=== PATIENT | male | born 1945 | race Caucasian/White ===

== ENCOUNTER 2019-05-13 11:00 | Outpatient (RCR) | payer MEDICARE, SELFPAY ==
--- NOTE | 2019-04-12 12:44 | LSVTBIG ---
PHYSICAL THERAPY EVALUATION AND LSVT RECOMMENDATION Thank you for referring this patient to [facility]. I recommend All Bernabe participate in skilled PT with LSVT BIG program to promote optimal function. Please review, sign, date and return this plan of care NICHO. I agree with and certify that the following plan of care is medically necessary. Referring Physician Date Therapy Discipline Physical Therapy Evaluation Self Report Self Report Pain Level 0 Parkinson's Related History Parkinson's Related History Diagnosis/Stage Date Of Initial 15 years ago Diagnosis What Were Your Initial Symptoms Of tremor Parkinson's Disease? Do You Have A Tremor? Yes Describe Tremors right hand only Medication For Parkinson's Disease carbadopa-levadopa In What Ways Are Your Medications For reduce tremor, increases Parkinson's Helpful? overall mobility; takes Prapexole for tremor Does Your Parkinson Medication Affect stuttering steps, decreased Your Movement? Please Describe voice, decreased amplitude Do You Experience Dyskinesias? yes Have You Had Orthopedic Surgery? Please no orthopedic surgeries, but Describe left knee has history of injury and is painful Social History Social History Stair Rails Yes,Bilateral What House Hold Chores Do You loading and unloading dishes; Participate In? takes trash bags out to trash cans takes laundry in and out; patient has been hospitalized twice (impacted bowels, dehydration) since last bout of physical therapy LSVT program that was just under a year ago. All is now using a wheelchair more often and has decreased ability to use rollator. he is also using walking sticks (learned from [employer] class after hospitalization). Motor Symptoms Motor Symptoms What Do You Do When You Want To Move The take a deep breath and try Best You Possibly Can? again straighten back up Has Parkinson's Disease Caused You To Be Yes Less Active? How Has Parkinson's Disease Caused You is now using a wheelchair to To Be Less Active? enter/exit restaurants, when several months ago he was using rollator Have You Noticed If Your Movement Is Yes Slower Than It Used To Be? Query Text:i.e. Walking,Getting Dressed Have You Noticed Changes In Your Posture Yes ?
--- NOTE | 2019-04-15 11:14 | LSVTBIG ---
OCCUPATIONAL THERAPY INITIAL LSVT EVALUATION Thank you for referring this patient to [facility]. This patient will benefit from skilled therapy services for LSVT BIG program. Plan to have the patient attend OT 2x/week and PT 2x/week for 4 sessions/week for 4 weeks. Please review, sign, date and return this plan of care NICHO. I agree with and certify that the following plan of care is medically necessary. Referring Physician Date Attending Provider: Alex Carroll MD *LSVT BIG Evaluation Start: 04/12/19 10:41 Freq: Status: Active Protocol: Document 04/15/19 10:07 ALEXANDRA (Rec: 04/15/19 10:39 ALEXANDRA [email or web address]) Therapy Discipline Therapy Discipline Therapy Discipline Occupational Therapy Therapy Assessment Status Assessment Status Assessment Status Evaluation Pain Assessment Timing of Pain Assessment Timing of Pain Assessment Assessment Self Report Self Report Pain Level 0 Pain Score Pain Score 0: Self Report Parkinson's Related History Parkinson's Related History Diagnosis/Stage Date Of Initial 15 years ago Diagnosis What Were Your Initial Symptoms Of tremor Parkinson's Disease? Do You Have A Tremor? Yes Describe Tremors right hand only Medication For Parkinson's Disease carbadopa-levadopa In What Ways Are Your Medications For reduce tremor, increases Parkinson's Helpful? overall mobility; takes Prapexole for tremor Does Your Parkinson Medication Affect stuttering steps, decreased Your Movement? Please Describe voice, decreased amplitude Do You Experience On/Off Symptoms? worst in the morning, best Please Describe after his second dose of medication Do You Experience Dyskinesias? yes Have You Had Orthopedic Surgery? Please no orthopedic surgeries, but Describe left knee has history of injury and is painful Social History Social History Stair Rails Yes,Bilateral What House Hold Chores Do You loading and unloading dishes; Participate In? takes trash bags out to trash cans takes laundry in and out; it's been about a month since he's been able to take the trash cans to the street; he depends on the walker so much that he cannot carry items and walk at the same time, which limits his ability to carry his clothes into the bathroom to take a shower, carrying drinks and snaks from one room to
--- NOTE | 2019-05-03 11:05 | PCOTNOTE ---
Patient called and cancelled tx today. No reason given.
--- NOTE | 2019-05-11 11:10 | PCPTNOTE ---
Patient called & cancelled scheduled appointment this date due to being ill.
--- NOTE | 2019-05-13 11:51 | LSVTBIG ---
OCCUPATIONAL THERAPY DISCHARGE REPORT 05/13/2019 Thank you for referring this patient to [facility][Note 3]. All has completed 4 weeks of LSVT BIG program and will be discharged from skilled OT at this time. Please review, sign, date and return this D/C Report NICHO. I agree with and certify that the following plan of care is medically necessary. Referring Physician Date Admitting Provider: Attending Provider: Alex Carroll MD Referring Provider: *LSVT BIG Re-Evaluation Therapy Discipline Therapy Discipline Occupational Therapy Therapy Assessment Status Assessment Status Re-evaluation Evaluation Information Problem Diagnosis Parkinson's Disease Additional Evaluation Detail All is a 74 year-old, left handed male who has been participating in outpatient occupational and physical therapy for treatment of his neurological movement disorder , PD, utilizing LSVT BIG treatment program. All and his has been very compliant and cooperative throughout the program. He has been completing a series of repetitive exercises and functional tasks targeting gross flexibility, challenging his balance, facilitating big movements, and big posture. These exercises are aimed at increased amplitude of movement while addressing the sensorimotor mismatch of PD with the end goal of retraining All's perception of normal movement. Subjective Information All and his report that Query Text:As Reported By Patient/ he has improved functionally Family with getting around the kitchen, walking through doors , walking distances, LB dressing tasks. She states that his episodes of freezing are about the same and are especially worse when going through doorways. Pain Assessment Timing of Pain Assessment Timing of Pain Assessment Re-assessment Self Report Self Report Pain Level 0 Pain Score Pain Score 0: Self Report ADL Assessment ADL Assessment Timed Mobility Related Task Simulated task - unloading
--- NOTE | 2019-05-17 11:45 | PCPTNOTE ---
PHYSICAL THERAPY PLAN OF CARE UPDATE AND PROGRESS REPORT Thank you for referring this patient to [facility]. I recommend All Bernabe continue to participate in physical therapy 2/week for 4 weeks in order to re-emphasize gait pattern, balance, and strength. While he demonstrates progress toward more normal levels of function,he and his hope to see what more function can be gained. Please review, sign, date and return this plan of care NICHO. I agree with and certify that the following plan of care is medically necessary. Referring Physician Date Therapy Discipline Physical Therapy Re-assessment Parkinson's Related History Diagnosis/Stage Date Of Initial 15 years ago Diagnosis What Were Your Initial Symptoms Of tremor Parkinson's Disease? Do You Have A Tremor? Yes Describe Tremors right hand only Medication For Parkinson's Disease carbadopa-levadopa In What Ways Are Your Medications For reduce tremor, increases Parkinson's Helpful? overall mobility; takes Prapexole for tremor Does Your Parkinson Medication Affect stuttering steps, decreased Your Movement? Please Describe voice, decreased amplitude Do You Experience Dyskinesias? yes Have You Had Orthopedic Surgery? Please no orthopedic surgeries, but Describe left knee has history of injury and is painful Social History Stair Rails Yes,Bilateral What House Hold Chores Do You loading and unloading dishes; Participate In? takes trash bags out to trash cans takes laundry in and out; patient has been hospitalized twice (impacted bowels, dehydration) since last bout of physical therapy LSVT program that was just under a year ago. All is now using a wheelchair more often and has decreased ability to use rollator. he is also using walking sticks (learned from [employer] class after hospitalization). Motor Symptoms No new falls; uses Walking sticks in order to walk from car and house; has had a couple of episodes of increased dementia related deficit Balance Assessment Teixeira Balance Assessment: 49/56 improved from 42/56 Time Up Go (TUG) Timed Up and Go Test 21seconds improved from 41seconds Assistive Devices Walker, Rollator Comments significant freezing noted with turning 5 Time Sit to Stand Time in Seconds 10.28seconds improved from 13.43seconds Gait Assessment Gait Pattern Assessment Gait Pattern Shuffled Gait Other
--- NOTE | 2019-05-18 12:58 | PCPTNOTE ---
Patient called & cancelled scheduled appointments until 06/07/2019 due to COVID-19 concerns. They will call paper machine backtender to the date of 06/07/2019 to determine if that appointment will be kept. Care plan will be left open until 06/07/2019 unless otherwise stated.
--- NOTE | 2019-05-26 13:51 | PCPTNOTE ---
Patient called & cancelled scheduled appointment this date due to Covid 19
--- NOTE | 2019-05-26 14:12 | PCPTNOTE ---
Patient has cancelled all appointments until 06/07/2019 due to COVID-[address]/precautions. Will hold his charge for up to 30days beyond this date due to possible further precautions.
--- NOTE | 2019-06-14 13:28 | PCPTNOTE ---
Attending Provider: Alex Carroll MD Patient:All Bernabe Date of :1945 All had originally cancelled and delayed appointments due to COVID-19 precautions but he has now cancelled his appointments indefinitely. We will be happy to work with him in the future, but at this time his chart will be discharged. The goals have been partially met. [facility]. Please review, sign, date and return this discharge summary NICHO. I have been updated about the patient's current status and I agree with discharge from the above service at this time. Referring Physician Date
== END 2019-06-15 08:33 | disposition home or self-care (01) ==
LOC: ANHOT 11:00
PROVIDERS: PCP Family Medicine Adolescent Medicine; Visit Provider Psychiatry & Neurology Neurology
DX: G20 Parkinson's disease (principal)
CPT/HCPCS: 97110; 97162; 97530; 97535

== ENCOUNTER 2019-12-24 06:57 | Outpatient (NON) | payer MEDICARE, SELFPAY ==
[2019-12-24 17:45] LABS: SARS-CoV-2 RNA PCR Negative
== END 2019-12-24 06:58 ==
LOC: ANHCOVIDDT 06:57
PROVIDERS: PCP Family Medicine Adolescent Medicine; Visit Provider Family Medicine Adolescent Medicine
DX: Z20.828 Contact with and (suspected) exposure to other viral communicable diseases (principal); R50.9 Fever, unspecified
CPT/HCPCS: 87635; C9803; U0003

== ENCOUNTER 2020-05-03 19:55 | Inpatient (IN) | payer MEDICARE, SELFPAY ==
--- NOTE | ~2020-05-03 | XR_ITS ---
EXAMINATION: XR abdomen NG/feed tube insert DATE: 05/04/2020 02:25 INDICATION: Nasogastric tube placement. TECHNIQUE: An upright view of the abdomen was obtained. COMPARISON: CT abdomen and pelvis 05/04/2020 FINDINGS: The lower abdomen is excluded. There is dilated small bowel in the midabdomen. The colon is normal in caliber. The nasogastric tube tip is in the stomach. There are changes of vertebroplasty i n lumbar spine. IMPRESSION: 1. Nasogastric tube tip in the stomach. 2. Small bowel obstruction. Reviewed, dictated and finalized at location A. RVISOR SLATE SPLITTING
--- NOTE | ~2020-05-03 | XR_ITS ---
EXAMINATION: XR abdomen/kub 1V EXAM DATE: 05/06/2020 05:36 INDICATION: Small bowel obstruction. Mesenteric masses. TECHNIQUE: Frontal projection(s) of the abdomen for interpretation. Comparison is made to prior exami nation from 05/04/2020. FINDINGS: There are multiple loops of severely distended small bowel, more loops identified on this e xam, although there could just be more gas present making them visible. Feeding tube is no longer eugenia ntified. There are chronic lumbar compression fractures with methylmethacrylate injections at L1 and L2. Lung bases are unremarkable. IMPRESSION: 1. Severely distended small bowel consistent with obstruction. 2. Feeding tube not identified. Reviewed, dictated and finalized at location A. IC HEALTH DIETITIAN
--- NOTE | ~2020-05-03 | XR_ITS ---
EXAMINATION: XR abdomen obstructive series DATE: 05/04/2020 17:19 INDICATION: Possible small bowel obstruction TECHNIQUE: Upright and supine views of the abdomen were obtained. COMPARISON: 0226 hours FINDINGS: The nasogastric tube is in the stomach. Dilated loops of small bowel persist in the midabdo men. No free intraperitoneal gas is identified. Vertebroplasty changes are noted in the lumbar spine. There are minimal airspace opacities of the lung bases, likely atelectasis and pneumonia. IMPRESSION: 1. Small bowel obstruction. 2. Nasogastric tube in the stomach. Reviewed, dictated and finalized at location A. RITY SYSTEMS ENGINEER
--- NOTE | ~2020-05-03 | XR_ITS ---
EXAMINATION: XR chest 1V portable DATE: 05/04/2020 05:56 INDICATION: Multifocal pneumonia. TECHNIQUE: A single frontal view of the chest was obtained. COMPARISON: Chest single view 05/24/2018, CT abdomen and pelvis 05/04/2020 FINDINGS: There are airspace opacities in the lower lung zones. No pleural effusion or pneumothorax. The heart size is normal. The nasogastric tube tip is in the stomach. IMPRESSION: 1. Airspace opacities in the lower lung zones, likely a combination of atelectasis and pneumonia. Reviewed, dictated and finalized at location A. STANT PROFESSOR OF ART IMPRESSION: 1. Airspace opacities in the lower lung zones, likely a combination of atelecta sis and pneumonia.
--- NOTE | ~2020-05-03 | CT_ITS ---
EXAMINATION: CT abdomen pelvis w con DATE: 05/04/2020 00:36 INDICATION: Epigastric abdominal pain. TECHNIQUE: Computed tomography (CT) of the abdomen and pelvis was performed with 100 mL Omnipaque 350 intravenous contrast. Automated exposure control and iterative reconstruction technique were employe d. The dose-length product was 698.38 mGy-cm. COMPARISON: CT abdomen and pelvis 01/21/2019, 08/05/2013 FINDINGS: The visualized portions of the lung bases demonstrates groundglass opacities in the lower l obes, right middle lobe, and lingula. There is crazy paving in right middle lobe. There are airspace opacities with volume loss in the lower lobes. There are tree-in-bud opacities in the lingula. No ple ural effusion. There is left atrial enlargement of the heart. No pericardial effusion. There are rosa nary artery calcifications. There are cysts in the liver measuring up to 2.2 cm. There are gallstones in the gallbladder, which is normal in size. The spleen, pancreas, and adrenal glands are normal. Th ere are simple cysts and hemorrhagic cysts in the kidneys measuring up to 9.4 cm on the left. There i s a 3.0 cm mass in right kidney measuring soft tissue attenuation. There are 3 stones in left kidney measuring up to 7 mm. The appendix is normal. There are multiple dilated loops of small bowel with tr ansition point in right abdomen. The dilatation of these bowel loops is worse than on the prior exam, but both exams demonstrate areas of bowel wall thickening. There is a lipoma in the ascending colon. There are mesenteric masses measuring up to 3.5 x 1.9 cm, increased from 3.0 x 1.9 cm on 01/21/19. T he largest such mass is partially calcified. The second largest mass measures 2.3 x 1.9 cm, increased from 2.1 x 1.4 cm. There is a left inguinal hernia containing fat. There is no free intraperitoneal fluid. There are benign bone islands in the pelvis. There is surgical clips from pelvic lymph node di ssection. There are multiple chronic vertebral body fractures. There are changes of vertebroplasty in L1 and L2. There is a benign bone island in T11 vertebral body. There are multiple hemangiomas in th e spine. IMPRESSION: 1. 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 2. Small bowel obstruction with transition point in right abdomen, likely chronic or recurrent. 3. Diffuse disease in the inferior lungs, most likely pneumonia (especially atypical pneumonia such a s COVID-19 pneumonia). 4. 3.0 cm right kidney mass, which may be a hemorrhagic cyst or less likely a solid neoplasm. Abdomen CT without and with contrast is recommended. Reviewed, dictated and finalized at location A. TABLE TESTER IMPRESSION: 1. 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 2. Small bowel obstruction with transition point in right abdomen, likely chron ic or recurrent. 3. Diffuse disease in the inferior lungs, most likely pneumonia (especially aty pical pneumonia such as COVID-19 pneumonia). 4. 3.0 cm right kidney mass, which may be a hemorrhagic cyst or less likely a s olid neoplasm. Abdomen CT without and with contrast is recommended.
--- NOTE | 2020-05-03 20:00 | ECG_ITS ---
Measurements Intervals Loyal Rate: 85 P: 10 MN: 137 QRS: -60 QRSD: 144 T: 14 QT: 388 QTc: 464 Interpretive Statements SINUS RHYTHM RIGHT BUNDLE BRANCH BLOCK LEFT ANTERIOR FASCICULAR BLOCK BASELINE ARTIFACT- I, III, AVR, AVL, AVF, V2-V3 ABNORMAL ECG Electronically Signed On 05-04-2020 7:11:21 DIRECTOR OF PERIOPERATIVE SERVICES by Nelson Carranza D.O.
[2020-05-03 20:13] VITALS: BP 154/84; PULSE 91; RESP 16; TEMP 36.8; O2SAT 95
[2020-05-03 21:24] LABS: Basophils Percent Auto 0.3 % (0.2-1.2); Eosinophils Absolute Auto 0.1 K/mm3 (0-0.3); Eosinophils Percent Auto 0.9 % (0-4.4); Hematocrit 39.4 % (42.0-52.0); Hemoglobin 13.3 g/dL (14.0-18.0); Immature Granulocyte Absolute 0.02 K/mm3 (0.00-0.031); Immature Granulocyte Percent A 0.3 % (0-0.5); Lymphocytes Absolute Auto 1.38 K/mm3 (0.9-3.2); Lymphocytes Percent Auto 18.5 % (18.3-44.2); Mean Corpuscular HGB Conc 33.8 g/dl (32-36); Mean Corpuscular Hemoglobin 32.1 pg (26-34); Mean Corpuscular Volume 95.2 fl (80-100); Mean Platelet Volume 9.6 fl (7.4-10.4); Monocytes Absolute Auto 0.8 K/mm3 (0.1-0.6); Neutrophils Absolute Auto 5.1 K/mm3 (1.3-6.7); Platelet Count Result 272 k/mm3 (150-375); Red Blood Count 4.14 M/mm3 (4.6-6.20); Red Cell Distribution Width 12.5 % (11.5-14.5); White Blood Count 7.5 K/mm3 (4.5-10.0)
[2020-05-03 21:38] LABS: Albumin Level 3.9 g/dL (3.5-5.1); Alkaline Phosphatase 109 U/L (38-126); Anion Gap 3 mmol/L (8-16); Aspartate Amino Transferase 25 U/L (17-59); Bilirubin,Total 0.7 mg/dL (0.2-1.3); Blood Urea Nitrogen 21 mg/dL (9-20); Calcium 8.8 mg/dL (8.4-10.2); Carbon Dioxide 30 mmol/L (22-30); Chloride 103 mmol/L (98-107); Estimated CRCL calculation 68 ml/min; Estimated Glomerular Filt Rate > 60; Glucose 115 mg/dL (75-110); Lipase 55 U/L (23-300); Potassium 3.7 mmol/L (3.4-5.0); Sodium 136 mmol/L (137-145)
[2020-05-03 21:44] LABS: Alanine Aminotransferase 5 U/L (4-50)
[2020-05-03 22:19] LABS: Add Urine Microscopic? YES; Appearance Urine Clear (Clear); Bilirubin Urine Negative (Negative); Blood Urine Negative (Negative); Color Urine Yellow (Yellow); Glucose Urine UA Negative (Negative); Ketones Urine Trace mg/dL (Negative); Leukocyte Esterase Ur Negative LEU/UL (Negative); Mucus Urine Heavy /lpf; Nitrate Urine Negative (Negative); Protein Urine 1+ mg/dL (Negative); WBC Urine 0-3 /hpf
[2020-05-03 22:21] LABS: Specific Grav Ur 1.031 (1.001-1.035)
[2020-05-03 23:34] VITALS: BP 149/94; PULSE 82; RESP 16; TEMP 36.6; O2SAT 94
--- NOTE | 2020-05-03 23:39 | ED.ABDPAIN ---
HPI - Abdominal Pain General Chief Complaint: Abdominal Pain Stated Complaint: chest pain Time Seen by Provider: 05/03/20 23:38 Source: patient Mode of arrival: ambulatory Limitations: no limitations History of Present Illness HPI narrative: Patient is a 75-year-old male complaining of abdominal pain, diffuse, 6 out of 10, dull, nonradiating, started today. Patient also complaining of constipation but states he's had liquid stools . states that they have tried multiple laxatives and enemas, usually they do not work, the only thing that works is when they admitted him a year ago and they did a procedure which doctor described to them as water hose shoved up his rectal area. Patient denies any chest pain, shortness of breath, nausea, vomiting, fever, chills or urinary symptoms. Patient states that he has a history of GERD. Related Data Home Medications Medication Instructions Recorded Confirmed aspirin [Ernesto Aspirin] 325 mg PO DAILY 01/21/19 01/21/19 atorvastatin [Lipitor] 40 mg DAILY 01/21/19 01/21/19 carbidopa-levodopa [Sinemet] 3.5 tablet PO QID 01/21/19 01/22/19 escitalopram oxalate [Lexapro] 10 mg PO DAILY 01/21/19 01/21/19 multivit with min-folic acid 200 mcg PO DAILY 01/21/19 01/21/19 omeprazole 20 mg PO DAILY 01/21/19 01/21/19 pramipexole [Mirapex] 0.5 mg PO QID 01/21/19 01/21/19 trazodone 50 mg PO HS 01/21/19 01/21/19 Allergies Allergy/AdvReac Type Severity Reaction Status Date / Time No Known Allergies Allergy Verified 05/03/20 23:37 Review of Systems Review of Systems: All systems reviewed & are unremarkable except as noted in HPI and below Constitutional: Constitutional: Denies body ache(s), Denies chills, Denies excessive sweating, Denies fatigue, Denies fever(s), Denies headache(s), Denies lethargy, Denies malaise, Denies weakness and Denies weight loss Eyes: Eyes: Denies blurry vision, Denies change in vision and Denies loss of vision ENT: Denies dizziness, Denies ear discharge, Denies headache(s), Denies lip swelling, Denies epistaxis, Denies nasal congestion, Denies neck pain, Denies throat swelling and Denies tongue swelling Cardiovascular: Cardiovascular: Denies chest pain, Denies chest pain at rest, Denies chest pain with activity, Denies diaphoresis, Denies rapid heart rate, Denies edema, Denies irregular heart rhythm, Denies lightheadedness, Denies palpitations, Denies dyspnea and Denies dyspnea on exertion Respiratory: Respiratory: Denies chest congestion, Denies cough, Denies hemoptysis, Denies dyspnea and Denies dyspnea on exertion Gastrointestinal: Gastrointestinal: Denies melena, Denies hematochezia, Denies diarrhea, Denies nausea, Denies vomiting and Denies hematemesis Musculoskeletal: Musculoskeletal: Denies abnormal gait, Denies deformity, Denies joint swelling, Denies limited range of motion, Denies neck pain and Denies numbness Neurologic: Denies Abnormal speech present, Denies abnormal gait, Denies confusion, Denies dizziness, Denies headache(s), Denies focal weakness, Denies loss of vision, Denies numbness, Denies Other visual disturbances, Denies Sensory deficit (Neuro) and Denies weakness Psychiatric: Psychiatric: Denies confusion, Denies depression, Denies auditory hallucinations, Denies homicidal ideation and Denies suicidal ideation Endocrine: Endocrine: Denies cold intolerance, Denies excessive sweating, Denies fatigue, Denies heat intolerance and Denies palpitations Hematologic/Lymphatic: Hematologic/Lymphatic: Denies easy bleeding and Denies easy bruising Allergic/Immunologic: Allergic/Immunologic: Denies lip swelling, Denies throat swelling and Denies tongue swelling [facility] Past Medical History Medical History (Updated 05/04/20 @ 01:45 by Ronny Lozoya MD) Back pain CVA (cerebral vascular accident) With residual rt sided deficits. Diplopia GERD (gastroesophageal reflux disease) History of esophageal dilatation History of esophageal stricture HLD (hyperlipidemia) K
[2020-05-04] VITALS (9 sets, daily range): BP systolic 130–159; BP diastolic 77–99; PULSE 70–86; RESP 16–20; TEMP 36.6–37.4; O2SAT 92–100; BMI 25.4; BMI 26.1
[2020-05-04] MEDS: SODIUM CHLORIDE 0.9% IV 1,000 ML 999 ML IV CONT (00:51)
[2020-05-04] MEDS: PANTOPRAZOLE SODIUM IV 40 MG VIAL IV PUSH (00:51)
[2020-05-04] MEDS: HYDROmorphone HCL INJ (*CRX) 1 MG/ML SYR 0.5 MG IV PUSH (02:03)
[2020-05-04] MEDS: ONDANSETRON INJ 4 MG/2 ML VIAL IV PUSH (02:03)
[2020-05-04 03:21] LABS: Lactic Acid Reflex 0.7 mmol/L (0.7-2.1)
--- NOTE | 2020-05-04 03:28 | PC.NURSE ---
This patient, All Bernabe, was received from [ED ] on 05/04/20 at 0315. Patient/family oriented to unit policies and routines
--- NOTE | 2020-05-04 04:12 | PM.IMHP ---
H&P: HPI History of Present Illness Date/Time: 05/04/20 04:12 Chief Complaint: abdominal pain and constipation+ Narrative: This is a pleasant 75 year old male with known history of previous CVA, Parkinson's disease, and previous prostate cancer who presented to the hospital with a complaint of constipation for the past 4 days. Today he started to have diffuse abdominal pain with associated abdominal distention. He reports that he had a similar episode about 2 years ago when he required a procedure to 'clean him out'. He has apparently tried laxatives and enemas without success. He denies any recent fevers, chills, cough, chest pain, shortness of breath, nausea, vomiting, diarrhea, or rectal bleeding. He was evaluated in the ER and found to have a high grade small bowel obstruction. NG tube was inserted and the General surgery was consulted by ER provider. We have been asked to admit the patient to the hospital and general surgery will evaluate him in the morning. NO other complaints. Review of Systems Review of Systems: All systems reviewed & are unremarkable except as noted in HPI and below PMFSH Past Medical History Medical History Back pain CVA (cerebral vascular accident) With residual rt sided deficits. Diplopia GERD (gastroesophageal reflux disease) History of esophageal dilatation History of esophageal stricture HLD (hyperlipidemia) Kidney stone Osteoporosis Parkinsons disease Pelvis fracture Prostate cancer Ptosis, left eyelid Skin cancer Surgical History Surgical History H/O prostatectomy History of tonsillectomy Family History Family History Sibling Breast cancer Social History Social History Smoking status: Never smoker Second hand tobacco smoke exposure: Yes Alcohol intake: never Substance use: never Substance use type: does not use Gender identity (if verbalized by the patient): Male Spiritual care concerns: No Agree to blood products: Yes Meds Home Medications and Allergies Home Medications Medication Instructions Recorded Confirmed Type aspirin [Ernesto Aspirin] 325 mg PO DAILY 01/21/19 05/04/20 History atorvastatin [Lipitor] 40 mg DAILY 01/21/19 05/04/20 History carbidopa-levodopa [Sinemet] 3.5 tablet PO QID 01/21/19 05/04/20 History escitalopram oxalate [Lexapro] 10 mg PO DAILY 01/21/19 05/04/20 History multivit with min-folic acid 200 mcg PO DAILY 01/21/19 05/04/20 History omeprazole 20 mg PO DAILY 01/21/19 05/04/20 History pramipexole [Mirapex] 0.5 mg PO QID 01/21/19 05/04/20 History trazodone 50 mg PO HS 01/21/19 05/04/20 History mineral oil 15 ml PO DIRECTED #1000 ml 01/25/19 05/04/20 Rx polyethylene glycol 3350 [Miralax] 17 g PO QAM PRN 30 Days each 01/25/19 05/04/20 Rx psyllium husk (with sugar) 3.4 g PO DIRECTED 30 Days each 01/25/19 05/04/20 Rx [Metamucil (with sugar)] Allergies Allergy/AdvReac Type Severity Reaction Status Date / Time No Known Allergies Allergy Verified 05/03/20 23:37 Vital Signs Vital Signs - 24 hr 05/03/20 20:13 05/03/20 23:34 05/04/20 02:01 Temperature 36.8 C 36.6 C Pulse Rate 91 82 83 Respiratory Rate 16 16 16 Blood Pressure 154/84 H 149/94 H 135/85 Pulse Oximetry 95 94 94 05/04/20 02:50 05/04/20 03:15 Temperature 36.6 C 36.8 C Pulse Rate 86 77 Respiratory Rate 16 20 Blood Pressure 132/87 132/85 Pulse Oximetry 100 93 Exam Const: General: cooperative, alert, awake and ill appearing Nutritional Appearance: well nourished Orientation/consciousness: patient oriented x3 HENMT: Head: normal to inspection General nose exam: Normal external nose present Face and sinus: normal facial exam Mouth: Yes Normal oral and palatal mucosa present and Yes oropharynx normal Eyes: Pupils: Equal, r
[2020-05-04 06:52] LABS: Basophils Percent Auto 0.2 % (0.2-1.2); Eosinophils Absolute Auto 0.1 K/mm3 (0-0.3); Eosinophils Percent Auto 1.1 % (0-4.4); Hematocrit 34.4 % (42.0-52.0); Hemoglobin 11.4 g/dL (14.0-18.0); Immature Granulocyte Absolute 0.01 K/mm3 (0.00-0.031); Immature Granulocyte Percent A 0.2 % (0-0.5); Lymphocytes Absolute Auto 1.43 K/mm3 (0.9-3.2); Mean Corpuscular HGB Conc 33.1 g/dl (32-36); Mean Corpuscular Hemoglobin 32.1 pg (26-34); Mean Corpuscular Volume 96.9 fl (80-100); Mean Platelet Volume 9.9 fl (7.4-10.4); Monocytes Absolute Auto 0.7 K/mm3 (0.1-0.6); Monocytes Percent Auto 12.5 % (2.6-8.5); Neutrophils Absolute Auto 3.1 K/mm3 (1.3-6.7); Platelet Count Result 227 k/mm3 (150-375); Red Blood Count 3.55 M/mm3 (4.6-6.20); Red Cell Distribution Width 12.8 % (11.5-14.5); White Blood Count 5.3 K/mm3 (4.5-10.0)
[2020-05-04 07:53] LABS: Anion Gap 5 mmol/L (8-16); Blood Urea Nitrogen 20 mg/dL (9-20); Carbon Dioxide 26 mmol/L (22-30); Chloride 106 mmol/L (98-107); Estimated CRCL calculation 86 ml/min; Estimated Glomerular Filt Rate > 60; Glucose 101 mg/dL (75-110); Sodium 137 mmol/L (137-145)
[2020-05-04] MEDS: LACTATED RINGERS 1,000 ML 100 ML IV CONT (08:55)
--- NOTE | 2020-05-04 12:03 | PM.CNGS ---
Assessment and Plan Assessment and plan (1) Bowel obstruction: Onset Date: ~05/03/20 Qualifiers: Intestinal obstruction extent: unspecified extent Intestinal obstruction type: unspecified Qualified Code(s): K56.609 - Unspecified intestinal obstruction, unspecified as to partial versus complete obstruction Code(s): K56.609 - Unspecified intestinal obstruction, unspecified as to partial versus complete obstruction Status: Acute Assessment and Plan: Patient has signs of a small-bowel obstruction on CT scan. He has previously had an open prostatectomy so is at risk for adhesions. Parent had 1 episode of similar symptoms which was more secondary to constipation related to poor peristalsis of the bowel related to his Parkinson's about 2 years ago. Will try conservative management first with NG decompression IV fluids and watchful waiting. Repeat labs and plain abd. x-ray in AM. (2) Abnormal CT of the abdomen: Onset Date: ~05/03/20 Code(s): R93.5 - Abnormal findings on diagnostic imaging of other abdominal regions, including retroperitoneum Status: Acute Assessment and Plan: See report from early this morning. (3) Constipation, acute: Onset Date: Unknown Code(s): K59.00 - Constipation, unspecified Status: Acute Assessment and Plan: Will initially try some suppositories or enemas and see how the patient comes a long period in NG is not draining a lot right now. (4) Parkinsons disease: Onset Date: Unknown Code(s): G20 - Parkinson's disease Status: Chronic Assessment and Plan: As per medicine service. Once he has his NG is out will try to resume his Parkinson's medications. (5) Chronic anemia: Code(s): D64.9 - Anemia, unspecified Status: Chronic History of Present Illness Consult details Consult date: 05/04/20 Reason for consult: abdominal pain Requesting physician: Yvon Randle MD Narrative: This is a pleasant 75 year old male with known history of previous CVA, Parkinson's disease, and previous prostate cancer who presented to the [facility] department with a complaint of constipation for the past 4 days. He states started to have diffuse abdominal pain with associated abdominal distention 2 -3 days ago. He reports that he had a similar episode about 2 years ago when he required a procedure to 'clean him out'. He has apparently tried laxatives and enemas without success. He denies any recent fevers, chills, cough, chest pain, shortness of breath, nausea, vomiting, diarrhea, or rectal bleeding. He was evaluated in the ER and found to have a high grade small bowel obstruction. NG tube was inserted and the General surgery was consulted by ER provider. We have been asked to admit the patient to the hospital and general surgery will evaluate him in the morning. NO other complaints. Patient and his Who talked to on the phone as that he just received his COVID shot (immunization) approximately 5-6 days ago at [facility] in [place]. Otherwise she states that they have been core and teen as best possible away from others. Patient confirms the above history. She states that the laxatives and enemas did work the last time he was in and he apparently had some procedure which washed out the colon or small bowel. She thinks that the will be on the record from when he was in 2 years ago. Review of Systems Constitutional: Constitutional: Reports as per HPI and Denies headache(s) Eyes: Eyes: Denies loss of vision and Denies eye pain Comments: Left eyelid droop, long-standing ENT: Reports Normal hearing present, Denies change in voice, Denies dizziness and Denies headache(s) Cardiovascular: Cardiovascular: Denies chest pain and Denies dyspnea Respiratory: Respiratory: Denies chest congestion, Denies cough, Denies dyspnea and Denies wheezing Gastrointestinal: Gastroint
[2020-05-04] MEDS: MAGNESIUM HYDROXIDE SUSP 30 ML UDC FEED TUBE (13:12)
[2020-05-04] MEDS: BISACODYL 10 MG SUPPOSITORY RECTAL (13:12)
--- NOTE | 2020-05-04 14:52 | PM.IMPN ---
Progress Note: A&P Assessment and Plan (1) Bowel obstruction: Onset Date: ~05/03/20 Qualifiers: Intestinal obstruction extent: unspecified extent Intestinal obstruction type: unspecified Qualified Code(s): K56.609 - Unspecified intestinal obstruction, unspecified as to partial versus complete obstruction Code(s): K56.609 - Unspecified intestinal obstruction, unspecified as to partial versus complete obstruction Status: Acute Assessment and Plan: NPO IV fluids I/O's NG in Appreciate surgery note (2) GERD (gastroesophageal reflux disease): Qualifiers: Esophagitis presence: esophagitis presence not specified Qualified Code(s): K21.9 - Gastro-esophageal reflux disease without esophagitis Code(s): K21.9 - Gastro-esophageal reflux disease without esophagitis Status: Chronic Assessment and Plan: PPI (3) Parkinsons disease: Onset Date: Unknown Code(s): G20 - Parkinson's disease Status: Chronic Assessment and Plan: NPO Holding meds (4) Chronic anemia: Code(s): D64.9 - Anemia, unspecified Status: Chronic Assessment and Plan: Continue to monitor (5) CVA (cerebral vascular accident): Code(s): I63.9 - Cerebral infarction, unspecified Status: Acute Assessment and Plan: Unchanged Continue to monitor Subjective Date/time seen: 05/04/20 14:52 States that he is ok Review of Systems Review of Systems: Narrative: constipation, abdominal pain and distention. Constitutional: Comments: no fevers, no rigors, no chills. Cardiovascular: Comments: no chest pain, no pnd Respiratory: Comments: no cough, no sputum production. Gastrointestinal: Comments: abdominal distention and pain, constipation. Musculoskeletal: Comments: no joint pain Integumentary/Breasts: Comments: no rashes Neurologic: Comments: no sensory motor deficit Exam Narrative: Exam Narrative: Lying in bed Const: General: comfortable, no acute distress, alert, awake and Physically active Nutritional Appearance: average body habitus Orientation/consciousness: patient oriented x3 HENMT: Head: normal to inspection and normocephalic Ears: hearing grossly normal bilaterally Face and sinus: normal facial exam Eyes: General: dysmorphic (L topsis) EOM: EOMs intact bilaterally Neck: Neck: no lymphadenopathy and no JVD Resp: Effort & Inspection: normal respiratory effort and able to speak in complete sentences Auscultation: clear to auscultation bilaterally Cardio: Jugular venous distension: no JVD Rate: regular rate Rhythm: regular rhythm GI: Inspection: distended GI Palp: Yes Soft to palpation and Yes No hepatosplenomegaly present Percussion: Yes tympanic to percussion Skin: Rashes: no rashes Neuro: General: patient oriented x3 and CN's II-XI intact bilaterally Cranial nerves: Yes CN's II-XII intact bilaterally and Yes Equal, round and reactive pupils present Cognition (Neuro): normal cognition Speech: normal speech Motor exam (neuro): 5/5 motor strength present throughout Extrem: General: no pedal edema Objective Data Vital Signs Vital Signs: Vital Signs - 24 hr 05/03/20 20:13 05/03/20 23:34 05/04/20 02:01 Temperature 98.3 F 97.9 F Pulse Rate 91 82 83 Respiratory Rate 16 16 16 Blood Pressure 154/84 H 149/94 H 135/85 Pulse Oximetry 95 94 94 05/04/20 02:50 05/04/20 03:15 05/04/20 06:00 Temperature 97.8 F 98.2 F 98.3 F Pulse Rate 86 77 78 Respiratory Rate 16 20 20 Blood Pressure 132/87 132/85 130/82 Pulse Oximetry 100 93 94 05/04/20 08:00 05/04/20 11:51 05/04/20 12:00 Temperature 97.8 F 98.2 F Pulse Rate 74 74 70 Respiratory Rate 16 16 Blood Pressure 137/85 143/87 H Pulse Oximetry 93 93 93 Intake/Output Intake/Output: Intake & Output 05/01/20 05/02/20 05/03/20 05/04/20 23:59 23:59 23:59 23:59 Intake Total 1500 Output Total 400 Balance 1100 Meds/Results Med
[2020-05-04] MEDS: DEXTROSE 5%/LACTATED RINGERS 1,000 ML 100 ML IV CONT (15:33)
[2020-05-04 23:26] LABS: SARS-CoV-2 RNA PCR Negative
[2020-05-05] VITALS: BP 136/85; PULSE 70; RESP 20; TEMP 36.8; O2SAT 91
[2020-05-05 06:00] VITALS: BP 138/87; PULSE 69; RESP 20; TEMP 36.4; O2SAT 93
[2020-05-05 06:21] LABS: Basophils Percent Auto 0.3 % (0.2-1.2); Eosinophils Absolute Auto 0.1 K/mm3 (0-0.3); Eosinophils Percent Auto 1.7 % (0-4.4); Hematocrit 34.5 % (42.0-52.0); Hemoglobin 11.6 g/dL (14.0-18.0); Immature Granulocyte Absolute 0.01 K/mm3 (0.00-0.031); Immature Granulocyte Percent A 0.2 % (0-0.5); Lymphocytes Absolute Auto 1.29 K/mm3 (0.9-3.2); Lymphocytes Percent Auto 20.3 % (18.3-44.2); Mean Corpuscular HGB Conc 33.6 g/dl (32-36); Mean Corpuscular Hemoglobin 32.3 pg (26-34); Mean Corpuscular Volume 96.1 fl (80-100); Monocytes Absolute Auto 0.7 K/mm3 (0.1-0.6); Monocytes Percent Auto 10.7 % (2.6-8.5); Neutrophils Absolute Auto 4.3 K/mm3 (1.3-6.7); Neutrophils Percent Auto 66.8 % (45.5-73.1); Platelet Count Result 238 k/mm3 (150-375); Red Blood Count 3.59 M/mm3 (4.6-6.20); Red Cell Distribution Width 12.4 % (11.5-14.5); White Blood Count 6.4 K/mm3 (4.5-10.0)
[2020-05-05 06:40] LABS: Anion Gap 2 mmol/L (8-16); Blood Urea Nitrogen 16 mg/dL (9-20); Calcium 8.1 mg/dL (8.4-10.2); Carbon Dioxide 28 mmol/L (22-30); Chloride 105 mmol/L (98-107); Estimated CRCL calculation 76 ml/min; Estimated Glomerular Filt Rate > 60; Glucose 98 mg/dL (75-110); Lipase 38 U/L (23-300); Magnesium 1.9 mg/dL (1.6-2.3); Potassium 3.6 mmol/L (3.4-5.0); Sodium 135 mmol/L (137-145)
[2020-05-05] MEDS: DEXTROSE 5%/LACTATED RINGERS 1,000 ML 100 ML IV CONT ×2 (07:51→18:25)
[2020-05-05] MEDS: PANTOPRAZOLE SODIUM IV 40 MG VIAL IV PUSH (07:53)
--- NOTE | 2020-05-05 08:47 | WPDCDIQUERY2 ---
CDI Query Clarification Request - r/o multifocal pneumonia documented in H&P -3/4 CXR airspace opacities in the lower lung zones, likely a combination of atelectasis and pneumonia. - 3/[address]- diffuse disease in the inferior lungs, most likely pneumonia (especially atypical pneumonia such as COVID 19 pneumonia) -Pt is on Ceftriaxone and Azithromycin Please clarify if pneumonia has been ruled in or ruled out. <Lidia Calero RN - Last Filed: 05/05/20 08:58> Clarified Diagnosis (1) Pneumonia: Code(s): J18.9 - Pneumonia, unspecified organism <Lidia Calero RN - Last Filed: 05/05/20 08:58> Status: Acute <Lidia Calero RN - Last Filed: 05/05/20 08:58> Assessment and Plan: Currently on Rocephin and Zithromax Await cx Continue to monitor <Reece Watkins MD - Last Filed: 05/05/20 17:36>
[2020-05-05] MEDS: BISACODYL 10 MG SUPPOSITORY RECTAL (11:56)
[2020-05-05 14:00] VITALS: BP 154/86; PULSE 69; RESP 18; TEMP 36.4; O2SAT 96
--- NOTE | 2020-05-05 17:37 | PM.IMPN ---
Progress Note: A&P Assessment and Plan (1) Pneumonia: Code(s): J18.9 - Pneumonia, unspecified organism Status: Acute Assessment and Plan: Continue Rocephin and Zithromax. Appears to have improved (2) CVA (cerebral vascular accident): Code(s): I63.9 - Cerebral infarction, unspecified Status: Acute Assessment and Plan: Stable Supportive care (3) Bowel obstruction: Onset Date: ~05/03/20 Qualifiers: Intestinal obstruction extent: unspecified extent Intestinal obstruction type: unspecified Qualified Code(s): K56.609 - Unspecified intestinal obstruction, unspecified as to partial versus complete obstruction Code(s): K56.609 - Unspecified intestinal obstruction, unspecified as to partial versus complete obstruction Status: Acute Assessment and Plan: Improved Will repeat KUB in am Ice chips (4) GERD (gastroesophageal reflux disease): Qualifiers: Esophagitis presence: esophagitis presence not specified Qualified Code(s): K21.9 - Gastro-esophageal reflux disease without esophagitis Code(s): K21.9 - Gastro-esophageal reflux disease without esophagitis Status: Chronic Assessment and Plan: On PPI (5) Parkinsons disease: Onset Date: Unknown Code(s): G20 - Parkinson's disease Status: Chronic Assessment and Plan: Stable Continue to monitor Will resume home meds once able to tolerate po Subjective Date/time seen: 05/05/20 17:37 Patient states tht he is feeling much better today. Review of Systems Review of Systems: Narrative: No new issues. Exam Narrative: Exam Narrative: Lying in bed. Const: General: comfortable, no acute distress, alert, awake and Physically active Nutritional Appearance: well nourished Orientation/consciousness: patient oriented x3 HENMT: Head: normocephalic Ears: hearing grossly normal bilaterally General nose exam: Normal external nose present Eyes: EOM: EOM abnormal (L eye ptosis) Neck: Neck: no lymphadenopathy, supple and no JVD Resp: Effort & Inspection: able to speak in complete sentences Auscultation: clear to auscultation bilaterally Cardio: Jugular venous distension: no JVD Rate: regular rate Rhythm: regular rhythm GI: GI Palp: Yes Soft to palpation and Yes No hepatosplenomegaly present Skin: Rashes: no rashes Neuro: General: patient oriented x3 and CN's II-XI intact bilaterally Cranial nerves: Yes CN's II-XII intact bilaterally and Yes Equal, round and reactive pupils present Cognition (Neuro): normal cognition Speech: normal speech Motor exam (neuro): 5/5 motor strength present throughout Extrem: General: no pedal edema Objective Data Vital Signs Vital Signs: Vital Signs - 24 hr 05/04/20 20:00 05/05/20 00:00 05/05/20 06:00 Temperature 99.3 F 98.3 F 97.5 F L Pulse Rate 80 70 69 Respiratory Rate 20 20 20 Blood Pressure 159/99 H 136/85 138/87 Pulse Oximetry 92 91 93 05/05/20 14:00 Temperature 97.6 F Pulse Rate 69 Respiratory Rate 18 Blood Pressure 154/86 H Pulse Oximetry 96 Intake/Output Intake/Output: Intake & Output 05/02/20 05/03/20 05/04/20 05/05/20 23:59 23:59 23:59 23:59 Intake Total 1888 1590 Output Total 700 500 Balance 1188 1090 Meds/Results Medications: Active Medications Generic Name Dose Route Start Last Admin Trade Name Freq PRN Reason Stop Dose Admin Benzocaine 1 lozenge 05/04/20 12:20 Benzocaine/Menthol (*Bkc) 18 Ea Lozenge PO PRN PRN Sore Throat Bisacodyl 10 mg 05/05/20 08:48 05/05/20 11:56 Bisacodyl 10 Mg Suppository RECTAL 10 mg QAM PRN Administration Constipation Hydromorphone HCl 0.5 mg 05/04/20 01:53 Hydromorphone Hcl Inj (*Crx) 1 Mg/Ml Syr IV PUSH Q4H PRN Pain Rated 7-10 Ceftriaxone Sodium 2 gm in 100 mls @ 200 mls/hr 05/04/20 09:00 05/05/20 17:18 Rocephin 2 Gm/D5w 100 Ml IVPB Infused Q24H [facility] Infusion Azithromyc
--- NOTE | 2020-05-05 18:03 | PM.PNGS ---
Progress Note: A&P Assessment and Plan (1) Bowel obstruction: Onset Date: ~05/03/20 Qualifiers: Intestinal obstruction extent: unspecified extent Intestinal obstruction type: unspecified Qualified Code(s): K56.609 - Unspecified intestinal obstruction, unspecified as to partial versus complete obstruction Code(s): K56.609 - Unspecified intestinal obstruction, unspecified as to partial versus complete obstruction Status: Resolved Assessment and Plan: Patient had signs of a small-bowel obstruction on CT scan. He has previously had an open prostatectomy so is at risk for adhesions. Parent had 1 episode of similar symptoms which was more secondary to constipation related to poor peristalsis of the bowel related to his Parkinson's about 2 years ago. Have tried conservative management first with NG decompression IV fluids and watchful waiting. Repeat labs and plain abd. x-ray in AM ----- These seemed to of worked since the patient has had 3 bowel movements I removed his NG tube today will start him on clear liquids. (2) Abnormal CT of the abdomen: Onset Date: ~05/03/20 Code(s): R93.5 - Abnormal findings on diagnostic imaging of other abdominal regions, including retroperitoneum Status: Acute Assessment and Plan: See report from morning Of 2020. (3) Constipation, acute: Onset Date: Unknown Code(s): K59.00 - Constipation, unspecified Status: Acute Assessment and Plan: this has improved and the patient is advancing his diet at this time. Because it appears this was the main reason for the patient's problem will plan to sign off his case at this time. He needs continued treatment for his pneumonia and is not a good candidate for any surgery during this admission. I have given him my card and we will ask him to return to the office to consider possible laparoscopic cholecystectomy at the same time consider possible maneuver movable of 1 of the mesenteric masses to see if we can get a diagnosis for the problem. He has Parkinson's and his neurologist recent region retired. Therefore he will be going to his PCP Dr. Micheal Ortiz 1st regarding his Parkinson's care and they will try to get into him prior to seeing me in the office to talk about antonellar. y (4) Parkinsons disease: Onset Date: Unknown Code(s): G20 - Parkinson's disease Status: Chronic Assessment and Plan: As per medicine service. Once he has his NG is out will try to resume his Parkinson's medications. Patient he has quick follow-up with his PCP to see if he will care for his Parkinson's or if and neurology consultation as an outpatient is appropriate. (5) Chronic anemia: Code(s): D64.9 - Anemia, unspecified Status: Chronic Assessment and Plan: Further workup as per primary care service. (6) Cholelithiasis: Code(s): K80.20 - Calculus of gallbladder without cholecystitis without obstruction Status: Acute Assessment and Plan: Would recommend recovery from pneumonia then consider laparoscopic cholecystectomy with intraoperative cholangiogram possible open cholecystectomy and at the same time search for the mesenteric masses and perhaps excise 1 for pathologic evaluation. (7) Renal mass, right: Code(s): N28.89 - Other specified disorders of kidney and ureter Status: Acute Assessment and Plan: Needs further workup as an outpatient at Dr. Ortiz's discretion. Radiologist recommends CT scan with and without contrast to evaluate this. Subjective Subjective Date/Time Seen: 05/05/20 08:03 Patient laying in bed when I entered the room today. Denies abdominal pain. Denies nausea. States he is hungry. Nurse reports he had 3 bowel movements overnight. No other specific complaints. No abdominal pain when I am not pushing on his abdomen. Review of Systems Constitutio
[2020-05-05] MEDS: traZODone HCL 50 MG TABLET PO (21:46)
[2020-05-05 22:00] VITALS: BP 151/84; PULSE 65; RESP 18; TEMP 36.7; O2SAT 95
[2020-05-06] MEDS: DEXTROSE 5%/LACTATED RINGERS 1,000 ML 100 ML IV CONT (04:44)
[2020-05-06 06:00] VITALS: BP 146/77; PULSE 65; RESP 18; TEMP 36.4; O2SAT 96
[2020-05-06] MEDS: PANTOPRAZOLE SODIUM IV 40 MG VIAL IV PUSH (08:28)
[2020-05-06 11:06] VITALS: O2SAT 94
--- NOTE | 2020-05-06 12:07 | PM.DS ---
DS: Admitting Diagnosis Admitting Diagnosis Admitting Diagnosis: (1) Bowel obstruction: (2) Constipation, acute: (3) Abnormal CT of the abdomen: (4) Chronic anemia: (5) GERD (gastroesophageal reflux disease): (6) HLD (hyperlipidemia): (7) Parkinsons disease: DS: Discharge Diagnosis Discharge Diagnosis (1) Parkinsons disease: Onset Date: Unknown Code(s): G20 - Parkinson's disease Status: Chronic Assessment and Plan: continue carbidopa levodopa (2) Constipation, acute: Onset Date: Unknown Code(s): K59.00 - Constipation, unspecified Status: Acute Assessment and Plan: resolved (3) Abnormal CT of the abdomen: Onset Date: ~05/03/20 Code(s): R93.5 - Abnormal findings on diagnostic imaging of other abdominal regions, including retroperitoneum Status: Acute Assessment and Plan: significant for a small-bowel obstruction (4) CVA (cerebral vascular accident): Code(s): I63.9 - Cerebral infarction, unspecified Status: Acute Assessment and Plan: chronic (5) Pneumonia: Code(s): J18.9 - Pneumonia, unspecified organism Status: Acute Assessment and Plan: patient treated with ceftriaxone and Zithromax (6) Calcified mesenteric mass: Code(s): K66.8 - Other specified disorders of peritoneum Status: Acute Assessment and Plan: follow-up in outpatient setting (7) GERD (gastroesophageal reflux disease): Qualifiers: Esophagitis presence: esophagitis presence not specified Qualified Code(s): K21.9 - Gastro-esophageal reflux disease without esophagitis Code(s): K21.9 - Gastro-esophageal reflux disease without esophagitis Status: Chronic Assessment and Plan: PPI as needed (8) Osteoporosis: Code(s): M81.0 - Age-related osteoporosis without current pathological fracture Status: Acute Assessment and Plan: consider biphosphonate DS: Summary Hospital Course Reason for hospitalization: SBO Hospital Course: this is a 75-year-old male with past medical history significant for Parkinson's disease recurrent small-bowel obstruction intra-abdominal mass patient was admitted through emergency room after he was unable to pass is to a CT of abdomen or pelvis was significant for high degree a small-bowel obstruction patient was placed in general medical floor NPO NG tube in hook tender to low intermittent suction a surgical consult was placed patient was able to be treated medically he overcame the obstruction on with supportive care IV fluids he was started on a clear liquid which was advanced as needed and he tolerated it well he was discharged home consult: Surgery procedures: No procedures Time Spent with Patient Time attestation: Total time spent providing and/or coordinating discharge services: Exam Const: General: comfortable, no acute distress, well developed, alert and awake Nutritional Appearance: average body habitus Orientation/consciousness: patient oriented x3 HENMT: Head: normal to inspection, normocephalic and atraumatic Ears: hearing grossly normal bilaterally Face and sinus: normal facial exam Eyes: General: appearance normal, both eyes and all related structures Pupils: Equal, round and reactive pupils present EOM: EOMs intact bilaterally Neck: Neck: full ROM, no lymphadenopathy and no JVD Thyroid: thyroid normal Lymphatic: no lymphadenopathy noted Resp: Effort & Inspection: normal respiratory effort and able to speak in complete sentences Auscultation: clear to auscultation bilaterally Cardio: Jugular venous distension: no JVD Rate: regular rate Rhythm: regular rhythm Heart sounds: S1 normal heart sound present and S2 normal heart sound present GI: GI Palp: Yes Soft to palpation and Yes No hepatosplenomegaly present : General: Yes deferred Skin: Rashes: no rashes Wo
== END 2020-05-06 13:13 | disposition home or self-care (01) | DRG 388 ==
LOC: ANHED 05-04 01:51 → ANH3MEDSUR 05-06 12:07
PROVIDERS: Emergency Medicine; Surgery; Admitting Provider Family Medicine; Emergency Provider Emergency Medicine; PCP Family Medicine Adolescent Medicine; Visit Provider Internal Medicine
DX: K56.609 Unspecified intestinal obstruction, unspecified as to partial versus complete obstruction (principal); J18.9 Pneumonia, unspecified organism; K59.00 Constipation, unspecified; G20 Parkinson's disease; Z20.822 Contact with and (suspected) exposure to COVID-19; K66.8 Other specified disorders of peritoneum; D64.9 Anemia, unspecified; K80.20 Calculus of gallbladder without cholecystitis without obstruction; N28.89 Other specified disorders of kidney and ureter; E78.5 Hyperlipidemia, unspecified; K21.9 Gastro-esophageal reflux disease without esophagitis; M81.0 Age-related osteoporosis without current pathological fracture; Z85.46 Personal history of malignant neoplasm of prostate; Z85.828 Personal history of other malignant neoplasm of skin; Z86.73 Personal history of transient ischemic attack (TIA), and cerebral infarction without residual deficits
CPT/HCPCS: 36415; 71045; 74018; 74019; 74177; 80048; 80053; 81001; 83605; 83690; 83735; 85025; 93005; 96361; 96374; 99285; A9270; C9113; C9803; J0456; J0696; J1170; J2405; J7030; J7120; J7121; Q9967; U0003; U0005

== ENCOUNTER 2020-10-31 11:00 | Outpatient (RCR) | payer MEDICARE, SELFPAY ==
--- NOTE | 2020-09-26 15:16 | LSVTBIG ---
PHYSICAL THERAPY EVALUATION FOR LSVT BIG PROGRAM Thank you for referring All Bernabe to [facility].? The patient is scheduled to be seen for therapy? 2x/week for 4 weeks. Please review, sign, date and return this plan of care NICHO. I agree with and certify that the following plan of care is medically necessary. Referring Physician Date Admitting Provider: Attending Provider: Wanda Martin, SEPARATOR TENDER Therapy Discipline Physical Therapy Evaluation Outpatient Past Medical History Neurological History Hx Cerebrovascular Accident (CVA) Yes Hx Parkinson's Disease Yes Cardiovascular History Hx Hypercholesterolemia Yes Respiratory History Hx Respiratory Disorders No Significant History Gastrointestinal History Hx Gastrointestinal Disorders No Significant History Genitourinary History Hx Kidney Stones Yes Musculoskeletal History Hx Musculoskeletal Disorders No Significant History Hematological History Hx Hematological Disorders No Significant History Endocrine History Hx Endocrine Disorders No Significant History HEENT History Hx Other HEENT Disorders Yes: Left eye droop Integumentary History Hx Skin Disorders No Significant History Reproductive History Hx Reproductive Disorders No Significant History Psychosocial History Hx Psychiatric Disorders No Significant History Pain History Has Past Pain Affected Your Daily Life Yes Anesthesia History Hx Other Anesthesia Reactions Yes: potential problem d/t parkinson's disease Other History Hx Cancer Yes: Prostate Evaluation Information Problem Diagnosis parkinson's disease Subjective Information States that over the last year Query Text:As Reported By Patient/ (COVID) he has experienced a Family decline in function and mobility. They have been trying to do what they can including cleaning out a garage and painting outside steps. However, he can no longer use a walker. He is freezing when trying to walk very short distances in the home and he dives to reach down for chairs instead of walking up to the chair. He is also experiencing decreased strength in LE and UE. We discussed is he has any dementia symptoms with his parkinson's. reports that he has some forgetfulness and we identified some
--- NOTE | 2020-09-26 16:47 | LSVTLOUD ---
SPEECH THERAPY INITIAL EVALUATION: Thank you for referring All Bernabe to [facility].? The patient is scheduled to be seen for therapy?4x/week for 4 weeks. Please review, sign, date and return this plan of care NICHO. I agree with and certify that the following plan of care is medically necessary. 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 Musculoskeletal History Hx Fractures Yes: 2 fractures in lower back long time ago from falls Hematological History Hx Hematological Disorders No Significant History Endocrine History Hx Endocrine Disorders No Significant History HEENT History Hx Other HEENT Disorders Yes: Left eye droop Reproductive History Hx Reproductive Disorders No Significant History Psychosocial History Hx Depression Yes: on meds Pain History Has Past Pain Affected Your Daily Life Yes Anesthesia History Hx Other Anesthesia Reactions Yes: potential problem d/t Parkinson's disease Other History Hx Cancer Yes: Prostate Evaluation Information Problem Diagnosis Parkinson disease Additional Evaluation Detail Talking has gone way down ; he even has started gesturing instead of talking . Pt's spouse reports being at home during COVID caused a lot of regression. Prior Level of Function Home Setting Home Type House Living Situation With Spouse Support Available Local Family Support Cargiver Responsibilities Comment Pt's spouse reports she doing a lot for him. Prior Swallow Level Prior Intake Method Oral Prior Diet Regular (Level 7 Diet) Prior Liquid Consistency Thin (Level 0 Diet) Prior Cognition/Communication Prior Communication Level Mild Impairment,Communication Prior Cognitive Function Memory Impaired Prior Ability to Handle Finances Assistance, Family LSVT LOUD Evaluation Medical Information Diagnosis/Stage Parkinson's Disease - per
--- NOTE | 2020-10-02 11:38 | LSVTBIG ---
OCCUPATIONAL THERAPY INITIAL EVALUATION REPORT 10/02/2020 Thank you for referring [facility] to [facility].? The patient is scheduled to be seen for therapy? 2x/week for 4 weeks (due to scheduling, LSVT to begin week of 10/16). Please review, sign, date and return this plan of care NICHO. I agree with and certify that the following plan of care is medically necessary. Referring Physician Date Referring Provider: Wanda Martin, UM NURSE *LSVT BIG Evaluation Start: 09/26/20 09:54 Freq: Status: Active Protocol: Document 10/02/20 10:35 ALEXANDRA (Rec: 10/02/20 11:38 ALEXANDRA [email or web address]) Therapy Discipline Therapy Discipline Therapy Discipline Occupational Therapy Therapy Assessment Status Assessment Status Assessment Status Evaluation Outpatient Past Medical History Past Medical History Source of Past Medical History Recalled from Previous Visit, Confirmed with Patient/Family Neurological History Hx Cerebrovascular Accident (CVA) Yes Hx Parkinson's Disease Yes Cardiovascular History Hx Hypercholesterolemia Yes Respiratory History Hx Respiratory Disorders No Significant History Gastrointestinal History Hx Gastrointestinal Disorders No Significant History Genitourinary History Hx Kidney Stones Yes Musculoskeletal History Hx Musculoskeletal Disorders No Significant History Hematological History Hx Hematological Disorders No Significant History Endocrine History Hx Endocrine Disorders No Significant History HEENT History Hx Other HEENT Disorders Yes: Left eye droop Integumentary History Hx Skin Disorders No Significant History Reproductive History Hx Reproductive Disorders No Significant History Psychosocial History Hx Psychiatric Disorders No Significant History Pain History Has Past Pain Affected Your Daily Life Yes Anesthesia History Hx Other Anesthesia Reactions Yes: potential problem d/t parkinson's disease Other History Hx Cancer Yes: Prostate Evaluation Information Problem Diagnosis Parkinson's Disease Subjective Information States that over the last year Query Text:As Reported By Patient/ (COVID) he has experienced a Family decline in function, mobility, and general activity levels. They have been trying to do what they can including cleaning out a garage and painting outside steps. However, he can no longer use a walker - is using a motorized scooter in the home. He is freezing when trying to
--- NOTE | 2020-10-23 10:26 | PCPTNOTE ---
Patient called & cancelled scheduled appointment this date due to not feeling well.
--- NOTE | 2020-11-01 10:04 | PCPTNOTE ---
Patient's called & cancelled scheduled appointment this date due to taking to the ED.
--- NOTE | 2020-11-07 07:30 | PCOTNOTE ---
Patient's called and cancelled remaining appointments due to All being admitted to the hospital.
--- NOTE | 2020-11-07 07:36 | PCPTNOTE ---
Patient called & cancelled scheduled appointments this week due to hospitalization.
--- NOTE | 2020-11-22 14:51 | PCSTNOTE ---
Speech Therapy Discharge: Attending Provider: Wanad Martin, MEDICAL ASSISTANT Patient:All Bernabe Date of :1945 All was seen for 10 [facility] treatment sessions before becoming ill with a bowel obstruction. Upon speaking to/following up with patient's spouse, it was learned he is requiring surgery for which he has not yet been scheduled. She conveyed All wishes to return for the [facility] and [facility] programs again after his surgery and medical issues have resolved. At this time, he will be discharged. The goals have been partially met. Thank you for referring this patient to [facility]. Please review, sign, date and return this discharge summary NICHO. I have been updated about the patient's current status and I agree with discharge from the above service at this time. Referring Physician Date
--- NOTE | 2020-11-23 14:00 | PCOTNOTE ---
OCCUPATIONAL THERAPY DISCHARGE NOTIFICATION 11/23/20 Patient:All Bernabe Date of :1945 All was seen for 7 [facility] OT treatment sessions before becoming ill with a bowel obstruction. Upon speaking to/following up with patient's spouse, it was learned he is requiring surgery for which he has not yet been scheduled. She conveyed All wishes to return for the [facility] and [facility] programs again after his surgery and medical issues have resolved. At this time, he will be discharged. The goals have been partially met. Thank you for referring this patient to [facility]. Please review, sign, date and return this discharge summary NICHO. I have been updated about the patient's current status and I agree with discharge from the above service at this time. Referring Physician Date Referring Provider: Wanda Martin, INSTRUMENT CALIBRATOR
--- NOTE | 2020-11-23 14:12 | PCPTNOTE ---
PHYSICAL THERAPY DISCHARGE NOTIFICATION 11/23/20 Patient:All Bernabe Date of :1945 All was seen for 7 [facility] PT treatment sessions before becoming ill with a bowel obstruction. Upon speaking to/following up with patient's spouse, it was learned he is requiring surgery for which he has not yet been scheduled. She conveyed All wishes to return for the [facility] and [facility] programs again after his surgery and medical issues have resolved. At this time, he will be discharged. The goals have been partially met. Thank you for referring this patient to [facility]. Please review, sign, date and return this discharge summary NICHO. I have been updated about the patient's current status and I agree with discharge from the above service at this time. Referring Physician Date Referring Provider: Wanda Martin, ASSOCIATE PROFESSOR OF MEDICINE
== END 2020-11-23 15:07 | disposition home or self-care (01) ==
LOC: ANHST 11:00
PROVIDERS: PCP Family Medicine Adolescent Medicine; Visit Provider Nurse Practitioner Gerontology
DX: G20 Parkinson's disease (principal); R47.89 Other speech disturbances
CPT/HCPCS: 92507; 92524; 97110; 97163; 97167

== ENCOUNTER 2020-11-05 11:51 | Inpatient (IN) | payer MEDICARE, SELFPAY ==
--- NOTE | ~2020-11-05 | XR_ITS ---
EXAMINATION: XR abdomen obstructive series DATE: 11/07/2020 08:34 INDICATION: Small bowel obstruction. TECHNIQUE: Upright and supine views of the abdomen were obtained. COMPARISON: CT abdomen and pelvis 11/05/2020 FINDINGS: There are multiple dilated loops of small bowel. The colon is decompressed. The nasogastric tube tip is in the stomach. No free intraperitoneal gas. There are changes of vertebroplasty at 2 le vels. There are surgical clips in the pelvis. IMPRESSION: 1. Persistently dilated small bowel, consistent with small bowel obstruction. Reviewed, dictated and finalized at location A.
--- NOTE | ~2020-11-05 | XR_ITS ---
EXAMINATION: XR abdomen obstructive series DATE: 11/05/2020 12:56 INDICATION: Bloating and generalized abdominal pain TECHNIQUE: Frontal supine and upright views of the abdomen were obtained. COMPARISON: None. FINDINGS: There are couple dilated loops of likely obstructed small bowel in the mid abdomen which measure up t o 8.5 cm in maximal diameter although this is likely exaggerated by parallax. Moderate amount of stoo l is seen throughout the nondilated colon. No pneumatosis or free intraperitoneal gas. Bibasilar opac ities which could represent atelectasis, mild pulmonary edema or pneumonia. Postoperative changes in the pelvis. Chronic L1 and L2 burst fractures with change of prior vertebroplasty. IMPRESSION: 1. Small bowel obstruction. 2. Bibasilar opacities which could represent atelectasis, mild pulmonary edema or pneumonia. Reviewed, dictated and finalized at location A.
--- NOTE | ~2020-11-05 | CT_ITS ---
EXAMINATION: CT abdomen pelvis w con DATE: 11/05/2020 13:40 INDICATION: Abdominal distention TECHNIQUE: Computed tomography (CT) of the abdomen and pelvis was performed with 100 mL Omnipaque-350 intravenous contrast. Automated exposure control and iterative reconstruction technique were employe d. The dose-length product was 515.60 mGy-cm. COMPARISON: 05/04/2020 and MRI dated 01/22/2019 FINDINGS: Patchy groundglass opacities in the visualized portions of the bilateral lower lobes, the lingula and most prominently in the right middle lobe which has progressed in the right lower lobe since the jacey or study. Heart size is normal. Atherosclerotic coronary artery calcific location. No pericardial or pleural effusion. There multiple low-attenuation hepatic lesions, the majority including the largest measuring up to 1.9 cm with fluid attenuation and smooth margins consistent with hepatic cysts. There is an additional less well-defined approximately 1 cm lesion at the dome of the liver with periphera l small enhancing component more likely to represent a hemangioma is also supported by imaging findin gs on prior MRI. Gallbladder, spleen, pancreas and bilateral adrenal glands are normal. No significan t interval change in multiple bilateral renal cysts the largest exophytic cyst at the lower pole of t he left kidney with single thin internal septation measuring 9.8 cm. A few of the cysts are hyperdens e but without contrast enhancement on the prior MRI consistent with complex proteinaceous/hemorrhagic cyst. Multiple dilated loops of small bowel measuring up to 7 cm with abrupt transition point at at the par aspinal right mid abdomen at identical point as on the prior study consistent with recurrent obstruct ion. There is prominent enhancement of the bowel wall which appears mildly thickened at the site of t he transition point which could represent the same process as a slowly growing cluster of nodules at the root of mesentery, the largest a 3.3 x 1.8 cm mixed solid, cystic and calcified mass suspicious f or carcinoid. The more distal small bowel is decompressed to the ileocecal valve. No interval change in a 7 x 3 x 3.2 cm lipoma in the ascending colon. There are some residual oral contrast material in the mid to distal colon. Partially decompressed bladder is unremarkable. No free intraperitoneal gas or fluid. Surgical clips in the pelvis consistent with prior pelvic lymph node dissections. Several c hronic compression and burst fractures in the lumbar and lower thoracic spine, most severe with adkins e of prior vertebroplasty at L1 and L2. 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 Benign bone islands at T11 and at the left ischial tuberosity. IMPRESSION: 1. Recurrent small bowel obstruction with transition point in the right abdomen wall thickening and i ncreased enhancement raising concern for carcinoid tumor. 2. Minimal change in a previous noted slowly growing cluster of masses with calcific lesion at the ce ntral mesentery suspicious for carcinoid tumor with differential including sclerosing mesenteritis, s equela of old granulomatous disease or treated metastatic disease in the appropriate clinical setting . 3. Some interval progression in extensive chronic ground grass predominant lung disease in the bilate ral lower lobes suspicious for chronic interstitial lung disease in either nonspecific interstitial p neumonia (NSIP) or desquamative interstitial pneumonia (DIP) pattern. Differential would include COVI D pneumonia however lung disease appears to have been present. This significantly less degree on stud y dated 01/21/2019 Reviewed, dictated and finalized at location A. IMPRESSION: 1. Recurrent small bowel obstruction with transition point in the right abdomen wall thickening and increased
--- NOTE | ~2020-11-05 | XR_ITS ---
EXAMINATION: XR abdomen NG/feed tube insert DATE: 11/05/2020 15:28 INDICATION: Nasogastric tube placement. TECHNIQUE: An upright view of the abdomen was obtained. COMPARISON: CT abdomen and pelvis 11/05/2020 FINDINGS: The lower abdomen and right side of the abdomen are excluded. There are multiple dilated lo ops of small bowel. The colon is normal in caliber. The nasogastric tube tip is in the stomach. There are changes of vertebroplasty in L1 and L2. The lung volumes are small. There are chronic airspace o pacities in the mid and lower lung zones with a lower lung predominance. IMPRESSION: 1. Nasogastric tube tip in the stomach. 2. Small bowel obstruction. 3. Chronic interstitial lung disease. Reviewed, dictated and finalized at location A.
--- NOTE | ~2020-11-05 | XR_ITS ---
EXAMINATION: XR sm bowel follow through DATE: 11/07/2020 12:16 INDICATION: Small bowel obstruction. TECHNIQUE: Oral contrast was administered, and a time course of radiographs of the abdomen was obtain ed. Fluoroscopy of the small bowel was not performed. Fluoroscopy exposure time was 0 minutes. The to lilia number of images was 9. COMPARISON: CT abdomen and pelvis 11/05/2020, 05/04/2020, 01/21/2019 FINDINGS: The nasogastric tube tip is in the stomach. The jejunum and proximal ileum are normal in caliber. The re are multiple markedly dilated loops of ileum. Transit time from the stomach to proximal colon was approximately 2 hours. There are surgical clips in the pelvis. There are changes of vertebroplasty at 2 levels. IMPRESSION: 1. Chronically dilated loops of ileum, consistent with partial small bowel obstruction versus adynami c ileus. Reviewed, dictated and finalized at location A. IMPRESSION: 1. Chronically dilated loops of ileum, consistent with partial small bowel obst ruction versus adynamic ileus.
[2020-11-05 11:52] VITALS: BP 120/80; PULSE 90; RESP 18; TEMP 36.8; O2SAT 98
--- NOTE | 2020-11-05 12:21 | PC.NURSE ---
URINAL GIVEN TO PT. PT STATES UNABLE TO GO AT THIS TIME. WILL CONTINUE TO MONITOR
[2020-11-05 12:23] LABS: Basophils Percent Auto 0.2 % (0.2-1.2); Eosinophils Absolute Auto 0.1 K/mm3 (0-0.3); Eosinophils Percent Auto 1.7 % (0-4.4); Hematocrit 37.9 % (42.0-52.0); Hemoglobin 12.6 g/dL (14.0-18.0); Immature Granulocyte Absolute 0.04 K/mm3 (0.00-0.031); Immature Granulocyte Percent A 0.5 % (0-0.5); Lymphocytes Absolute Auto 1.88 K/mm3 (0.9-3.2); Lymphocytes Percent Auto 23.3 % (18.3-44.2); Mean Corpuscular HGB Conc 33.2 g/dl (32-36); Mean Corpuscular Hemoglobin 32.3 pg (26-34); Mean Corpuscular Volume 97.2 fl (80-100); Mean Platelet Volume 9.5 fl (7.4-10.4); Monocytes Absolute Auto 0.7 K/mm3 (0.1-0.6); Neutrophils Absolute Auto 5.3 K/mm3 (1.3-6.7); Neutrophils Percent Auto 65.3 % (45.5-73.1); Platelet Count Result 262 k/mm3 (150-375); Red Cell Distribution Width 13.2 % (11.5-14.5); White Blood Count 8.1 K/mm3 (4.5-10.0)
--- NOTE | 2020-11-05 12:32 | ED.GENADULT ---
HPI - General Adult General Chief complaint: Abdominal Pain Stated complaint: blocked bowels Time Seen by Provider: 11/05/20 12:12 Source: family, RN notes reviewed and old records reviewed Mode of arrival: wheelchair Limitations: dementia History of Present Illness HPI narrative: This is 75 year old male with history of Parkinson's, recurrent bowel obstructions, constipation who presents with his concerned about a bowel obstruction. She states her has tumor on his mesentery and he frequently gets blocked bowel after eating certain foods. He was discharged from [facility] [place] 2 days ago after a hospitalization for a bowel obstruction. She reports patient had NGT placed for a few days and he was able to have bowel movement. She states during that hospitalization he was evaluated by a surgeon and he was told that patient stool had some stool blocking but he was discharged. She thinks patient has another obstruction because patient has not had a bowel movement in 2 days. Patient has been passing flatus. She has given patient magnesium citrate x 2 and mineral oil without a bowel movement. She reports she also did not feel any stool in his rectum. Patient denies abdominal pain, nausea or vomiting. She reports patient is slightly bloated. Related Data Home Medications Medication Instructions Recorded Confirmed carbidopa-levodopa [Sinemet] 3 tablet PO QID@,,,01/21/19 11/05/20 pramipexole [Mirapex] 0.5 mg PO QID@07,,,01/21/19 11/05/20 aspirin 81 mg PO DAILY 10/05/20 11/05/20 escitalopram oxalate [Lexapro] 20 mg PO DAILY 10/05/20 11/05/20 magnesium hydroxide [Milk of 60 ml PO DAILY 10/05/20 11/05/20 Magnesia] mineral oil 60 ml PO DAILY 10/05/20 11/05/20 pantoprazole 40 mg PO HS PRN 10/05/20 11/05/20 trazodone 50 mg PO HS 10/05/20 11/05/20 Allergies Allergy/AdvReac Type Severity Reaction Status Date / Time No Known Allergies Allergy Verified 05/03/20 23:37 Review of Systems Review of Systems: All systems reviewed & are unremarkable except as noted in HPI and below PMFSH Past Medical History Medical History (Updated 11/06/20 @ 00:23 by Leeanna Nicole MD) Abnormal CT of the abdomen (~05/03/20) 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 Cerebrovascular accident Mild right-sided deficits, mainly in the leg. Chronic interstitial lung disease Noted on imaging though patient is asymptomatic he reports multiple occupational exposures. 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 Esophageal stricture Status post dilatation. Gastroesophageal reflux disease Hyperlipidemia Hypertension Kidney stone Osteoporosis Parkinsons disease Parkinsons disease Pelvis fracture Prostate cancer Status post open prostatectomy. Skin cancer Surgical History Surgical History (Updated 11/05/20 @ 21:56 by Tierra Beard PA-C) History of eye surgery History of prostatectomy History of tonsillectomy Family History Family History Sibling Breast cancer Mother Heart disease Social History Social History (Updated 11/05/20 @ 21:57 by Tierra Beard PA-C) Social History: Surrogate decision maker: Marni Bernabe, . Code status: Full code. Smoking status: Never smoker Alcohol intake: never Substance use: never Additional living arrangements comments: The patient lives with his in [place]. Additional occupation/education comments: Retired. Exam Const: General: alert Orientation/consciousness: patient oriented x3 Eyes: EOM: EOMs intact bilaterally Resp: Effort & Inspection: normal respiratory effort and no retractions Auscultation: clear to auscultation bilaterally Cardio: Rate: regul
[2020-11-05 12:33] LABS: Alanine Aminotransferase 9 U/L (4-50); Alkaline Phosphatase 112 U/L (38-126); Anion Gap 6 mmol/L (8-16); Aspartate Amino Transferase 57 U/L (17-59); Bilirubin,Total 0.6 mg/dL (0.2-1.3); Blood Urea Nitrogen 16 mg/dL (9-20); Calcium 9.2 mg/dL (8.4-10.2); Carbon Dioxide 31 mmol/L (22-30); Chloride 102 mmol/L (98-107); Estimated CRCL calculation 68 ml/min; Estimated Glomerular Filt Rate > 60; Glucose 108 mg/dL (65-110); Lipase 96 U/L (23-300); Potassium 3.3 mmol/L (3.4-5.0); Sodium 139 mmol/L (137-145)
[2020-11-05 15:09] LABS: EDCOVIDSCREEN Negative (Negative)
[2020-11-05 15:20] LABS: Add Urine Microscopic? YES; Appearance Urine Cloudy (Clear); Bacteria Urine Trace /hpf; Bilirubin Urine Negative (Negative); Blood Urine 1+ (Negative); Color Urine Yellow (Yellow); Glucose Urine UA Negative (Negative); Ketones Urine Trace mg/dL (Negative); Leukocyte Esterase Ur Negative LEU/UL (Negative); Mucus Urine Heavy /lpf; Nitrate Urine Negative (Negative); Protein Urine 2+ mg/dL (Negative); RBC Urine 21-50 /hpf (0-2); Specific Grav Ur 1.042 (1.001-1.035); Squamous Epithelial Cell Urine Rare /hpf (Few); Urobilinogen Urine Negative mg/dL (<2.0); WBC Urine 0-3 /hpf
[2020-11-05 15:35] VITALS: BP 132/94; PULSE 76; RESP 20; O2SAT 98
[2020-11-05 16:27] VITALS: BP 129/85; PULSE 79; RESP 20; O2SAT 96
--- NOTE | 2020-11-05 17:00 | PM.IMHP ---
H&P: HPI History of Present Illness Date/Time: 11/05/20 17:00 Chief Complaint: Suspected bowel obstruction. Narrative: This is a pleasant 75-year-old male with history of stroke, Parkinson's, prostate cancer, small-bowel obstructions, and mesenteric mass noted on imaging as far back as 2013 who presented to the emergency department earlier today via private vehicle from home with concerns for possible bowel obstruction. The patient is able to provide a fair history however his speech is slow and soft and at times difficult to understand and as such some of the following is obtained through discussions with his as well. The patient has had multiple bowel obstructions over the years which have resolved with conservative treatment, the most recent being just several days ago for which she was hospitalized at [facility]. On day of discharge 2 days ago he had several loose stools however he has not had any bowel movement since that time despite taking laxatives and mineral oil. decided to bring him in for evaluation as this typically happens when he ?has blocked bowels.? He typically eats a mechanical soft diet at home and according to the he has not had issues with obstructions when eating soft foods however he had a [employer] hamburger recently and she thinks that is what may have set this off. The patient himself has no specific complaints and denies overt abdominal pain, distension, nausea, and vomiting. With regards to the mesenteric mass, imaging is concerning for carcinoid tumor. Over the years they have been evaluated by several surgeons and specialists who felt that he would be at too high of a risk for surgery. Review of Systems Review of Systems: Twelve systems were reviewed with pertinent positives and negatives as per HPI. No fever, chills, or sweats. No sinus congestion, rhinorrhea, otalgia, or odynophagia. He denies cough and shortness of breath. Imaging over the years has shown findings consistent with possible chronic interstitial lung disease though he has never had that evaluated he has no symptoms of such. He does endorse environmental exposure through previous jobs, however. No chest pain or pleuritic pain. Except as documented, all other systems were reviewed and are negative. [facility] Past Medical History Medical History (Updated 11/05/20 @ 22:05 by Tierra Beard PA-C) Abnormal CT of the abdomen (~05/03/20) 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 Cerebrovascular accident Mild right-sided deficits, mainly in the leg. Chronic interstitial lung disease Noted on imaging though patient is asymptomatic he reports multiple occupational exposures. 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 Esophageal stricture Status post dilatation. Gastroesophageal reflux disease Hyperlipidemia Hypertension Kidney stone Osteoporosis Parkinsons disease Parkinsons disease Pelvis fracture Prostate cancer Status post open prostatectomy. Skin cancer Surgical History Surgical History (Updated 11/05/20 @ 21:56 by Tierra Beard PA-C) History of eye surgery History of prostatectomy History of tonsillectomy Family History Family History Sibling Breast cancer Mother Heart disease Social History Social History (Updated 11/05/20 @ 21:57 by Tierra Beard PA-C) Social History: Surrogate decision maker: Marni Bernabe, . Code status: Full code. Smoking status: Never smoker Alcohol intake: never Substance use: never Additional living arrangements comments: The patient lives with his in [place]. Additional occupation/education comments: Retired. Meds Home Medications and Allergies Home Medications M
[2020-11-05 17:30] VITALS: BP 129/85; PULSE 78; RESP 20; O2SAT 99
[2020-11-05 17:59] VITALS: BP 127/85; PULSE 80; RESP 18; TEMP 37.1; O2SAT 96
[2020-11-05] MEDS: SODIUM CHLORIDE 0.9% IV 1,000 ML 125 ML IV CONT (17:59)
[2020-11-05 18:14] VITALS: BMI 24.0
[2020-11-05] MEDS: CARBIDOPA/LEVODOPA 25/100 MG TABLET 3 TABLET PO (21:59)
[2020-11-05 22:00] VITALS: BP 153/91; PULSE 68; RESP 18; TEMP 37; O2SAT 97
[2020-11-05] MEDS: PRAMIPEXOLE 0.5 MG TABLET PO (22:00)
[2020-11-06] MEDS: SODIUM CHLORIDE 0.9% IV 1,000 ML 125 ML IV CONT (04:39)
[2020-11-06 06:00] VITALS: BP 152/95; PULSE 61; RESP 18; TEMP 37.1; O2SAT 96
[2020-11-06] MEDS: PRAMIPEXOLE 0.5 MG TABLET PO ×4 (06:05→19:01)
[2020-11-06] MEDS: CARBIDOPA/LEVODOPA 25/100 MG TABLET 3 TABLET PO ×4 (06:05→19:01)
[2020-11-06 06:09] LABS: Basophils Percent Auto 0.4 % (0.2-1.2); Eosinophils Absolute Auto 0.2 K/mm3 (0-0.3); Eosinophils Percent Auto 2.7 % (0-4.4); Hematocrit 37.1 % (42.0-52.0); Immature Granulocyte Absolute 0.01 K/mm3 (0.00-0.031); Immature Granulocyte Percent A 0.2 % (0-0.5); Lymphocytes Absolute Auto 1.63 K/mm3 (0.9-3.2); Lymphocytes Percent Auto 29.3 % (18.3-44.2); Mean Corpuscular HGB Conc 32.3 g/dl (32-36); Mean Corpuscular Hemoglobin 31.8 pg (26-34); Mean Corpuscular Volume 98.4 fl (80-100); Mean Platelet Volume 9.7 fl (7.4-10.4); Monocytes Absolute Auto 0.5 K/mm3 (0.1-0.6); Monocytes Percent Auto 8.6 % (2.6-8.5); Neutrophils Absolute Auto 3.3 K/mm3 (1.3-6.7); Neutrophils Percent Auto 58.8 % (45.5-73.1); Platelet Count Result 251 k/mm3 (150-375); Red Blood Count 3.77 M/mm3 (4.6-6.20); Red Cell Distribution Width 13.1 % (11.5-14.5); White Blood Count 5.6 K/mm3 (4.5-10.0)
[2020-11-06 06:50] LABS: Alanine Aminotransferase 8 U/L (4-50); Albumin Level 3.3 g/dL (3.5-5.1); Alkaline Phosphatase 98 U/L (38-126); Anion Gap 4 mmol/L (8-16); Aspartate Amino Transferase 42 U/L (17-59); Bilirubin,Total 0.7 mg/dL (0.2-1.3); Blood Urea Nitrogen 13 mg/dL (9-20); Calcium 8.5 mg/dL (8.4-10.2); Carbon Dioxide 27 mmol/L (22-30); Chloride 107 mmol/L (98-107); Estimated CRCL calculation 76 ml/min; Estimated Glomerular Filt Rate > 60; Glucose 81 mg/dL (65-110); Magnesium 2.1 mg/dL (1.6-2.3); Potassium 3.6 mmol/L (3.4-5.0); Sodium 138 mmol/L (137-145)
--- NOTE | 2020-11-06 09:11 | PM.IMPN ---
Progress Note: A&P Assessment and Plan (1) Small bowel obstruction: Code(s): K56.609 - Unspecified intestinal obstruction, unspecified as to partial versus complete obstruction Status: Acute Assessment and Plan: Unfortunately this has been an ongoing issue with the patient and he was just hospitalized at another facility 2 days prior to presentation for same. Continue with NG decompression. NPO diet. Appreciate general surgery consultation. Continue with IV fluids while NPO; decrease rate to 75 ml/hr and monitor volume status closely. Analgesics and antiemetics available as needed. (2) Parkinsons disease: Code(s): G20 - Parkinson's disease Status: Chronic Assessment and Plan: The patient's was concerned about the patient receiving his carbidopa levodopa. given the fact that he is passing flatus, will continue with his Parkinson's medications and clamp NG tube for 30 minutes at time of administration. When he is tolerating orals, a swallow study would be prudent to rule out silent aspiration given lung findings on CT scan. (3) Chronic anemia: Code(s): D64.9 - Anemia, unspecified Status: Chronic Assessment and Plan: Hemoglobin and hematocrit are stable on review of previous labs. (4) Hypokalemia: Code(s): E87.6 - Hypokalemia Status: Acute Assessment and Plan: Potassium 3.3 at presentation and has improved to 3.6 today with supplementation. Continue to monitor BMP. (5) Abnormal CT of the abdomen: Onset Date: ~05/03/20 Code(s): R93.5 - Abnormal findings on diagnostic imaging of other abdominal regions, including retroperitoneum Status: Acute Assessment and Plan: Minimal change in a slowly growing cluster of masses with calcific lesion at the central mesentery suspicious for carcinoid. As per HPI, the patient and his have met with several specialists and at this time they feel open biopsy is too risky and are comfortable with watchful waiting. (6) Chronic interstitial lung disease: Code(s): J84.9 - Interstitial pulmonary disease, unspecified Status: Acute Assessment and Plan: Findings on imaging suggest chronic interstitial lung disease and patient reported significant work and environmental exposures. He has no symptoms of cough or shortness of breath but may benefit from outpatient pulmonary referral. As above a swallow study would be appropriate when he is able to eat. Subjective Date/time seen: 11/06/20 09:11 Interval history: Date of service: 11/06/2020 All Bernabe is a 75-year-old male with history of Parkinson's disease, prostate cancer, hyperlipidemia, CVA, chronic interstitial lung disease, hypertension is seen in follow-up for recurrent SBO. He is feeling better today. He endorses abdominal soreness which he rates as 2/10. He feels his abdomen is softer today and denies distension. no abdominal cramping. He is passing flatus. He has not had a bowel movement. He is feeling hungry. He denies nausea or vomiting. No fevers or chills. Denies dysphagia. He denies shortness breath, cough, chest pain, or palpitations. No dizziness or lightheadedness. Has not been up bed yet today. 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 denies eye pain. No visual changes from left eye. At the patient's request, I have called his , Marni, to provide updates and answer questions. Review of Systems Review of Systems: All systems reviewed & are unremarkable except as noted in HPI and below Exam Narrative: Mr. Bernabe is a thin, well-appearing 75-year-old male who is lying supine in bed. He appears comfortable and is in NARD. Neuro: awake, alert and oriented x4, speech clear, no focal neuro deficits noted HEENMT: normocephalic, atraumatic. Right eye shut. He is able to open eye with his hands and has right eye exotropia, sclerae anicteric. Mo
--- NOTE | 2020-11-06 12:18 | PM.CNGS ---
Assessment and Plan Assessment and plan (1) Small bowel obstruction: Code(s): K56.609 - Unspecified intestinal obstruction, unspecified as to partial versus complete obstruction Status: Acute Assessment and Plan: I have reviewed the CT and discussed the findings with the patient. He continues to have recurrent small-bowel obstructions likely related to the same process. Unsure if this is adhesions, sclerosing mesenteritis, or possible carcinoid. Will try to get records from [facility] to see what was just done this past week. He may ultimately require surgical exploration within the next couple days, but will continue NG decompression at this time and monitor with serial abdominal exams. (2) Abnormal CT of the abdomen: Onset Date: ~05/03/20 Code(s): R93.5 - Abnormal findings on diagnostic imaging of other abdominal regions, including retroperitoneum Status: Acute (3) Parkinsons disease: Code(s): G20 - Parkinson's disease Status: Acute History of Present Illness Consult details Consult date: 11/06/20 Reason for consult: other (Small bowel obstruction) Requesting physician: Leeanna Nicole MD Narrative: This is a 75-year-old man who presented to the emergency department yesterday with abdominal pain and nausea. He was just hospitalized at [facility] and released on Friday. These records are not available for review at this time. He states that he was found to have a small-bowel obstruction and was treated there. He was improving and moving his bowels and was discharged Friday. His last bowel movement was Friday. He is still passing some flatus, but was feeling more distended and nauseated. He states that he ate a hamburger prior to all the symptoms happening, and he felt that this was dry and may have contributed to the obstruction. He last had of small-bowel obstruction about 1 year ago and was treated here at this hospital. He did not require surgery and the obstruction resolved with time. Does have a history of open prostatectomy. He denies any signs recurrence since the surgery. Review of Systems Review of Systems: All systems reviewed & are unremarkable except as noted in HPI and below Eyes: Eyes: Denies change in vision ENT: Denies hearing loss, Denies neck pain and Denies sore throat Cardiovascular: Cardiovascular: Denies chest pain and Denies dyspnea Respiratory: Respiratory: Denies cough, Denies dyspnea and Denies wheezing Gastrointestinal: Gastrointestinal: Reports as per HPI Genitourinary: Genitourinary: Denies hematuria and Denies dysuria Musculoskeletal: Musculoskeletal: Denies arthralgias, Denies joint swelling and Denies neck pain Allergic/Immunologic: Allergic/Immunologic: Denies wheezing [facility] Past Medical History Medical History Abnormal CT of the abdomen (~05/03/20) 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 Cerebrovascular accident Mild right-sided deficits, mainly in the leg. Chronic interstitial lung disease Noted on imaging though patient is asymptomatic he reports multiple occupational exposures. 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 Esophageal stricture Status post dilatation. Gastroesophageal reflux disease Hyperlipidemia Hypertension Kidney stone Osteoporosis Parkinsons disease Parkinsons disease Pelvis fracture Prostate cancer Status post open prostatectomy. Skin cancer Surgical History Surgical History History of eye surgery History of prostatectomy History of tonsillectomy Family History Family History Sibling Breast cancer Sancho
[2020-11-06] MEDS: SODIUM CHLORIDE 0.9% IV 1,000 ML 75 ML IV CONT (12:34)
[2020-11-06 14:00] VITALS: BP 134/90; PULSE 70; RESP 18; TEMP 36.6; O2SAT 94
[2020-11-06 17:46] VITALS: O2SAT 95
[2020-11-06 20:36] VITALS: BP 156/93; PULSE 72; RESP 17; TEMP 36.6; O2SAT 96
[2020-11-07] MEDS: SODIUM CHLORIDE 0.9% IV 1,000 ML 75 ML IV CONT ×2 (02:27→18:54)
[2020-11-07 03:57] VITALS: BP 167/92; PULSE 64; RESP 16; TEMP 36.4; O2SAT 95
[2020-11-07] MEDS: hydrALAZINE HCL 20 MG/ML VIAL 10 MG IV PUSH (05:03)
[2020-11-07 05:19] LABS: Hematocrit 36.6 % (42.0-52.0); Hemoglobin 12.1 g/dL (14.0-18.0)
[2020-11-07 06:15] VITALS: BP 150/86
[2020-11-07] MEDS: PRAMIPEXOLE 0.5 MG TABLET PO ×4 (06:43→18:54)
[2020-11-07] MEDS: CARBIDOPA/LEVODOPA 25/100 MG TABLET 3 TABLET PO ×4 (06:43→18:54)
[2020-11-07 07:06] LABS: Anion Gap 10 mmol/L (8-16); Blood Urea Nitrogen 14 mg/dL (9-20); Calcium 8.7 mg/dL (8.4-10.2); Carbon Dioxide 21 mmol/L (22-30); Chloride 104 mmol/L (98-107); Estimated CRCL calculation 76 ml/min; Estimated Glomerular Filt Rate > 60; Glucose 67 mg/dL (65-110); Potassium 3.7 mmol/L (3.4-5.0); Sodium 135 mmol/L (137-145)
--- NOTE | 2020-11-07 09:17 | PM.PNGS ---
Progress Note: A&P Assessment and Plan (1) Small bowel obstruction: Code(s): K56.609 - Unspecified intestinal obstruction, unspecified as to partial versus complete obstruction Status: Acute Assessment and Plan: Feeling better today but Xray still shows obstruction. Discussed options with patient and . would like to avoid surgery if possible, but also doesn't want him to keep having these same problems. Will get SBFT today. If obstruction is persisting, will likely need to proceed with exploratory laparotomy, possible bowel resection. (2) Abnormal CT of the abdomen: Onset Date: ~05/03/20 Code(s): R93.5 - Abnormal findings on diagnostic imaging of other abdominal regions, including retroperitoneum Status: Acute (3) Parkinsons disease: Code(s): G20 - Parkinson's disease Status: Acute Subjective Subjective Date/Time Seen: 11/07/20 09:17 Interval history: Patient feeling better and bowels moving. Exam GI: Inspection: non-distended GI Palp: Yes Soft to palpation, No Tenderness to palpation present (GI) and No Guarding due to palpation present (GI) Objective Data Vital Signs Vital Signs: Vital Signs - 24 hr 11/06/20 14:00 11/06/20 17:46 11/06/20 20:36 Temperature 36.6 C 36.6 C Pulse Rate 70 72 Respiratory Rate 18 17 Blood Pressure 134/90 156/93 H Pulse Oximetry 94 95 96 11/07/20 03:57 11/07/20 06:15 Temperature 36.4 C Pulse Rate 64 Respiratory Rate 16 Blood Pressure 167/92 H 150/86 H Pulse Oximetry 95 Intake/Output Intake/Output: Intake & Output 11/04/20 11/05/20 11/06/20 11/07/20 23:59 23:59 23:59 23:59 Intake Total 2260 1050 Output Total 2400 700 Balance -140 350 Meds/Results Medications: Active Medications Generic Name Dose Route Start Last Admin Trade Name Freq PRN Reason Stop Dose Admin Carbidopa/Levodopa 3 tablet 11/05/20 21:55 11/07/20 06:43 Carbidopa/Levodopa 25/100 Mg Tablet PO 3 tablet 0700,1100,1500,1900 ANIBAL Administration Sodium Chloride 1,000 mls @ 75 mls/hr 11/05/20 15:30 11/07/20 02:27 Normal Saline Iv IV CONT 75 mls/hr .[id number] ANIBAL Administration Ondansetron HCl 4 mg 11/05/20 15:29 Ondansetron Inj 4 Mg/2 Ml Vial IV PUSH Q4H PRN Nausea Pramipexole Dihydrochloride 0.5 mg 11/05/20 21:45 11/07/20 06:43 Pramipexole 0.5 Mg Tablet PO 0.5 mg 0700,1100,1500,1900 ANIBAL Administration Radiology Results: ITS Impressions Abdomen/Pelvis CT 11/05/20 13:49 IMPRESSION: 1. Recurrent small bowel obstruction with transition point in the right abdomen wall thickening and increased enhancement raising concern for carcinoid tumor. 2. Minimal change in a previous noted slowly growing cluster of masses with calcific lesion at the central mesentery suspicious for carcinoid tumor with differential including sclerosing mesenteritis, sequela of old granulomatous disease or treated metastatic disease in the appropriate clinical setting. 3. Some interval progression in extensive chronic ground grass predominant lung disease in the bilateral lower lobes suspicious for chronic interstitial lung disease in either nonspecific interstitial pneumonia (NSIP) or desquamative interstitial pneumonia (DIP) pattern. Differential would include COVID pneumonia however lung disease appears to have been present. This significantly less degree on study dated 01/21/2019 Abdomen X-Ray 11/07/20 08:36 IMPRESSION: 1. Persistently dilated small bowel, consistent with small bowel obstruction. Labs Labs: Laboratory Results - last 24 hr 11/07/20 11/07/20 04:47 06:17 Hgb 12.1 L Hct 36.6 L Sodium 135 L Potassium 3.7 Chloride 104 Carbon Dioxide 21 L Anion Gap 10 BUN 14 Creatinine 0.80 Estim Creat Clear Calc 76 Estimated GFR > 60 Glucose 67 Calcium 8.7 Quality VTE Prophylaxis VTE prophylaxis: mechanical ordered
--- NOTE | 2020-11-07 15:14 | PM.IMPN ---
Progress Note: A&P Assessment and Plan (1) Small bowel obstruction: Code(s): K56.609 - Unspecified intestinal obstruction, unspecified as to partial versus complete obstruction Status: Acute Assessment and Plan: Unfortunately this has been an ongoing issue with the patient and he was just hospitalized at another facility 2 days prior to presentation for same. Continue with NG decompression. NPO diet. Appreciate general surgery consultation. Continue with IV fluids while NPO; decrease rate to 75 ml/hr and monitor volume status closely. Analgesics and antiemetics available as needed. no finally moving his bowels. X-ray and small-bowel follow-through still with persistent dilated small bowel loops. transit time from stomach to proximal colon was approximately 2 hours. Consists partial small-bowel obstruction versus adynamic ileus. Continues on NG decompression . Await General surgery recommendation (2) Parkinsons disease: Code(s): G20 - Parkinson's disease Status: Chronic Assessment and Plan: The patient's was concerned about the patient receiving his carbidopa levodopa. given the fact that he is passing flatus, will continue with his Parkinson's medications and clamp NG tube for 30 minutes at time of administration. When he is tolerating orals, a swallow study would be prudent to rule out silent aspiration given lung findings on CT scan. (3) Chronic anemia: Code(s): D64.9 - Anemia, unspecified Status: Chronic Assessment and Plan: Hemoglobin and hematocrit are stable on review of previous labs. (4) Hypokalemia: Code(s): E87.6 - Hypokalemia Status: Acute Assessment and Plan: Potassium 3.3 at presentation and has improved to 3.6 today with supplementation. Continue to monitor BMP. (5) Abnormal CT of the abdomen: Onset Date: ~05/03/20 Code(s): R93.5 - Abnormal findings on diagnostic imaging of other abdominal regions, including retroperitoneum Status: Acute Assessment and Plan: Minimal change in a slowly growing cluster of masses with calcific lesion at the central mesentery suspicious for carcinoid. As per HPI, the patient and his have met with several specialists and at this time they feel open biopsy is too risky and are comfortable with watchful waiting. (6) Chronic interstitial lung disease: Code(s): J84.9 - Interstitial pulmonary disease, unspecified Status: Acute Assessment and Plan: Findings on imaging suggest chronic interstitial lung disease and patient reported significant work and environmental exposures. He has no symptoms of cough or shortness of breath but may benefit from outpatient pulmonary referral. As above a swallow study would be appropriate when he is able to eat. Subjective Date/time seen: 11/07/20 15:14 Interval history: All Bernabe is a 75-year-old male with history of Parkinson's disease, prostate cancer, hyperlipidemia, CVA, chronic interstitial lung disease, hypertension is seen in follow-up for recurrent SBO. He reports he is feeling better. he had 3 bowel movement last night and having status. He also states that his abdomen is feeling softer and denies any distention. He is wondering about his NG tube if it can come out. He reports decreased hearing on the left side since past week Review of Systems Review of Systems: All systems reviewed & are unremarkable except as noted in HPI and below Exam Narrative: general comfortable not in acute distress NG tube in place Neuro: awake, alert and oriented x4, speech clear, no focal neuro deficits noted HEENMT: normocephalic, atraumatic. Right eye shut. He is able to open eye with his hands and has right eye exotropia, sclerae anicteric. Moist oral mucosa, NG tube secured to nare Neck: supple, no lymphadenopathy Respiratory: decreased breath sounds bilaterally, nonlabored breathing Cardio: regular rate
[2020-11-07 17:05] VITALS: BP 109/75; PULSE 103; RESP 16; TEMP 36.4; O2SAT 95
[2020-11-07 19:43] VITALS: BP 123/76; PULSE 82; RESP 17; TEMP 37.2; O2SAT 94
[2020-11-08 03:45] VITALS: BP 147/79; PULSE 72; RESP 17; TEMP 36.8; O2SAT 95
[2020-11-08 06:04] LABS: Anion Gap 8 mmol/L (8-16); Blood Urea Nitrogen 15 mg/dL (9-20); Calcium 8.6 mg/dL (8.4-10.2); Carbon Dioxide 23 mmol/L (22-30); Chloride 102 mmol/L (98-107); Estimated CRCL calculation 76 ml/min; Estimated Glomerular Filt Rate > 60; Glucose 77 mg/dL (65-110); Magnesium 1.9 mg/dL (1.6-2.3); Potassium 3.6 mmol/L (3.4-5.0); Sodium 133 mmol/L (137-145)
[2020-11-08 06:05] LABS: Basophils Percent Auto 0.2 % (0.2-1.2); Eosinophils Absolute Auto 0.1 K/mm3 (0-0.3); Eosinophils Percent Auto 1.2 % (0-4.4); Hematocrit 37.1 % (42.0-52.0); Hemoglobin 12.4 g/dL (14.0-18.0); Immature Granulocyte Absolute 0.05 K/mm3 (0.00-0.031); Immature Granulocyte Percent A 0.6 % (0-0.5); Lymphocytes Absolute Auto 1.19 K/mm3 (0.9-3.2); Lymphocytes Percent Auto 13.9 % (18.3-44.2); Mean Corpuscular HGB Conc 33.4 g/dl (32-36); Mean Corpuscular Hemoglobin 31.7 pg (26-34); Mean Corpuscular Volume 94.9 fl (80-100); Mean Platelet Volume 9.9 fl (7.4-10.4); Monocytes Absolute Auto 0.5 K/mm3 (0.1-0.6); Monocytes Percent Auto 6.2 % (2.6-8.5); Neutrophils Absolute Auto 6.7 K/mm3 (1.3-6.7); Neutrophils Percent Auto 77.9 % (45.5-73.1); Platelet Count Result 263 k/mm3 (150-375); Red Blood Count 3.91 M/mm3 (4.6-6.20); White Blood Count 8.6 K/mm3 (4.5-10.0)
[2020-11-08] MEDS: PRAMIPEXOLE 0.5 MG TABLET PO ×4 (06:41→18:57)
[2020-11-08] MEDS: CARBIDOPA/LEVODOPA 25/100 MG TABLET 3 TABLET PO ×4 (06:41→18:57)
[2020-11-08] MEDS: SODIUM CHLORIDE 0.9% IV 1,000 ML 75 ML IV CONT (09:00)
--- NOTE | 2020-11-08 10:05 | PM.PNGS ---
Progress Note: A&P Assessment and Plan (1) Small bowel obstruction: Code(s): K56.609 - Unspecified intestinal obstruction, unspecified as to partial versus complete obstruction Status: Acute Assessment and Plan: Resolving. Advance diet as tolerated. OK to discharge once tolerating soft diet. Discussed with yesterday. She already has information on soft diet that patient was previously on. I discussed with her that there is a possibility that the obstruction is caused by a tumor. She is ok with continuing to watch this since her has done fairly well with preventing these obstructions with dietary modifications in the past. (2) Abnormal CT of the abdomen: Onset Date: ~05/03/20 Code(s): R93.5 - Abnormal findings on diagnostic imaging of other abdominal regions, including retroperitoneum Status: Acute Subjective Subjective Date/Time Seen: 11/08/20 10:05 Interval history: Bowels moving and no abdominal tenderness, bloating, or nausea. Tolerating clears. Exam GI: Inspection: non-distended GI Palp: No abdominal tenderness, Yes Soft to palpation and No Guarding due to palpation present (GI) Objective Data Vital Signs Vital Signs: Vital Signs - 24 hr 11/07/20 17:05 11/07/20 19:43 11/08/20 03:45 Temperature 36.4 C L 37.2 C 36.8 C Pulse Rate 103 H 82 72 Respiratory Rate 16 17 17 Blood Pressure 109/75 123/76 147/79 H Pulse Oximetry 95 94 95 Intake/Output Intake/Output: Intake & Output 11/05/20 11/06/20 11/07/20 11/08/20 23:59 23:59 23:59 23:59 Intake Total 2260 2700 200 Output Total 2400 2750 700 Balance -140 -50 -500 Meds/Results Medications: Active Medications Generic Name Dose Route Start Last Admin Trade Name Freq PRN Reason Stop Dose Admin Carbidopa/Levodopa 3 tablet 11/05/20 21:55 11/08/20 06:41 Carbidopa/Levodopa 25/100 Mg Tablet PO 3 tablet 0700,1100,1500,1900 ANIBAL Administration Sodium Chloride 1,000 mls @ 75 mls/hr 11/05/20 15:30 11/07/20 18:54 Normal Saline Iv IV CONT 75 mls/hr .[id number] ANIBAL Administration Ondansetron HCl 4 mg 11/05/20 15:29 Ondansetron Inj 4 Mg/2 Ml Vial IV PUSH Q4H PRN Nausea Pramipexole Dihydrochloride 0.5 mg 11/05/20 21:45 11/08/20 06:41 Pramipexole 0.5 Mg Tablet PO 0.5 mg 0700,1100,1500,1900 ANIBAL Administration Radiology Results: ITS Impressions Abdomen/Pelvis CT 11/05/20 13:49 IMPRESSION: 1. Recurrent small bowel obstruction with transition point in the right abdomen wall thickening and increased enhancement raising concern for carcinoid tumor. 2. Minimal change in a previous noted slowly growing cluster of masses with calcific lesion at the central mesentery suspicious for carcinoid tumor with differential including sclerosing mesenteritis, sequela of old granulomatous disease or treated metastatic disease in the appropriate clinical setting. 3. Some interval progression in extensive chronic ground grass predominant lung disease in the bilateral lower lobes suspicious for chronic interstitial lung disease in either nonspecific interstitial pneumonia (NSIP) or desquamative interstitial pneumonia (DIP) pattern. Differential would include COVID pneumonia however lung disease appears to have been present. This significantly less degree on study dated 01/21/2019 Abdomen X-Ray 11/07/20 08:36 IMPRESSION: 1. Persistently dilated small bowel, consistent with small bowel obstruction. Small Bowel X-Ray 11/07/20 12:36 IMPRESSION: 1. Chronically dilated loops of ileum, consistent with partial small bowel obstruction versus adynamic ileus. Labs Labs: Laboratory Results - last 24 hr 11/08/20 11/08/20 05:11 05:11 WBC 8.6 RBC 3.91 L Hgb 12.4 L Hct 37.1 L MCV 94.9 MCH 31.7 MCHC 33.4 RDW 13.0 Plt Count 263 MPV 9.9 Immature Gran % (Auto) 0.6 H Neut % (Auto) 77.9 H Lymph % (Auto) 13.9 L Mason % (Auto) 6.2 Eos % (Auto) 1.2
[2020-11-08 14:29] VITALS: BP 128/84; PULSE 91; RESP 18; TEMP 36.6; O2SAT 96
--- NOTE | 2020-11-08 15:44 | PM.IMPN ---
Progress Note: A&P Assessment and Plan (1) Small bowel obstruction: Code(s): K56.609 - Unspecified intestinal obstruction, unspecified as to partial versus complete obstruction Status: Acute (2) Parkinsons disease: Code(s): G20 - Parkinson's disease Status: Chronic (3) Chronic anemia: Code(s): D64.9 - Anemia, unspecified Status: Chronic (4) Hypokalemia: Code(s): E87.6 - Hypokalemia Status: Acute (5) Abnormal CT of the abdomen: Onset Date: ~05/03/20 Code(s): R93.5 - Abnormal findings on diagnostic imaging of other abdominal regions, including retroperitoneum Status: Acute (6) Chronic interstitial lung disease: Code(s): J84.9 - Interstitial pulmonary disease, unspecified Status: Acute Additional Plan Unfortunately this has been an ongoing issue with the patient and he was just hospitalized at another facility 2 days prior to presentation for same. Continue with NG decompression. NPO diet. Appreciate general surgery consultation. Continue with IV fluids while NPO; decrease rate to 75 ml/hr and monitor volume status closely. Analgesics and antiemetics available as needed. no finally moving his bowels. X-ray and small-bowel follow-through still with persistent dilated small bowel loops. transit time from stomach to proximal colon was approximately 2 hours. Consists partial small-bowel obstruction versus adynamic ileus. Continues on NG decompression . Await General surgery recommendation The patient's was concerned about the patient receiving his carbidopa levodopa. given the fact that he is passing flatus, will continue with his Parkinson's medications and clamp NG tube for 30 minutes at time of administration. When he is tolerating orals, a swallow study would be prudent to rule out silent aspiration given lung findings on CT scan. Hemoglobin and hematocrit are stable on review of previous labs. Potassium 3.3 at presentation and has improved to 3.6 today with supplementation. Continue to monitor BMP. Minimal change in a slowly growing cluster of masses with calcific lesion at the central mesentery suspicious for carcinoid. As per HPI, the patient and his have met with several specialists and at this time they feel open biopsy is too risky and are comfortable with watchful waiting. Findings on imaging suggest chronic interstitial lung disease and patient reported significant work and environmental exposures. He has no symptoms of cough or shortness of breath but may benefit from outpatient pulmonary referral. As above a swallow study would be appropriate when he is able to eat. 11/08/20 pt doing much better was able to tolerate lunch, seen and cleared for dc surgery anticipate dc home tomorrow if remains clinically stable possibility of mass being cause of SBO discussed w , she is aware and will try to control SBO w dietary changes first Time Spent With Patient Time with patient: 25 - 35 minutes Subjective Date/time seen: 11/08/20 15:44 Patient states he is feeling a lot better he has been able to tolerate his food. He is not ready to go home yet would like to make sure that he is able to tolerate his dinner and go home in the morning. Exam Narrative: general comfortable not in acute distress NG tube in place Neuro: awake, alert and oriented x3, speech clear, no focal neuro deficits noted HEENMT: normocephalic, atraumatic. Right eye shut 2/2 double vision when both eyes open sclerae anicteric. Moist oral mucosa, NG tube secured to nare Neck: supple, no lymphadenopathy Respiratory: symmetric chest rise, aerating well, nonlabored breathing Cardio: regular rate, regular rhythm with S1-S2 Abdomen: nondistended, normoactive bowel sounds, soft, nontender to palpation Extremities: no edema, erythema, or tenderness to palpation Skin: no rashes or lesions, warm and dry Psych: appropriate mood and affect, judgment and insight intact Objective Dami
[2020-11-08 20:00] VITALS: PULSE 69; RESP 20; O2SAT 96
[2020-11-08 20:44] VITALS: BP 162/97; PULSE 69; RESP 20; TEMP 36.1; O2SAT 96
[2020-11-09 04:48] VITALS: BP 159/89; PULSE 59; RESP 18; TEMP 36.1; O2SAT 98
[2020-11-09] MEDS: CARBIDOPA/LEVODOPA 25/100 MG TABLET 3 TABLET PO (06:34)
[2020-11-09] MEDS: PRAMIPEXOLE 0.5 MG TABLET PO (06:34)
--- NOTE | 2020-11-09 09:23 | PCPTNOTE ---
Attempted to see patient for PT at this time, however patient declined due to anticipated discharge.
--- NOTE | 2020-11-09 10:36 | PM.DS ---
DS: Admitting Diagnosis Discharge Date 11/09/20 Admitting Diagnosis (1) Small bowel obstruction: Code(s): K56.609 - Unspecified intestinal obstruction, unspecified as to partial versus complete obstruction Status: Acute Assessment and Plan: Unfortunately this is been an ongoing issue with the patient. NG tube has been placed to intermittent suction and I suspect his condition will improve with conservative treatment as he is already starting to have flatus. Dr. Richardson has been consulted and his input is appreciated. (2) Parkinsons disease: Code(s): G20 - Parkinson's disease Status: Chronic Assessment and Plan: The patient's is very concerned with regards to his carbidopa levodopa and given the fact that he is now passing flatus I will have the nurse clamp his NG tube for 30 minutes and give his medication as long as that is tolerated by the patient. When he is tolerating orals, a swallow study would be prudent to rule out silent aspiration given lung findings on imaging as above. (3) Chronic anemia: Code(s): D64.9 - Anemia, unspecified Status: Chronic Assessment and Plan: Hemoglobin and hematocrit are stable on review of previous labs. (4) Hypokalemia: Code(s): E87.6 - Hypokalemia Status: Acute Assessment and Plan: Potassium will be replaced and monitored. (5) Abnormal CT of the abdomen: Onset Date: ~05/03/20 Code(s): R93.5 - Abnormal findings on diagnostic imaging of other abdominal regions, including retroperitoneum Status: Acute Assessment and Plan: Minimal change in a slowly growing cluster of masses with calcific lesion at the central mesentery suspicious for carcinoid. As per HPI, the patient is have met with several specialists and at this time they feel open biopsy is too risky and are comfortable with watchful waiting. (6) Chronic interstitial lung disease: Code(s): J84.9 - Interstitial pulmonary disease, unspecified Status: Acute Assessment and Plan: Findings on imaging today to suggest chronic interstitial lung disease and patient does report significant work and environmental exposures. He has no symptoms of cough or shortness of breath but may benefit from a Pulmonary consultation as an outpatient. As above a swallow study would be appropriate when he is able to eat. 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 - Benign carcinoid tumors of other sites Status: Acute (2) Hypokalemia: Code(s): E87.6 - Hypokalemia Status: Acute (3) Small bowel obstruction: Code(s): K56.609 - Unspecified intestinal obstruction, unspecified as to partial versus complete obstruction Status: Acute (4) Chronic interstitial lung disease: Code(s): J84.9 - Interstitial pulmonary disease, unspecified Status: Acute (5) Parkinsons disease: Code(s): G20 - Parkinson's disease Status: Acute (6) Hyperlipidemia: Code(s): E78.5 - Hyperlipidemia, unspecified Status: Acute (7) Hypertension: Code(s): I10 - Essential (primary) hypertension Status: Acute (8) Gastroesophageal reflux disease: Code(s): K21.9 - Gastro-esophageal reflux disease without esophagitis Status: Acute DS: Summary Hospital Course Reason for hospitalization: SBO Hospital Course: 75-year-old male admitted [facility] 2 days after being released from another facility for small-bowel obstruction. He is again noted to be distended with clinical exam findings and imaging findings indicative of ongoing small-bowel obstruction. He was admitted and placed on IV fluids, placed on NPO status, pain medication, NG tube inserted, surgery consulted. Patient did well and had a benign clinical course with conservative management. His small-bowel obstruction resolved and he was able to tolerate p.o. prior
== END 2020-11-09 11:23 | disposition home or self-care (01) | DRG 389 ==
LOC: ANHED 12:45 → ANH2MED 17:41
PROVIDERS: Emergency Medicine; Internal Medicine; Admitting Provider Internal Medicine; Emergency Provider General Practice; Visit Provider Physician Assistant
DX: K56.609 Unspecified intestinal obstruction, unspecified as to partial versus complete obstruction (principal); J84.9 Interstitial pulmonary disease, unspecified; G20 Parkinson's disease; D64.9 Anemia, unspecified; E87.6 Hypokalemia; Z20.822 Contact with and (suspected) exposure to COVID-19; E78.5 Hyperlipidemia, unspecified; K21.9 Gastro-esophageal reflux disease without esophagitis; I10 Essential (primary) hypertension; D3A.098 Benign carcinoid tumors of other sites; M81.0 Age-related osteoporosis without current pathological fracture; H53.2 Diplopia; Z85.46 Personal history of malignant neoplasm of prostate; Z85.828 Personal history of other malignant neoplasm of skin; I69.398 Other sequelae of cerebral infarction
CPT/HCPCS: 36415; 74019; 74177; 74250; 80048; 80053; 81001; 83690; 83735; 85014; 85018; 85025; 87426; 97161; 97165; 99285; A9270; C9803; J0360; J3480; J7030; J7060; Q9967

== ENCOUNTER 2021-01-10 13:55 | Inpatient (IN) | payer MEDICARE, SELFPAY ==
[2021-01-10] VITALS (7 sets, daily range): BP systolic 140–166; BP diastolic 72–99; PULSE 70–85; RESP 16–22; TEMP 36.6–36.8; O2SAT 94–98
--- NOTE | ~2021-01-10 | CT_ITS ---
EXAMINATION: CT hip LT wo con DATE: 01/11/2021 10:02 INDICATION: Intertrochanteric fracture of proximal left femur. TECHNIQUE: Computed tomography (CT) of the left hip was performed without intravenous contrast. Autom ated exposure control and iterative reconstruction technique were employed. The dose-length product w as 369.35 mGy-cm. COMPARISON: Pelvis and left hip radiographs 01/10/2021 FINDINGS: There is a comminuted intertrochanteric fracture of proximal left femur. The main distal fr acture fragment demonstrates 30 degrees varus angulation, posterior angulation, and impaction. There are benign bone islands in left femoral neck and left ischium. There is moderate left hip osteoarthri tis. IMPRESSION: 1. Acute intertrochanteric fracture of proximal left femur. Reviewed, dictated and finalized at location A. N PERFORMANCE CONSULTANT
--- NOTE | ~2021-01-10 | XR_ITS ---
XR hip LT 2V w AP pelvis 01/10/2021 14:21 Indication: Left hip pain after fall Procedure: AP pelvis and 2 views left hip Comparison: 08/05/2013 Findings: There is a comminuted left femoral intertrochanteric fracture with varus angulation. Osteop enia. There is old healed right inferior pubic ramus fracture. There are surgical changes in the pelv is. Moderate lumbar spondylosis with vertebroplasty changes in the upper lumbar spine. Impression: 1: Comminuted mildly displaced left femoral intertrochanteric fracture with varus angulation. Reviewed, dictated and finalized at location A. INE PACKAGING TECHNICIAN Impression: 1: Comminuted mildly displaced left femoral intertrochanteric fracture with carmelina us angulation.
--- NOTE | ~2021-01-10 | XR_ITS ---
EXAMINATION: XR surgery orthopedic EXAM DATE: 01/11/2021 18:27 INDICATION: Left hip fracture. TECHNIQUE: Fluoroscopy used during left hip intertrochanteric ORIF performed by orthopedic surgeon. Radiologist was not present for the imaging or procedure. Total fluoroscopic time of 301 seconds. The DAP for this procedure was 1.2 mGym2. A total of 5 images sent to PACS from the exam. There is no prior study for comparison. FINDINGS: There is a left hip intertrochanteric fracture. Left hip gamma nail in position. Correlat e with procedure note. IMPRESSION: Fluoroscopy used during left hip intertrochanteric ORIF. Reviewed, dictated and finalized at location A. SAW RUNNER
--- NOTE | ~2021-01-10 | XR_ITS ---
EXAMINATION: XR abdomen/kub 1V DATE: 01/11/2021 09:40 INDICATION: Small bowel obstruction. TECHNIQUE: A supine view of the abdomen on 2 radiographs was obtained. COMPARISON: Small bowel series 11/07/2020, CT abdomen and pelvis 01/10/2021 FINDINGS: There are multiple dilated loops of small bowel. The colon is normal in caliber. There are surgical clips in the pelvis. There are changes of vertebroplasty at 2 levels. No free intraperitonea l gas. There is a comminuted intertrochanteric fracture of proximal left femur. IMPRESSION: 1. Small bowel obstruction. 2. Comminuted intertrochanteric fracture of proximal left femur. Reviewed, dictated and finalized at location A. UNITY LEADER
--- NOTE | ~2021-01-10 | CT_ITS ---
EXAMINATION: CT brain wo con DATE: 01/11/2021 10:02 INDICATION: History of fall. Forgetfulness. TECHNIQUE: Computed tomography (CT) of the head was performed without intravenous contrast. The dose- length product was 681.00 mGy-cm. Automated exposure control and iterative reconstruction technique w ere employed. COMPARISON: CT dated 05/24/2018 and MRI dated 05/25/2018 FINDINGS: Generalized atrophy. There are scattered mild periventricular and subcortical white matter changes, most likely related to small vessel ischemic disease (microangiopathy). No ventriculomegaly or midline shift shift. Stable appearance to isodense left sphenoid wing mass, previously described a s meningioma. No acute intracranial hemorrhage, infection, mass or mass effect. Paranasal sinuses and mastoids are pneumatized. IMPRESSION: 1. No acute intracranial abnormality. 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 3: Chronic age-related findings. Reviewed, dictated and finalized at location A. TY TRAPPER
--- NOTE | ~2021-01-10 | CT_ITS ---
EXAMINATION: CT abdomen pelvis w con EXAM DATE: 01/10/2021 16:34 INDICATION: obstipation, ? h/o carcinoid tumor. History of bowel obstruction. Prostate, skin cancer. TECHNIQUE: Spiral CT of the abdomen and pelvis was performed following intravenous injection of 100 m L Omnipaque 350. Axial, coronal and sagittal images of the abdomen and pelvis were reviewed. The do se-length product (DLP) for this examination was 612.87 mGy-cm. The exposure was tailored according to patient size (auto mA exposure control), and iterative reconstruction (ASIR) was used as additiona l dose reduction technique. Comparison is made to prior examination from 11/05/2020. FINDINGS: There is a small bowel mass indicated on axial image 90/217, coronal image 54/120 causing s everely distended small bowel up to 7 cm, amount of distention unchanged compared to previous examina tion. However, the mass may not be completely obstructed given that there is fluid within small bowel distal to this, and there is moderately distended colon to the rectum with fluid. There is a 3 cm me senteric mass with some calcification, most consistent with carcinoid. Incidental ascending colonic 5 cm intraluminal lipoma. There are several liver cysts up to 2 cm. The spleen, adrenal glands, pancreas are unremarkable. Gal lbladder is unremarkable. No biliary obstruction. Portal and splenic veins are patent. Kidneys enh ance symmetrically. There is no hydronephrosis. There are multiple renal cysts and hemorrhagic cysts bilaterally. Largest cyst is in the lower pole of the left kidney measuring about 10 cm. There are 3 left calyceal stones identified, largest measuring 7 mm. Patient has probably had prostatectomy and pelvic lymph node dissection. The bladder is unremarkable. There is no retroperitoneal or pelvic l ymphadenopathy. Small left inguinal fat-containing hernia. Again there is extensive bibasilar groundglass airspace disease, with slight interval progression mallory pected. Chronic considerations include such as hypersensitivity pneumonitis, nonspecific interstitial pneumonitis (NSIP), cryptogenic organized pneumonia, desquamative interstitial pneumonitis (DIP). B ronchoalveolar cell can rarely cause this appearance however bilaterality would be unusual. There a re no osteoblastic or osteolytic lesions identified. There are treated burst fractures at L1 and L2. Mild loss of the other lumbar vertebral body heights. No acute fracture line is identified. IMPRESSION: 1. Small bowel mass causing chronic obstruction, severe proximal dilation. Moderate amount of coloni c fluid, diarrhea distal to this. Calcified mesenteric mass. 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 2. Continued progression of extensive bibasilar groundglass airspace disease, some differential cons iderations above. 3. Incidental ascending colonic intraluminal lipoma. 4. Left nephrolithiasis. 5. Other chronic findings. Reviewed, dictated and finalized at location A. [employer] IMPRESSION: 1. Small bowel mass causing chronic obstruction, severe proximal dilation. Mod erate amount of colonic fluid, diarrhea distal to this. Calcified mesenteric ma ss. 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 2. Continued progression of extensive bibasilar groundglass airspace disease, some differential considerations above. 3. Incidental ascending colonic intraluminal lipoma. 4. Left nephrolithiasis. 5. Other chronic findings.
[2021-01-10] MEDS: diazePAM INJ (*CRX) 10 MG/2 ML SYRINGE 5 MG IV PUSH (15:12)
--- NOTE | 2021-01-10 15:40 | ECG_ITS ---
Measurements Intervals [place] Rate: 76 P: -2 SD: 153 QRS: -50 QRSD: 146 T: -14 QT: 403 QTc: 455 Interpretive Statements SINUS RHYTHM RIGHT BUNDLE BRANCH BLOCK LEFT ANTERIOR FASCICULAR BLOCK BASELINE ARTIFACT- III ABNORMAL ECG Electronically Signed On 01-10-2021 20:07:50 DETAIL ASSEMBLER by Nelson Carranza D.O.
[2021-01-10 15:42] LABS: Basophils Percent Auto 0.3 % (0.2-1.2); Eosinophils Absolute Auto 0.1 K/mm3 (0-0.3); Eosinophils Percent Auto 1.8 % (0-4.4); Hemoglobin 12.1 g/dL (14.0-18.0); Immature Granulocyte Absolute 0.01 K/mm3 (0.00-0.031); Immature Granulocyte Percent A 0.2 % (0-0.5); Lymphocytes Absolute Auto 0.98 K/mm3 (0.9-3.2); Lymphocytes Percent Auto 16.1 % (18.3-44.2); Mean Corpuscular HGB Conc 33.6 g/dl (32-36); Mean Corpuscular Hemoglobin 32.9 pg (26-34); Mean Corpuscular Volume 97.8 fl (80-100); Mean Platelet Volume 9.4 fl (7.4-10.4); Monocytes Absolute Auto 0.4 K/mm3 (0.1-0.6); Monocytes Percent Auto 6.4 % (2.6-8.5); Neutrophils Absolute Auto 4.6 K/mm3 (1.3-6.7); Neutrophils Percent Auto 75.2 % (45.5-73.1); Platelet Count Result 256 k/mm3 (150-375); Red Blood Count 3.68 M/mm3 (4.6-6.20); Red Cell Distribution Width 13.3 % (11.5-14.5); White Blood Count 6.1 K/mm3 (4.5-10.0)
--- NOTE | 2021-01-10 15:43 | ED.FALL ---
HPI - Fall General Chief Complaint: Fall Stated Complaint: fall, hip pain Time Seen by Provider: 01/10/21 14:07 Source: patient and family Mode of arrival: EMS Limitations: physical limitation History of Present Illness HPI Narrative: 75-year-old male History of Parkinson's Lost his balance and fell at his house today landed on his left hip injuring it Unable to bear weight Transported by EMS with an obvious deformity He does not complain of any other injuries Additionally it sounds like he has been having problems with recurrent bowel obstructions possibly due to presence of a carcinoid tumor, but had been deferring surgery I guess in the hopes of I'm not sure what and reports that he is had no bowel movement for 2 days currently although he is not very distended or having very much pain and no vomiting Related Data Home Medications Medication Instructions Recorded Confirmed carbidopa-levodopa [Sinemet] 3 tablet PO QID@,,,01/21/19 11/05/20 pramipexole [Mirapex] 0.5 mg PO QID@,,,01/21/19 11/05/20 aspirin 81 mg PO DAILY 10/05/20 11/05/20 escitalopram oxalate [Lexapro] 20 mg PO DAILY 10/05/20 11/05/20 magnesium hydroxide [Milk of 60 ml PO DAILY 10/05/20 11/05/20 Magnesia] mineral oil 60 ml PO DAILY 10/05/20 11/05/20 pantoprazole 40 mg PO HS PRN 10/05/20 11/05/20 trazodone 50 mg PO HS 10/05/20 11/05/20 Allergies Allergy/AdvReac Type Severity Reaction Status Date / Time No Known Allergies Allergy Verified 01/10/21 14:26 Review of Systems Review of Systems: All systems reviewed & are unremarkable except as noted in HPI and below Constitutional: Constitutional: Reports no additional constitutional complaints, Denies chills, Reports fatigue, Denies fever(s), Denies headache(s) and Reports weakness Eyes: Eyes: Reports no additional eye complaints and Denies change in vision ENT: Denies headache(s) and Denies sore throat Cardiovascular: Cardiovascular: Denies chest pain and Denies dyspnea Respiratory: Respiratory: Denies cough and Denies dyspnea Gastrointestinal: Gastrointestinal: Denies abdominal pain, Reports constipation, Denies diarrhea, Denies nausea and Denies vomiting Genitourinary: Genitourinary: Denies dysuria and Denies urinary frequency Musculoskeletal: Musculoskeletal: Denies deformity, Reports arthralgias, Reports joint swelling and Denies numbness Integumentary/Breasts: Skin/Breast: Denies rash and Denies wounds Neurologic: Denies headache(s), Denies focal weakness, Denies numbness and Reports weakness Psychiatric: Psychiatric: Reports no additional psychiatric complaints Endocrine: Endocrine: Reports no additional endocrine complaints Hematologic/Lymphatic: Hematologic/Lymphatic: Reports no additional hematologic/lymphatic complaints Allergic/Immunologic: Allergic/Immunologic: Reports no additional allergic/immunologic complaints PMF Past Medical History Medical History Abnormal CT of the abdomen (~05/03/20) 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 Cerebrovascular accident Mild right-sided deficits, mainly in the leg. Chronic interstitial lung disease Noted on imaging though patient is asymptomatic he reports multiple occupational exposures. 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 Esophageal stricture Status post dilatation. Gastroesophageal reflux disease Hyperlipidemia Hypertension Kidney stone Osteoporosis Parkinsons disease Pelvis fracture Prostate cancer Status post open prostatectomy. Skin cancer Surgical History Surgical History History of eye surgery History of prostatectomy History of tonsillectomy Family History Fam
[2021-01-10 16:01] LABS: Alanine Aminotransferase 10 U/L (4-50); Albumin Level 3.9 g/dL (3.5-5.1); Alkaline Phosphatase 115 U/L (38-126); Anion Gap 6 mmol/L (8-16); Aspartate Amino Transferase 32 U/L (17-59); Bilirubin,Total 0.5 mg/dL (0.2-1.3); Blood Urea Nitrogen 20 mg/dL (9-20); Calcium 8.8 mg/dL (8.4-10.2); Carbon Dioxide 33 mmol/L (22-30); Chloride 102 mmol/L (98-107); Estimated CRCL calculation 62 ml/min; Estimated Glomerular Filt Rate > 60; Glucose 102 mg/dL (65-110); Lipase 133 U/L (23-300); Potassium 3.6 mmol/L (3.4-5.0); Sodium 141 mmol/L (137-145)
[2021-01-10 16:30] LABS: INR 0.9; Prothrombin Time 12.3 Seconds (11.1-14.7)
--- NOTE | 2021-01-10 17:00 | PM.CNGS ---
Assessment and Plan Assessment and plan (1) Small bowel obstruction: Code(s): K56.609 - Unspecified intestinal obstruction, unspecified as to partial versus complete obstruction Status: Acute Assessment and Plan: This patient presented with a fall, although a CT scan of the abdomen and pelvis was obtained in the ER due to complaints of constipation for the past 2 days. He has a history of partial small bowel obstructions that have been treated in the past with conservative measures. CT scan showed evidence of a small bowel mass causing chronic obstruction, severe proximal dilation, and a moderate amount of colonic fluid distal to this, with a calcified mesenteric mass. Unfortunately, the patient is also found to have a left femoral intertrochanteric fracture status post his fall. With his Parkinson's disease and acute hip fracture, the patient's mobility will be extremely limited. This would not be the ideal time to proceed with surgery to explore the mesenteric mass and possible small bowel obstruction. We will try to treat him conservatively at this time. Will consider Gastrografin small bowel follow through tomorrow morning to further evaluate the obstruction. We will work with the Hospitalist and Orthopedic Surgery to facilitate any surgical intervention if this is needed. For now, it would be in the patient's best interest to avoid abdominal surgery until he is more ambulatory. Will continue to follow along with you. (2) Calcified mesenteric mass: Code(s): K66.8 - Other specified disorders of peritoneum Status: Acute Assessment and Plan: Patient is known to have a calcified mesenteric mass dating back as far as 2013. Differential of mesenteric sclerosis versus carcinoid. The patient and his have decided to opt out of surgery in the past. See plan above. (3) Closed intertrochanteric fracture of left hip: Code(s): S72.142A - Displaced intertrochanteric fracture of left femur, initial encounter for closed fracture Status: Acute Assessment and Plan: X-ray showing comminuted mildly displaced left femoral intertrochanteric fracture with varus angulation. Orthopedic surgery consulted. (4) Parkinson's disease: Code(s): G20 - Parkinson's disease Status: Acute Assessment and Plan: Limits his mobility following any surgery and increases risks. (5) HTN (hypertension): Code(s): I10 - Essential (primary) hypertension Status: Acute (6) Chronic interstitial lung disease: Code(s): J84.9 - Interstitial pulmonary disease, unspecified Status: Acute Additional Plan I have discussed the patient's case and plan of care with Dr. Acharya. Thank you for allowing us to see the patient in consultation and we will continue to follow along with you. History of Present Illness Consult details Consult date: 01/10/21 Reason for consult: other (Possible small bowel obstruction, chronic mesenteric mass) Requesting physician: Anoop De La Fuente MD Narrative: This is a 75-year-old male who presented to the ER via EMS after a ground level fall at home from his scooter. He was trying to get into his scooter and fell to the floor on his left hip. He is reporting hip pain. No loss of consciousness. His is at the bedside and is also assisting in providing history. The patient has additional history of multiple previous small bowel obstructions that have resolved with conservative measures. He was found to have a mesenteric mass noted on imaging as far back as 2013, that has been a potential cause for his recurrent small bowel obstructions. He has had 4 hospitalizations for these small bowel obstructions since January of 2019, and three previously this year, with the most recent episode in November. His only previous abdominal surgery is an open prostatectomy for prostate cancer in 1999. For the past two days, the patient has not had a bowel movement and has barely been passing any
--- NOTE | 2021-01-10 18:34 | ADMGEN ---
This patient, All Bernabe, was admitted to Medical Room 252-01. Patient/family oriented to hospital policies and general routines including ID bracelet, bed and alarms, visiting hours, pain management, procedures, bathroom and other care routines, personal items, smoking policy, room service/diet, and visiting hours. Information on how to activate the Rapid Response Team has been discussed. Patient/Family are encouraged to report perceived risks to care and to ask questions if they do not understand what they are told or what they should do.
[2021-01-10] MEDS: LACTATED RINGERS 1,000 ML 100 ML IV CONT (19:28)
--- NOTE | 2021-01-10 19:37 | PC.NURSE ---
Pt's updated with what Dr. Acharya discussed prior to moving to room.
--- NOTE | 2021-01-10 20:40 | PM.IMHP ---
H&P: HPI History of Present Illness Date/Time: 01/10/21 20:40 this is a 75-year-old male patient who has had frequent small bowel obstructions due to benign carcinoid tumor and Parkinson's. The patient stated that he was transitioning from his outdoor scooter to was indoors scooter in his walk out basement when he was transferring from once good due to the other he fell and landed on his left hip injuring it. The patient was unable to bear weight. Patient was noted to have an obvious deformity per EMS. The patient has vomitus on his mouth that appears that he had been vomiting. Abdomen is very distended. Abdomen pelvis CT was read as small bowel mass causing chronic obstruction, severe proximal dilatation. Moderate amount of colonic fluid, diarrhea distal to this. Calcified mesenteric mass. 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 Continue progression of extensive bibasilar ground-glass airspace disease some differential considerations. Incidental ascending colonic intra luminal lipoma. Left nephrolithiasis. And other chronic findings. Hip and pelvis x-ray was read as comminuted mildly displaced left femoral intertrochanteric fracture with varus angulation. Orthopedic physician has been consulted and has agreed to see the patient. Also surgery has been consulted as well. It was recommended for a Gastrografin small-bowel follow-through for tomorrow. Conservative measures. An NG tube has not been ordered at this time. The patient was given IV fluid and Valium. The patient is being admitted to inpatient services on the date of service of 01/10/2021 Chief Complaint: Fall and left leg pain Review of Systems Review of Systems: All systems reviewed & are unremarkable except as noted in HPI and below Constitutional: Constitutional: Reports as per HPI and Reports no additional constitutional complaints Eyes: Eyes: Reports as per HPI and Reports no additional eye complaints ENT: Reports system reviewed and no additional complaints, except as documented and Reports Normal hearing present Cardiovascular: Cardiovascular: Reports no additional cardiovascular complaints Respiratory: Respiratory: Reports no additional respiratory complaints and Reports no additional respiratory complaints Gastrointestinal: Gastrointestinal: Reports as per HPI and Reports no additional gastrointestinal complaints Musculoskeletal: Musculoskeletal: Reports no additional musculoskeletal complaints Integumentary/Breasts: Skin/Breast: Reports system reviewed and no additional complaints, except as docu and Reports as per HPI Neurologic: Reports system reviewed and no additional complaints, except as documented, Reports as per HPI and Reports Normal hearing present Psychiatric: Psychiatric: Reports no additional psychiatric complaints and Reports as per HPI Endocrine: Endocrine: Reports no additional endocrine complaints Hematologic/Lymphatic: Hematologic/Lymphatic: Reports no additional hematologic/lymphatic complaints Allergic/Immunologic: Allergic/Immunologic: Reports no additional allergic/immunologic complaints PMFSH Past Medical History Medical History Abnormal CT of the abdomen (~05/03/20) 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 Amblyopia of left eye Cerebrovascular accident Mild right-sided deficits, mainly in the leg. Chronic interstitial lung disease Noted on imaging though patient is asymptomatic he reports multiple occupational exposures. 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 Esophageal stricture Status post dilatation. Gastroesophageal reflux disease Hyperlipidemia Hypertension Kidney stone Osteoporosis Parkinsons disease Pelvis fracture Prostate cance
[2021-01-10] MEDS: MORPHINE SULFATE (*CRX) 2 MG/ML INJ IV PUSH (22:22)
[2021-01-10] MEDS: PANTOPRAZOLE SODIUM IV 40 MG VIAL IV PUSH (22:47)
[2021-01-11] VITALS (11 sets, daily range): BP systolic 109–149; BP diastolic 68–95; PULSE 63–79; RESP 12–21; TEMP 36.1–37.3; O2SAT 93–100; BMI 24.5
[2021-01-11 06:14] LABS: Alanine Aminotransferase 13 U/L (4-50); Albumin Level 3.4 g/dL (3.5-5.1); Alkaline Phosphatase 105 U/L (38-126); Anion Gap 6 mmol/L (8-16); Aspartate Amino Transferase 23 U/L (17-59); Bilirubin,Total 0.8 mg/dL (0.2-1.3); Blood Urea Nitrogen 16 mg/dL (9-20); Calcium 8.3 mg/dL (8.4-10.2); Carbon Dioxide 25 mmol/L (22-30); Chloride 109 mmol/L (98-107); Estimated CRCL calculation 62 ml/min; Estimated Glomerular Filt Rate > 60; Glucose 87 mg/dL (65-110); Lactate Dehydrogenase 466 U/L (313-618); Magnesium 2.4 mg/dL (1.6-2.3); Potassium 4.3 mmol/L (3.4-5.0); Sodium 140 mmol/L (137-145)
[2021-01-11 06:34] LABS: Basophils Percent Auto 0.3 % (0.2-1.2); Eosinophils Absolute Auto 0.1 K/mm3 (0-0.3); Hematocrit 34.3 % (42.0-52.0); Hemoglobin 11.1 g/dL (14.0-18.0); Immature Granulocyte Absolute 0.02 K/mm3 (0.00-0.031); Immature Granulocyte Percent A 0.3 % (0-0.5); Lymphocytes Absolute Auto 1.41 K/mm3 (0.9-3.2); Lymphocytes Percent Auto 20.9 % (18.3-44.2); Mean Corpuscular HGB Conc 32.4 g/dl (32-36); Mean Corpuscular Hemoglobin 32.7 pg (26-34); Mean Corpuscular Volume 101.2 fl (80-100); Mean Platelet Volume 9.5 fl (7.4-10.4); Monocytes Absolute Auto 0.6 K/mm3 (0.1-0.6); Monocytes Percent Auto 8.9 % (2.6-8.5); Neutrophils Absolute Auto 4.6 K/mm3 (1.3-6.7); Neutrophils Percent Auto 68.6 % (45.5-73.1); Platelet Count Result 222 k/mm3 (150-375); Red Blood Count 3.39 M/mm3 (4.6-6.20); Red Cell Distribution Width 13.3 % (11.5-14.5); White Blood Count 6.8 K/mm3 (4.5-10.0)
[2021-01-11] MEDS: LACTATED RINGERS 1,000 ML 100 ML IV CONT (06:43)
[2021-01-11] MEDS: MORPHINE SULFATE (*CRX) 2 MG/ML INJ IV PUSH ×2 (06:55→10:59)
[2021-01-11] MEDS: CARBIDOPA/LEVODOPA 25/100 MG TABLET 3 TABLET PO ×3 (07:11→15:11)
[2021-01-11] MEDS: PRAMIPEXOLE 0.5 MG TABLET PO ×3 (07:11→15:12)
--- NOTE | 2021-01-11 07:14 | PCOTNOTE ---
Waiting for ortho consult to complete OT evaluation, will follow.
[2021-01-11 08:02] LABS: Thyroid Stimulating Hormone Reflex 0.269 uIU/mL (0.465-4.68)
--- NOTE | 2021-01-11 09:17 | PM.PNORT ---
Subjective Subjective Date/Time Seen: 01/11/21 09:00 Objective Data Vital Signs Vital Signs: Vital Signs - 24 hr 01/10/21 13:55 01/10/21 15:00 01/10/21 16:00 Temperature 36.6 C Pulse Rate 70 77 78 Respiratory Rate 16 22 H 20 Blood Pressure 146/88 H 163/95 H 156/72 H Pulse Oximetry 96 97 97 01/10/21 17:00 01/10/21 18:00 01/10/21 18:30 Temperature 36.8 C Pulse Rate 75 85 72 Respiratory Rate 20 20 18 Blood Pressure 156/92 H 166/85 H 140/84 Pulse Oximetry 97 98 97 01/10/21 19:18 01/11/21 03:18 Temperature 36.6 C 36.5 C Pulse Rate 81 69 Respiratory Rate 17 18 Blood Pressure 143/99 H 149/86 H Pulse Oximetry 94 95 Intake/Output Intake/Output: Intake & Output 01/08/21 01/09/21 01/10/21 01/11/21 23:59 23:59 23:59 23:59 Intake Total 1000 Output Total 900 200 Balance -900 800 Meds/Results Medications: Active Medications Generic Name Dose Route Start Last Admin Trade Name Freq PRN Reason Stop Dose Admin Hydrocodone Bitart/Acetaminophen 2 tab 01/10/21 16:19 Hydrocodone/Acetaminophen (*Crx) 5-325 Mg Tablet PO Q4H PRN Pain Rated 7-10 Albuterol 2 puff 01/10/21 20:59 Albuterol Sulfate (*Sp) Aerosol 1 Puff INHALATION Q6HRT PRN Shortness Of Breath Carbidopa/Levodopa 3 tablet 01/11/21 07:00 01/11/21 07:11 Carbidopa/Levodopa 25/100 Mg Tablet PO 3 tablet QID@07,11,15,19 ANIBAL Administration Escitalopram Oxalate 20 mg 01/11/21 09:00 Escitalopram Oxalate 10 Mg Tablet PO DAILY ANIBAL Hydralazine HCl 10 mg 01/10/21 21:01 Hydralazine Hcl 20 Mg/Ml Vial IV PUSH Q8H PRN Blood Pressure - High Lactated Ringer's 1,000 mls @ 100 mls/hr 01/10/21 16:20 01/11/21 06:43 Lr - Lactated Ringers Iv IV CONT 100 mls/hr .Q10H ANIBAL Administration Acetaminophen 1,000 mg in 100 mls @ 400 mls/hr 01/10/21 18:03 Ofirmev 1,000 Mg Ivpb IVPB 01/11/21 18:02 Q6H PRN Pain Rated 4-6 Morphine Sulfate 2 mg 01/10/21 20:56 01/11/21 06:55 Morphine Sulfate (*Crx) 2 Mg/Ml Inj IV PUSH 2 mg Q4H PRN Administration Pain Rated 7-10 Ondansetron HCl 4 mg 01/10/21 16:19 Ondansetron Inj 4 Mg/2 Ml Vial IV PUSH Q4H PRN Nausea Pantoprazole Sodium 40 mg 01/10/21 21:00 01/10/21 22:47 Pantoprazole Sodium Iv 40 Mg Vial IV PUSH 40 mg Q12HR ANIBAL Administration Pramipexole Dihydrochloride 0.5 mg 01/11/21 07:00 01/11/21 07:11 Pramipexole 0.5 Mg Tablet PO 0.5 mg QID@07,11,15,19 ANIBAL Administration Radiology Results: ITS Impressions Hip/Pelvis X-Ray 01/10/21 14:25 Impression: 1: Comminuted mildly displaced left femoral intertrochanteric fracture with varus angulation. Abdomen/Pelvis CT 01/10/21 16:35 IMPRESSION: 1. Small bowel mass causing chronic obstruction, severe proximal dilation. Moderate amount of colonic fluid, diarrhea distal to this. Calcified mesenteric mass. 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 2. Continued progression of extensive bibasilar groundglass airspace disease, some differential considerations above. 3. Incidental ascending colonic intraluminal lipoma. 4. Left nephrolithiasis. 5. Other chronic findings. Labs Labs: Laboratory Results - last 24 hr 01/10/21 01/10/21 01/10/21 15:29 15:29 16:02 WBC 6.1 RBC 3.68 L Hgb 12.1 L Hct 36.0 L MCV 97.8 MCH 32.9 MCHC 33.6 RDW 13.3 Plt Count 256 MPV 9.4 Immature Gran % (Auto) 0.2 Neut % (Auto) 75.2 H Lymph % (Auto) 16.1 L [place] % (Auto) 6.4 Eos % (Auto) 1.8 Baso % (Auto) 0.3 Lymph # (Auto) 0.98 [place] # (Auto) 0.4 Eos # (Auto) 0.1 Baso # (Auto) 0.0 Abs Immat Gran (auto) 0.01 Absolute Neuts (auto) 4.6 Absolute Nucleated RBC 0.0 Nucleated RBC % 0.0 PT 12.3 INR 0.9 Sodium 141 Potassium 3.6 Chloride 102 Carbon Dioxide 33 H Anion Gap 6 L BUN 20 Creatinine 1.00 Estim Creat Clear Mono
--- NOTE | 2021-01-11 09:19 | PM.CNOR ---
Assessment and Plan Assessment and plan (1) Closed intertrochanteric fracture of left hip: Qualifiers: Encounter type: initial encounter Fracture alignment: displaced Qualified Code(s): S72.142A - Displaced intertrochanteric fracture of left femur, initial encounter for closed fracture Code(s): S72.142A - Displaced intertrochanteric fracture of left femur, initial encounter for closed fracture Status: Acute Assessment and Plan: History, exam, radiographs and CT scan reviewed with the patient. Radiographs of the left hip upon arrival to the emergency room revealed a comminuted mildly displaced left femoral intertrochanteric fracture with varus angulation. CT scan of the left hip obtained today for surgical planning purposes as requested by Dr. Gillespie reveals an acute intertrochanteric fracture. Discussed fracture type, condition, nature, etiology course of natural history. Conservative and operative treatment options reviewed as well as risks benefits of each. Patient would have very limited mobility if he declined surgical intervention. He would like to proceed with surgical intervention at this time.The patients questions were answered. The patient desires operative treatment. Discussed Insertion of Gamma Nail Left Hip Risks of surgery including but not limited to neurovascular damage, wound complications, blood clot, pulmonary embolus, stroke, myocardial infarction, anesthetic risks up to and including were reviewed. Continued pain and possible dysfunction were explained. No guarantees were offered. The patient understands and wishes to proceed. Plan: Insertion of Gamma Nail LEFT hip by Dr. Gillespie Obtain consent. Pain control in the interim. NPO. Bedrest. 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 General surgery has assumed care. Plan for potential surgical intervention in approximately 1 month when patient is more mobile status post surgical intervention for his left hip fracture. (4) Partial small bowel obstruction: Code(s): K56.600 - Partial intestinal obstruction, unspecified as to cause Status: Acute Assessment and Plan: Treatment deferred to General Surgery who feels the patient is safe to proceed with hip surgery as opposed to abdominal surgery due to immobility. Additional Plan Reviewed case, physical exam, history, small bowel obstruction, general surgery recommendations and CT/Radiographs with Dr. Gillespie. History of Present Illness HPI Consult date: 01/11/21 Consult reason: fracture (Left Hip ) and other Chief complaint: left hip fracture,annikaisons Narrative: 75-year-old male admitted via the emergency room due to a fall at home. Patient does utilize a scooter most frequently however he does ambulate with a walker. Per the patient medical record, the patient was transitioning from his outdoor scooter to his indoor scooter at which point he fell onto the left side and was then unable to bear weight. EMS was called and he was found have an obvious deformity and transferred to the emergency room. Patient was also complaining of abdominal pain and a distended abdomen. A CT scan of the abdomen and pelvis was obtained. The CT scan showed evidence of a small bowel mass causing chronic obstruction, severe proximal dilation and a moderate amount of chronic fluid distal to this with a calcified mesenteric mass. The patient has been seen by General surgery due to the above findings and they do not feel it would be ideal to proceed with surgery to explore the mesenteric mass and possible small bowel obstruction due to current left hip fracture and history of Parkinson's and limited mobility. There is consideration to proceed with a Gastrografin small-bowel fol
[2021-01-11] MEDS: PANTOPRAZOLE SODIUM IV 40 MG VIAL IV PUSH (09:34)
[2021-01-11] MEDS: ESCITALOPRAM OXALATE 10 MG TABLET 20 MG PO (09:34)
--- NOTE | 2021-01-11 10:47 | PM.IMPN ---
Progress Note: A&P Assessment and Plan (1) Closed intertrochanteric fracture of left hip: Code(s): S72.142A - Displaced intertrochanteric fracture of left femur, initial encounter for closed fracture Status: Acute Assessment and Plan: Ortho has been consulted and are taking the patient to the OR this afternoon for hip surgery. Patient's pain is 9/10 at this time will have the nurse give him more pain meds SCDs for DVT prophylaxis prior to surgery Postop DVT prophylaxis, discharge planning, pain management as per orthopedic surgeon NPO at this time until after surgery Continue monitoring appreciate Orthopedics surgeon consultation (2) Partial small bowel obstruction: Code(s): K56.600 - Partial intestinal obstruction, unspecified as to cause Status: Acute Assessment and Plan: NPO at this time due to surgery. Surgery has seen the patient and maybe considering abdominal surgery tomorrow if his hip surgery goes well today. Had bowel movement last night and passing gas this mornnig. Appreciate Surgery input. (3) Parkinson's disease: Code(s): G20 - Parkinson's disease Status: Acute Assessment and Plan: Continue with carbidopa levodopa. 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 (5) Chronic interstitial lung disease: Code(s): J84.9 - Interstitial pulmonary disease, unspecified Status: Acute Assessment and Plan: P.r.n. albuterol (6) Hypertension: Code(s): I10 - Essential (primary) hypertension Status: Acute Assessment and Plan: BP slightly elevated 149/86. Most likely due to pain. Continue monitoring. P.r.n. hydralazine. Time Spent With Patient Time with patient: 25 - 35 minutes Subjective Date/time seen: 01/11/21 10:47 Interval history: Date of Service 01/11/21: Patient reports having 9/10 pain to his left hip at this time. He did have a large bowel movement last night which helped with his abdominal distension and constipation discomfort. He does report passing gas today. He denies any shortness of breath, cough, chest pain, nausea, vomiting, abdominal pain, leg swelling, lightheadedness, dizziness, urinary symptoms or any other symptoms at this time. Review of Systems Review of Systems: All systems reviewed & are unremarkable except as noted in HPI and below Exam Narrative: General: 75-year-old man laying flat in bed watching TV with his at bedside. Appears comfortable. In no acute distress. Skin: No jaundice or cyanosis. Good skin turgor. Neck: Full range of motion. Supple. Respiratory: Lungs are clear to auscultation bilaterally. No bony chest wall tenderness. Cardiovascular: The heart has a regular rate and rhythm without murmur. Lower extremities: Left leg is externally rotated and shortened. No lower extremity edema. Distal pulses are easily palpated. No calf tenderness to palpation. Gastrointestinal: The abdomen is soft, nontender and nondistended with active bowel sounds. Psychiatric: Lucid and oriented. Memory intact. Neurologic: No focal deficits. Speech is clear. No facial drooping. Objective Data Vital Signs Vital Signs: Vital Signs - 24 hr 01/10/21 13:55 01/10/21 15:00 01/10/21 16:00 Temperature 98 F Pulse Rate 70 77 78 Respiratory Rate 16 22 H 20 Blood Pressure 146/88 H 163/95 H 156/72 H Pulse Oximetry 96 97 97 01/10/21 17:00 01/10/21 18:00 01/10/21 18:30 Temperature 98.2 F Pulse Rate 75 85 72 Respiratory Rate 20 20 18 Blood Pressure 156/92 H 166/85 H 140/84 Pulse Oximetry 97 98 97 01/10/21 19:18 01/11/21 03:18 Temperature 98 F 97.7 F Pulse Rate 81 69 Respiratory Rate 17 18 Blood Pressure 143/99 H 149/86 H Pulse Oximetry 94 95 Intake/Output Intake/Output: Intake & Output 01/08/21 01/09/21
--- NOTE | 2021-01-11 12:38 | PCPTNOTE ---
Unable to perform PT evaluation this date due to awaiting ortho consult. Will attempt at a later date/time
--- NOTE | 2021-01-11 13:34 | PCPTNOTE ---
D/C current PT orders due to patient going for surgery, please re-order with appropriate WB status following surgery.
--- NOTE | 2021-01-11 14:18 | WPDHPUPDATE1 ---
History and Physical Update Update Date/Time: 01/11/21 14:18 History and Physical has been reviewed, including an updated exam of the patient. There are NO changes in the patient's condition. Risks, benefits, and alternatives have been discussed and questions answered. Patient agrees to proceed with procedure.
--- NOTE | 2021-01-11 14:37 | WPDANESEPPF ---
Anes - Initial Pre Proc Eval Procedure: Operation Date: 01/11/21 16:00 Proposed Procedures p Left Intertrochanteric Nail - Masoud Gillespie MD Date/Time: 01/11/21 14:37 Pre Op Diagnosis: left hip fracture,corinne Patient Data Age: 75 Gender: M Height: 1.83 m Weight: 79 kg Last Vital Signs Temp 36.5 C 01/11/21 03:18 Pulse 69 01/11/21 03:18 Resp 18 01/11/21 03:18 BP 149/86 H 01/11/21 03:18 Pulse Ox 95 01/11/21 03:18 Allergies Allergy/AdvReac Type Severity Reaction Status Date / Time No Known Allergies Allergy Verified 01/10/21 14:26 Home Medications Medication Instructions Recorded Confirmed Type carbidopa-levodopa [Sinemet] 3 tablet PO QID@,,,01/21/19 01/10/21 History pramipexole [Mirapex] 0.5 mg PO QID@,,,01/21/19 01/10/21 History aspirin 81 mg PO DAILY 10/05/20 01/10/21 History escitalopram oxalate [Lexapro] 20 mg PO DAILY 10/05/20 01/10/21 History magnesium hydroxide [Milk of 60 ml PO DAILY 10/05/20 01/10/21 History Magnesia] mineral oil 60 ml PO DAILY 10/05/20 01/10/21 History pantoprazole 40 mg PO HS PRN 10/05/20 01/10/21 History trazodone 50 mg PO HS 10/05/20 01/11/21 History pseudoephedrine HCl [Suphedrin] 15 mg PO DAILY 01/10/21 01/10/21 History Laboratory Tests 01/10/21 01/10/21 01/10/21 15:29 15:29 16:02 WBC 6.1 K/mm3 K/mm3 (4.5-10.0) RBC 3.68 M/mm3 L M/mm3 (4.6-6.20) Hgb 12.1 g/dL L g/dL (14.0-18.0) Hct 36.0 % L % (42.0-52.0) MCV 97.8 fl fl (80-100) MCH 32.9 pg pg (26-34) MCHC 33.6 g/dl g/dl (32-36) RDW 13.3 % % (11.5-14.5) Plt Count 256 k/mm3 k/mm3 (150-375) MPV 9.4 fl fl (7.4-10.4) Immature Gran % (Auto) 0.2 % % (0-0.5) Neut % (Auto) 75.2 % H % (45.5-73.1) Lymph % (Auto) 16.1 % L % (18.3-44.2) [place] % (Auto) 6.4 % % (2.6-8.5) Eos % (Auto) 1.8 % % (0-4.4) Baso % (Auto) 0.3 % % (0.2-1.2) Lymph # (Auto) 0.98 K/mm3 K/mm3 (0.9-3.2) [place] # (Auto) 0.4 K/mm3 K/mm3 (0.1-0.6) Eos # (Auto) 0.1 K/mm3 K/mm3 (0-0.3) Baso # (Auto) 0.0 K/mm3 K/mm3 (0.0-0.1) Abs Immat Gran (auto) 0.01 K/mm3 K/mm3 (0.00-0.031) Absolute Neuts (auto) 4.6 K/mm3 K/mm3 (1.3-6.7) Absolute Nucleated RBC 0.0 K/mm3 K/mm3 (0.0-0.012) Nucleated RBC % 0.0 % % (0.0-0.2) PT 12.3 Seconds Seconds (11.1-14.7) INR 0.9 Sodium 141 mmol/L mmol/L (137-145) Potassium 3.6 mmol/L mmol/L (3.4-5.0) Chloride 102 mmol/L mmol/L (98-107) Carbon Dioxide 33 mmol/L H mmol/L (22-30) Anion Gap 6 mmol/L L mmol/L (8-16) BUN 20 mg/dL mg/dL (9-20) Creatinine 1.00 mg/dL mg/dL (0.7-1.3) Estim Creat Clear Calc 62 ml/min ml/min Estimated GFR > 60 (59 - ) Glucose 102 mg/dL mg/dL (65-110) Calcium 8.8 mg/dL mg/dL (8.4-10.2) Magnesium Total Bilirubin 0.5 mg/dL mg/dL (0.2-1.3) AST 32 U/L U/L (17-59) ALT 10 U/L U/L (4-50) Alkaline Phosphatase 115 U/L U/L (38-126) Lactate Dehydrogenase Total Protein 7.0 g/dL g/dL (6.3-8.2) Albumin 3.9 g/dL g/dL (3.5-5.1) Lipase 133 U/L U/L (23-300) TSH (Reflex) Free T4 Total T3 Blood Type Antibody Screen 01/10/21 01/11/21 01/11/21 16:02 05:48 05:48 WBC 6.8 K/mm3 K/mm3 (4.5-10.0) RBC 3.39 M/mm3 L M/mm3 (4.6-6.20) Hgb 11.1 g/dL L g/dL (14.0-18.0) Hct 34.3 % L % (42.0-52.0) MCV 101.2 fl H fl (80-100) MCH 32.7 pg pg (26-34) MCHC 32.4 g/dl g/dl (32-36) RDW 13.3 % % (11.5-14.5) Plt Count 222 k/m
[2021-01-11] MEDS: LACTATED RINGERS 1,000 ML 30 ML IV CONT ×2 (15:00→18:40)
--- NOTE | 2021-01-11 15:01 | PM.PNGS ---
Progress Note: A&P Assessment and Plan (1) Small bowel obstruction: Code(s): K56.609 - Unspecified intestinal obstruction, unspecified as to partial versus complete obstruction Status: Acute Assessment and Plan: KUB this morning still showed multiple loops of dilated small bowel and colon normal in caliber. Patient moved his bowels today. Seems to be clinically improving. Will order KUB tomorrow. Okay to start clear liquids from our standpoint after his hip surgery today. (2) Calcified mesenteric mass: Code(s): K66.8 - Other specified disorders of peritoneum Status: Acute Assessment and Plan: Ultimately, he will likely require exploratory surgery, but we will try and avoid this while his acute hip fracture is being treated and attempt to do this more electively in the future if possible. See plan above. (3) Closed intertrochanteric fracture of left hip: Qualifiers: Encounter type: initial encounter Fracture alignment: displaced Qualified Code(s): S72.142A - Displaced intertrochanteric fracture of left femur, initial encounter for closed fracture Code(s): S72.142A - Displaced intertrochanteric fracture of left femur, initial encounter for closed fracture Status: Acute Assessment and Plan: Scheduled for his Orthopedic surgery this afternoon. (4) Parkinson's disease: Code(s): G20 - Parkinson's disease Status: Acute Additional Plan I have discussed the plan of care with Dr. Acharya. Subjective Subjective Date/Time Seen: 01/11/21 14:01 Patient reports: no new complaints, feels better, flatus and bowel movement Interval history: Patient seen today lying in bed with his at the bedside. He reports feeling better today. He had a large BM this morning and has passed more flatus today. No nausea or vomiting overnight or this morning. His only complaint is soreness in his left hip. Ortho is planning to proceed with surgery today. No other complaints at this time. Review of Systems Review of Systems: All systems reviewed & are unremarkable except as noted in HPI and below Exam Const: General: comfortable, no acute distress, alert and awake Eyes: Eyelids: eyelid abnormality (left eyelid droop) GI: Inspection: other (much less distended this afternoon) GI Palp: Yes Soft to palpation, No Tenderness to palpation present (GI), No Guarding due to palpation present (GI) and No Rebound tenderness present Auscultation: normal bowel sounds Skin: General skin exam: normal color Neuro: General: no focal motor deficits Extrem: General: normal to inspection and no clubbing, cyanosis or edema Psych: Mental Status: mental status grossly normal Insight: Good insight present (Psych) Judgement: Good judgement present (Psych) Objective Data Vital Signs Vital Signs: Vital Signs - 24 hr 01/10/21 16:00 01/10/21 17:00 01/10/21 18:00 Temperature Pulse Rate 78 75 85 Respiratory Rate 20 20 20 Blood Pressure 156/72 H 156/92 H 166/85 H Pulse Oximetry 97 97 98 01/10/21 18:30 01/10/21 19:18 01/11/21 03:18 Temperature 98.2 F 98 F 97.7 F Pulse Rate 72 81 69 Respiratory Rate 18 17 18 Blood Pressure 140/84 143/99 H 149/86 H Pulse Oximetry 97 94 95 Intake/Output Intake/Output: Intake & Output 01/08/21 01/09/21 01/10/21 01/11/21 23:59 23:59 23:59 23:59 Intake Total 1000 Output Total 900 200 Balance -900 800 Meds/Results Medications: Active Medications Generic Name Dose Route Start Last Admin Trade Name Freq PRN Reason Stop Dose Admin Hydrocodone Bitart/Acetaminophen 2 tab 01/10/21 16:19 Hydrocodone/Acetaminophen (*Crx) 5-325 Mg Tablet PO Q4H PRN Pain Rated 7-10 Albuterol 2 puff 01/10/21 20:59 Albuterol Sulfate (*Sp) Aerosol 1 Puff INHALATION Q6HRT PRN Shortness Of Breath Artificial Tears 1 drop 01/11/21 13:00 Artificial Tears Ophth Soln 15 Ml Bottle EACH EYE QID ANIBAL Carbidopa/Levod
[2021-01-11] MEDS: TRANEXAMIC ACID 1,000MG/ISO100 1,000 MG/100 ML BAG 200 MG IVPB (15:18)
--- NOTE | 2021-01-11 15:27 | PC.NURSE ---
To OR per bed at 1515 01/11/21.
--- NOTE | 2021-01-11 16:40 | SUR.PREOP ---
DR. CHRISTENSEN HERE. PT VOIDED 100 ML.
[2021-01-11] MEDS: ceFAZolin 2 GM/D5W 50 ML 2 GM/50 ML BAG IVPB ×2 (17:13→23:45)
--- NOTE | 2021-01-11 18:28 | P.OP_ITS ---
Procedure Note - Detailed Date of Procedure 01/11/21 Pre-op Diagnosis left hip fracture,corinne Post-op Diagnosis same Procedure Performed INSERTION GAMMA CHAZ LEFT HIP Surgeon Masoud Gillespie MD Anesthesia general Description of Procedure THE PATIENT WAS TAKEN TO THE OPERATING ROOM AND PLACED ON A FRACTURE TABLE AFTER GIVEN GENERAL ANESTHESIA. THE LEFT LOWER EXTREMITY WAS PLACED IN A TRACTION BOOT AND USING SOME TRACTION AND INTERNAL ROTATION THE INNER TROCHANTERIC FRACTURE WAS REDUCED TO ANATOMIC POSITION. NEXT THE LEFT LOWER EXTREMITY WAS PREPPED AND DRAPED IN THE STERILE FASHION. AN INCISION WAS MADE PROXIMAL TO THE TIP OF THE GREATER TROCHANTER AND DISSECTION CONTINUED TILL THE TIP OF THE GREAT ER TROCHANTER WAS PALPATED. A GUIDE PIN WAS PLACED DOWN THE FEMORAL CANAL AND PAST THE FRACTURE SITE. THIS WAS CHECKED ON FLUOROSCOPY AND FOUND TO BE IN GOOD POSITION. AN INITIAL REAMER WAS USED TO REAM THE FEMORAL CANAL. A 11 BY 200 MM ARTHREX HIP CHAZ WAS INSERTED TILL THE CORRECT POSITION WAS IDENTIFIED ON XRAY. A GUIDE PIN WAS INSERTED THROUGH THE FEMORAL NECK AT 125 DEG ANGLE TILL IT REAC HED THE TIP OF THE SUB CHONDRAL BONE SEEN ON XRAY. AFTER REAMING, LAG SCREW WAS INSERTED MEASURING 105 MM. XRAYS SHOWED IT TO BE IN GOOD POSITION. THE LAG SCREW WAS LOCKED PROXIMALLY. NEXT A DISTAL LOCKING SCREW WAS PLACED ACROSS THE CHAZ AND WAS IN GOOD POSITION ON XRAY. THE TRACTION WAS RELEASED. THE WOUNDS WERE WASHED. THE DEEP FASCIA WAS REPAIRED WITH 0 VICRYL SUTURE, THE SUB CUTANEOUS LAYER WITH 2-0 VICRYL, AND THE SKIN WITH MARY. THE WOUNDS WERE WASHED AND THEN STERILE DRESSING WAS APPLIED. PATIENT WAS EXTUBATED AND SENT TO RECOVERY ROOM. Estimated Blood Loss 100 Urine Output 200 Complications No immediate complications Condition stable Disposition PACU
--- NOTE | 2021-01-11 20:49 | PC.NURSE ---
Report given by August, Patient received from OR at 20:25 01/11/2021.
[2021-01-11] MEDS: DEXTROSE 5%/0.45% SOD CHL 1,000 ML 80 ML IV CONT (20:54)
[2021-01-11] MEDS: traZODone HCL 50 MG TABLET PO (22:04)
[2021-01-11] MEDS: HEPARIN SODIUM 5,000 UNITS/ML VIAL 5000 UNITS SUB-Q (22:04)
[2021-01-12 01:55] VITALS: BP 125/75; PULSE 77; RESP 20; TEMP 37; O2SAT 98
[2021-01-12 05:49] LABS: Basophils Percent Auto 0.1 % (0.2-1.2); Eosinophils Percent Auto 0.1 % (0-4.4); Hematocrit 27.8 % (42.0-52.0); Hemoglobin 9.3 g/dL (14.0-18.0); Immature Granulocyte Absolute 0.02 K/mm3 (0.00-0.031); Immature Granulocyte Percent A 0.3 % (0-0.5); Lymphocytes Absolute Auto 1.03 K/mm3 (0.9-3.2); Mean Corpuscular HGB Conc 33.5 g/dl (32-36); Mean Corpuscular Hemoglobin 32.6 pg (26-34); Mean Corpuscular Volume 97.5 fl (80-100); Mean Platelet Volume 9.4 fl (7.4-10.4); Monocytes Absolute Auto 0.7 K/mm3 (0.1-0.6); Neutrophils Absolute Auto 5.6 K/mm3 (1.3-6.7); Neutrophils Percent Auto 76.5 % (45.5-73.1); Platelet Count Result 226 k/mm3 (150-375); Red Blood Count 2.85 M/mm3 (4.6-6.20); Red Cell Distribution Width 12.6 % (11.5-14.5); White Blood Count 7.4 K/mm3 (4.5-10.0)
[2021-01-12 05:55] VITALS: BP 140/73; PULSE 58; RESP 20; TEMP 37.2; O2SAT 98
[2021-01-12 06:00] LABS: Alanine Aminotransferase 8 U/L (4-50); Albumin Level 2.9 g/dL (3.5-5.1); Alkaline Phosphatase 86 U/L (38-126); Anion Gap 7 mmol/L (8-16); Aspartate Amino Transferase 23 U/L (17-59); Bilirubin,Total 0.6 mg/dL (0.2-1.3); Blood Urea Nitrogen 16 mg/dL (9-20); Calcium 8.2 mg/dL (8.4-10.2); Carbon Dioxide 22 mmol/L (22-30); Chloride 103 mmol/L (98-107); Estimated CRCL calculation 62 ml/min; Estimated Glomerular Filt Rate > 60; Glucose 110 mg/dL (65-110); Sodium 132 mmol/L (137-145)
[2021-01-12] MEDS: ceFAZolin 2 GM/D5W 50 ML 2 GM/50 ML BAG IVPB ×2 (08:20→15:45)
[2021-01-12] MEDS: DOCUSATE SODIUM 100 MG CAPSULE PO ×2 (08:21→16:33)
[2021-01-12] MEDS: ASPIRIN 81 MG ENTERIC TABLET PO (08:21)
[2021-01-12] MEDS: PANTOPRAZOLE 40 MG TABLET PO (08:21)
[2021-01-12] MEDS: HEPARIN SODIUM 5,000 UNITS/ML VIAL 5000 UNITS SUB-Q (08:22)
[2021-01-12] MEDS: MINERAL OIL 30 ML UDC 60 ML PO (08:22)
[2021-01-12] MEDS: MAGNESIUM HYDROXIDE SUSP 30 ML UDC 60 ML PO (08:22)
[2021-01-12] MEDS: HYDROcodone/acetaminophen (*CRX) 7.5-325 MG TABLET 1 TAB PO ×2 (08:33→13:29)
--- NOTE | 2021-01-12 09:34 | PM.IMPN ---
Progress Note: A&P Assessment and Plan (1) Closed intertrochanteric fracture of left hip: Qualifiers: Encounter type: initial encounter Fracture alignment: displaced Qualified Code(s): S72.142A - Displaced intertrochanteric fracture of left femur, initial encounter for closed fracture Code(s): S72.142A - Displaced intertrochanteric fracture of left femur, initial encounter for closed fracture Status: Acute Assessment and Plan: Dr. Gillespie took the patient to the OR on 01/11/2021 to perform a insertion of gamma manuel to left hip. Patient reports tolerating his procedure well and feeling well at this time. He states he did well with therapy this morning Postop DVT prophylaxis, discharge planning, pain management as per orthopedic surgeon Dr. Gillespie Continue monitoring and appreciate Orthopedics surgeon consultation (2) Partial small bowel obstruction: Code(s): K56.600 - Partial intestinal obstruction, unspecified as to cause Status: Acute Assessment and Plan: Patient reports continuing to pass gas without any signs of abdominal pain, distention or bloating. Surgery has plans to perform an exploratory laparotomy in the coming weeks as he improves from his hip surgery Goal is to help continue bowel movements and prevent further small-bowel obstructions. Appreciate surgery input (3) Parkinson's disease: Code(s): G20 - Parkinson's disease Status: Acute Assessment and Plan: Continue with carbidopa levodopa. 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 (5) Chronic interstitial lung disease: Code(s): J84.9 - Interstitial pulmonary disease, unspecified Status: Acute Assessment and Plan: P.r.n. albuterol (6) Hypertension: Code(s): I10 - Essential (primary) hypertension Status: Acute Assessment and Plan: BP slightly elevated 140/73. Stable prior to medications. Continue monitoring. P.r.n. hydralazine. Time Spent With Patient Time with patient: 25 - 35 minutes Subjective Date/time seen: 01/12/21 09:34 Interval history: Date of Service 01/12/21: Patient reports having some hip pain at this time since he just got done with PT/OT. He is otherwise feeling well. He denies any more abdominal symptoms. He reports eating his breakfast. Denies nausea, vomiting, abdominal pain, fever, chills, constipation, leg swelling, calf pain, lightheadedness, dizziness, or any other symptoms at this time. Review of Systems Review of Systems: All systems reviewed & are unremarkable except as noted in HPI and below Exam Narrative: General: 75-year-old man sitting up in the chair, just finished working with therapy, watching TV. Appears comfortable. In no acute distress. Skin: No jaundice or cyanosis. Good skin turgor. Neck: Full range of motion. Supple. Respiratory: Lungs are clear to auscultation bilaterally. No bony chest wall tenderness. Cardiovascular: The heart has a regular rate and rhythm without murmur. Lower extremities: Left leg is in good position. No lower extremity edema noted. Distal pulses are easily palpated. No calf tenderness to palpation. Gastrointestinal: The abdomen is soft, nontender and nondistended with active bowel sounds. Psychiatric: Lucid and oriented. Memory intact. Neurologic: No focal deficits. Speech is clear. No facial drooping. Objective Data Vital Signs Vital Signs: Vital Signs - 24 hr 01/11/21 15:00 01/11/21 18:40 01/11/21 18:56 Temperature 99.1 F 97.0 F L Pulse Rate 79 63 67 Respiratory Rate 16 17 19 Blood Pressure 133/79 109/68 122/75 Pulse Oximetry 96 97 95 01/11/21 19:10 01/11/21 19:25 01/11/21 19:40 Temperature Pulse Rate 73 78 74 Respiratory Rate 15 17 17 Blood Pressure 148/91 H 129/95 H 140/91 H Pulse Oximetry 97
[2021-01-12 09:55] VITALS: BP 101/62; PULSE 62; RESP 20; TEMP 36.9; O2SAT 98
--- NOTE | 2021-01-12 10:32 | PM.PNORT ---
Progress Note: A&P Assessment and Plan (1) Closed intertrochanteric fracture of left hip: Qualifiers: Encounter type: initial encounter Fracture alignment: displaced Qualified Code(s): S72.142A - Displaced intertrochanteric fracture of left femur, initial encounter for closed fracture Code(s): S72.142A - Displaced intertrochanteric fracture of left femur, initial encounter for closed fracture Status: Acute Assessment and Plan: POD #1: INSERTION GAMMA CHAZ LEFT HIP Continue PT/OT. TTWB. HIGH FALL RISK. Walker. Pain control. Bowel Regimen. Ice lateral hip. SCDs. Incentive spirometry use reviewed with patient. DVT prophylaxis. Monitor dressing. Change on POD #2. May use Mepilex Silver dressing at that point so patient may shower. Dispo: SNF vs. Rehab when cleared by medicine and general surgery. (2) Partial small bowel obstruction: Code(s): K56.600 - Partial intestinal obstruction, unspecified as to cause Status: Acute Assessment and Plan: Narcotics for pain control but only as needed due to risk of constipation. Bowel regimen. 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 Follow up with general surgery accordingly. Subjective Subjective Date/Time Seen: 01/12/21 10:32 Post Op day: 1 Principal diagnosis: Left Hip Fx Interval history: POD #1: INSERTION GAMMA CHAZ LEFT HIP No new complaints today. Feeling well. Sitting up in the chair. Pain well controlled. Review of Systems Review of Systems: All systems reviewed & are unremarkable except as noted in HPI and below (HPI ) Exam Const: General: comfortable and no acute distress Resp: Effort & Inspection: normal respiratory effort Cardio: Rate: regular rate Rhythm: regular rhythm GI: GI Palp: No Tenderness to palpation present (GI) Skin: General skin exam: normal color Neuro: Cognition (Neuro): normal cognition Speech: normal speech Motor exam (neuro): strength not 5/5 throughout and Abnormal motor strength present Sensory Exam: normal sensation Extrem: Left lower extremity: hip/thigh Details: tenderness Location: of the hip Location: laterally, swelling (Thigh soft ) Location: of the hip (lateral ), of the proximal upper leg and of the mid upper leg, ecchymosis (mild surrounding incision ) and other (Dressing c/d/i), knee Details: normal to inspection and normal ROM; no tenderness and no swelling, lower leg (Negative Kira's Sign ) Details: normal to inspection; no erythema, ankle (+ankle dorsiflexion/plantarflexion ) Details: no edema and normal ROM; no warmth and no abrasions and foot Details: normal capillary refill, toes with normal ROM and vascular exam Details: dorsalis pedis pulse present; no tenderness Psych: Mental Status: mental status grossly normal Thought content: Yes Normal thought content present Objective Data Vital Signs Vital Signs: Vital Signs - 24 hr 01/11/21 15:00 01/11/21 18:40 01/11/21 18:56 Temperature 37.3 C 36.1 C L Pulse Rate 79 63 67 Respiratory Rate 16 17 19 Blood Pressure 133/79 109/68 122/75 Pulse Oximetry 96 97 95 01/11/21 19:10 01/11/21 19:25 01/11/21 19:40 Temperature Pulse Rate 73 78 74 Respiratory Rate 15 17 17 Blood Pressure 148/91 H 129/95 H 140/91 H Pulse Oximetry 97 93 94 01/11/21 19:55 01/11/21 20:25 01/11/21 20:55 Temperature 37.0 C 36.8 C Pulse Rate 67 79 79 Respiratory Rate 12 20 20 Blood Pressure 142/79 H 135/82 135/73 Pulse Oximetry 95 98 98 01/11/21 21:55 01/12/21 01:55 01/12/21 05:55 Temperature 36.7 C 37.0 C 37.2 C Pulse Rate 76 77 58 L Respiratory Rate 21 H 20 20 Blood Pressure 129/75 125/75 140/73 Pulse Oximetry 100 98 98 01/12/21 09:55 Temperature 36.9 C
[2021-01-12] MEDS: CARBIDOPA/LEVODOPA 25/100 MG TABLET 3 TABLET PO ×3 (11:20→20:31)
[2021-01-12] MEDS: PRAMIPEXOLE 0.5 MG TABLET PO ×3 (11:31→20:31)
[2021-01-12 13:55] VITALS: BP 105/60; PULSE 87; RESP 20; TEMP 37.2; O2SAT 92
--- NOTE | 2021-01-12 17:25 | PM.PNGS ---
Progress Note: A&P Assessment and Plan (1) Abnormal CT of the abdomen: Onset Date: ~05/03/20 Code(s): R93.5 - Abnormal findings on diagnostic imaging of other abdominal regions, including retroperitoneum Status: Chronic Assessment and Plan: small bowel mass suggested on CT scan as well as mesenteric mass. Carcinoid felt to be a likely cause although no biopsies have ever been done. Patient currently has no abdominal symptoms and I will start him on a regular diet. Will follow along but no surgery planned unless patient develops significant change in his abdominal condition. Hope to hold off on surgery and do this when he is more recovered from his hip fracture. (2) Partial small bowel obstruction: Code(s): K56.600 - Partial intestinal obstruction, unspecified as to cause Status: Chronic Assessment and Plan: Noted on CT scan with associated small-bowel mass but no symptoms of small-bowel obstruction at this time. Patient is not been constipated while in the hospital. Will follow along but plan is as above. Subjective Subjective Date/Time Seen: 01/12/21 06:25 Patient reports: no new complaints, pain is less ( Feels pretty comfortable after ORIF left hip fracture last night. No complaints of abdominal pain or nausea), tolerating liquids well, flatus, bowel movement and afebrile Review of Systems Review of Systems: All systems reviewed & are unremarkable except as noted in HPI and below Constitutional: Constitutional: Denies headache(s) Cardiovascular: Cardiovascular: Denies chest pain and Denies dyspnea Respiratory: Respiratory: Denies cough and Denies dyspnea Gastrointestinal: Gastrointestinal: Reports as per HPI, Denies abdominal pain, Denies constipation, Denies diarrhea, Denies nausea and Denies vomiting Neurologic: Denies confusion and Denies headache(s) Exam Const: General: comfortable and no acute distress; No confusion Orientation/consciousness: patient oriented x3 and No confusion GI: Inspection: non-distended and scar GI Palp: Yes Soft to palpation, No Tenderness to palpation present (GI), No Guarding due to palpation present (GI), No Hernia present and No Rebound tenderness present Auscultation: normal bowel sounds Neuro: General: oriented to place, oriented to time and No confusion Extrem: General: no calf tenderness and no edema Psych: Affect: Blunted affect present Attitude: cooperative Thought content: Yes Normal thought content present Insight: Fair insight present (Psych) Judgement: Fair judgement present (Psych) Objective Data Vital Signs Vital Signs: Vital Signs - 24 hr 01/11/21 18:40 01/11/21 18:56 01/11/21 19:10 Temperature 36.1 C L Pulse Rate 63 67 73 Respiratory Rate 17 19 15 Blood Pressure 109/68 122/75 148/91 H Pulse Oximetry 97 95 97 01/11/21 19:25 01/11/21 19:40 01/11/21 19:55 Temperature Pulse Rate 78 74 67 Respiratory Rate 17 17 12 Blood Pressure 129/95 H 140/91 H 142/79 H Pulse Oximetry 93 94 95 01/11/21 20:25 01/11/21 20:55 01/11/21 21:55 Temperature 37.0 C 36.8 C 36.7 C Pulse Rate 79 79 76 Respiratory Rate 20 20 21 H Blood Pressure 135/82 135/73 129/75 Pulse Oximetry 98 98 100 01/12/21 01:55 01/12/21 05:55 01/12/21 09:55 Temperature 37.0 C 37.2 C 36.9 C Pulse Rate 77 58 L 62 Respiratory Rate 20 20 20 Blood Pressure 125/75 140/73 101/62 Pulse Oximetry 98 98 98 01/12/21 13:55 Temperature 37.2 C Pulse Rate 87 Respiratory Rate 20 Blood Pressure 105/60 Pulse Oximetry 92 Intake/Output Intake/Output: Intake & Output 01/09/21 01/10/21 01/11/21 01/12/21 23:59 23:59 23:59 23:59 Intake Total 1200 1360 Output Total 900 1700 950 Balance -900 -500 410 Meds/Results Medications: Active Medications Generic Name Dose Route Start Last Admin Trade Name Freq PRN Reason Stop Dose Admin Acetaminophen 650 mg 01/11/21 20:10 Acetaminophen 325 Mg Tablet PO Q6H PRN Mild Pain (1-3
[2021-01-12 17:55] VITALS: BP 102/69; PULSE 77; RESP 20; TEMP 37.3; O2SAT 98
[2021-01-12] MEDS: traZODone HCL 50 MG TABLET PO (20:32)
[2021-01-12 21:55] VITALS: BP 114/72; PULSE 74; RESP 20; TEMP 37.1; O2SAT 94
[2021-01-13 02:00] VITALS: BP 135/77; PULSE 68; RESP 16; TEMP 36.9; O2SAT 94
[2021-01-13 06:00] VITALS: BP 123/85; PULSE 82; RESP 16; TEMP 36.9; O2SAT 99
[2021-01-13] MEDS: PRAMIPEXOLE 0.5 MG TABLET PO ×2 (06:11→13:45)
[2021-01-13] MEDS: CARBIDOPA/LEVODOPA 25/100 MG TABLET 3 TABLET PO ×2 (06:11→13:45)
[2021-01-13 06:18] LABS: Hematocrit 29.8 % (42.0-52.0); Mean Corpuscular HGB Conc 33.6 g/dl (32-36); Mean Corpuscular Hemoglobin 32.6 pg (26-34); Mean Corpuscular Volume 97.1 fl (80-100); Mean Platelet Volume 9.6 fl (7.4-10.4); Platelet Count Result 244 k/mm3 (150-375); Red Blood Count 3.07 M/mm3 (4.6-6.20); Red Cell Distribution Width 12.8 % (11.5-14.5); White Blood Count 7.5 K/mm3 (4.5-10.0)
[2021-01-13 06:28] LABS: Anion Gap 7 mmol/L (8-16); Blood Urea Nitrogen 24 mg/dL (9-20); Calcium 8.4 mg/dL (8.4-10.2); Carbon Dioxide 28 mmol/L (22-30); Chloride 100 mmol/L (98-107); Estimated CRCL calculation 52 ml/min; Estimated Glomerular Filt Rate 59; Glucose 110 mg/dL (65-110); Potassium 3.7 mmol/L (3.4-5.0); Sodium 135 mmol/L (137-145)
[2021-01-13] MEDS: MINERAL OIL 30 ML UDC 60 ML PO (08:29)
[2021-01-13] MEDS: MAGNESIUM HYDROXIDE SUSP 30 ML UDC 60 ML PO (08:30)
[2021-01-13] MEDS: FONDAPARINUX SODIUM 2.5 MG/0.5 ML SYRINGE SUB-Q (08:30)
[2021-01-13] MEDS: DOCUSATE SODIUM 100 MG CAPSULE PO (08:31)
[2021-01-13] MEDS: ASPIRIN 81 MG ENTERIC TABLET PO (08:31)
[2021-01-13] MEDS: HYDROcodone/acetaminophen (*CRX) 7.5-325 MG TABLET 1 TAB PO (09:45)
--- NOTE | 2021-01-13 10:32 | PM.PNGS ---
Progress Note: A&P Assessment and Plan (1) Abnormal CT of the abdomen: Onset Date: ~05/03/20 Code(s): R93.5 - Abnormal findings on diagnostic imaging of other abdominal regions, including retroperitoneum Status: Chronic Assessment and Plan: small bowel mass suggested on CT scan as well as a mesenteric mass. Carcinoid felt to be a likely cause although no biopsies have ever been done. Patient currently has no abdominal symptoms and seems to be tolerating a regular diet. Will follow along but no surgery planned unless patient develops significant change in his abdominal condition. Hope to hold off on surgery and do this when he is more recovered from his hip fracture. (2) Partial small bowel obstruction: Code(s): K56.600 - Partial intestinal obstruction, unspecified as to cause Status: Chronic Assessment and Plan: Noted on CT scan with associated small-bowel mass but no symptoms of small-bowel obstruction at this time. Patient is not been constipated while in the hospital. Will follow along but plan is as above. Additional Plan If no bowel movement by after lunch today ( 01/13) will try a Dulcolax suppository to help get the bowel started. Subjective Subjective Date/Time Seen: 01/13/21 10:32 Patient is sitting up in the chair working with PT when I entered the room. isotope technologist reports patient sat on the commode and urinated but did not have a bowel movement just prior to my visit. Patient states the last bowel movement was the day or morning of his recent surgery. He is not nauseated he tolerated his general diet this morning for breakfast. Review of Systems Review of Systems: All systems reviewed & are unremarkable except as noted in HPI and below Gastrointestinal: Gastrointestinal: Reports as per HPI, Reports no additional gastrointestinal complaints, Denies abdominal pain, Denies melena, Denies bloating, Denies hematochezia, Reports change in bowel habits, Denies constipation, Denies diarrhea, Denies nausea and Denies vomiting Genitourinary: Genitourinary: Reports no additional male genitourinary complaints Exam Const: General: comfortable, no acute distress, alert and awake; No confusion Nutritional Appearance: average body habitus Orientation/consciousness: oriented to place, oriented to time and No confusion Neck: Neck: normal visual inspection Resp: Effort & Inspection: able to speak in complete sentences and no respiratory distress Auscultation: clear to auscultation bilaterally Cardio: Rate: regular rate Rhythm: regular rhythm Heart sounds: S1 normal heart sound present and S2 normal heart sound present GI: Inspection: normal to inspection, non-distended, scar, no visible herniation and other (much less distended this afternoon) Auscultation: normal bowel sounds Rectal Exam: deferred Neuro: General: oriented to place, oriented to time, moves all extremities and No confusion Cranial nerves: Yes CN's II-XII intact bilaterally Speech: normal speech Motor exam (neuro): 5/5 motor strength present throughout (very slight right-sided weakness) Psych: Mental Status: mental status grossly normal Affect: Blunted affect present Attitude: cooperative Insight: Fair insight present (Psych) Judgement: Fair judgement present (Psych) Objective Data Vital Signs Vital Signs: Vital Signs - 24 hr 01/12/21 13:55 01/12/21 17:55 01/12/21 21:55 Temperature 37.2 C 37.3 C 37.1 C Pulse Rate 87 77 74 Respiratory Rate 20 20 20 Blood Pressure 105/60 102/69 114/72 Pulse Oximetry 92 98 94 01/13/21 02:00 01/13/21 06:00 Temperature 36.9 C 36.9 C Pulse Rate 68 82 Respiratory Rate 16 16 Blood Pressure 135/77 123/85 Pulse Oximetry 94 99 Intake/Output Intake/Output: Intake & Output 01/10/21 01/11/21 01/12/21 01/13/21 23:59 23:59 23:59 23:59 Intake Total 1200 1635 Output Total 900 1700 1200 200 Balance -900 -500 435 -200 Meds/Results Medications: Active Medi
--- NOTE | 2021-01-13 13:13 | PM.DS ---
DS: Admitting Diagnosis Discharge Date 01/13/21 Admitting Diagnosis Fall, Hip pain DS: Discharge Diagnosis Discharge Diagnosis (1) Closed intertrochanteric fracture of left hip: Qualifiers: Encounter type: initial encounter Fracture alignment: displaced Qualified Code(s): S72.142A - Displaced intertrochanteric fracture of left femur, initial encounter for closed fracture Code(s): S72.142A - Displaced intertrochanteric fracture of left femur, initial encounter for closed fracture Status: Acute Assessment and Plan: The patient is a 75-year-old man with a history of Parkinson's disease, who presented to the emergency room after sustaining a fall while transitioning into his wheelchair. He had increased pain to his left hip and was unable to get up after his fall. He has also been having issues with intermittent small bowel obstructions and constipation due to mesenteric mass. He was brought to emergency room for further evaluation and workup. Initial vitals showed elevated blood pressure 146/88, stable heart rate 70, afebrile, normal oxygenation on room air. Initial labs show normal white count, normocytic anemia with hemoglobin of 12, hemoglobin 36%. Normal coag panel. Normal CMP. X-ray of his hip and pelvis showed Comminuted mildly displaced left femoral intertrochanteric fracture with varus angulation. Abdominal x-ray showed small-bowel obstruction. CT abd/pelvis showed Small bowel mass causing chronic obstruction, severe proximal dilation. Moderate amount of colonic fluid, diarrhea distal to this. Calcified mesenteric mass. 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 Continued progression of extensive bibasilar groundglass airspace disease, some differential considerations above. Incidental ascending colonic intraluminal lipoma. CT Head showed No acute intracranial abnormality. 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 Chronic age-related findings. The patient was admitted to the hospital with a consult to Orthopedic surgery for hip fracture and General surgery due to small-bowel obstruction. Dr. Gillespie took the patient to the OR on 01/11/2021 to perform a insertion of gamma manuel to left hip. Patient reports tolerating his procedure well and feeling well at this time and doing well with PT/OT. Ortho wants the patient on Arixtra for DVT prophylaxis upon discharge for 28 days. The Acute rehab facility cannot get Arixtra until Friday so he will be on subQ heparin q.12 hours for DVT prophylaxis. Patient is continuing on his chronic laxative medications-milk of magnesia, mineral oil, Colace, and p.r.n. suppositories to prevent further small-bowel obstructions and constipation. The patient was given a suppository and he had a bowel movement prior to discharge. General surgery evaluated the patient and does not feel like surgery at this time is the best idea since he just had hip surgery. They will have plans to have him follow-up in the future and perform a exploratory surgery at that time. Patient was given Dr. Elliott information to call in follow-up. The patient understands agrees the plan all questions answered. He is stable for discharge to acute rehab facility. 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 (5) Chronic interstitial lung disease: Code(s): J84.9 - Interstitial pulmonary disease, unspecified Status: Acute Assessment and Plan: P.r.n. albuterol (6) Hypertension: Code(s): I10 - Essential (prima
--- NOTE | 2021-01-13 13:28 | PM.PNORT ---
Progress Note: A&P Additional Plan POD 2 DOING WELL, IMPROVING. SMALL BOWEL OBSTRUCTION NON SURGICAL MANAGEMENT PER GEN SURGERY. HE WILL [facility]. HE WILL REMAIN NON WEIGHT BEARING FOR 6 WEEKS. HE WILL F/U WITH [facility] IN 6 WEEKS TO 8 WEEKS. Subjective Subjective Date/Time Seen: 01/13/21 13:28POD 2 RIGHT GAMMA DOING WELL, COMFORTABLE.NO CALF PAIN Exam Extrem: Other: VSS AFEBRILE DRESSING DRY NV INTACT NEG HOMANS SIGN CALF SOFT NON TENDER, ABDOMEN SOFT NON TENDER Objective Data Vital Signs Vital Signs: Vital Signs - 24 hr 01/12/21 13:55 01/12/21 17:55 01/12/21 21:55 Temperature 37.2 C 37.3 C 37.1 C Pulse Rate 87 77 74 Respiratory Rate 20 20 20 Blood Pressure 105/60 102/69 114/72 Pulse Oximetry 92 98 94 01/13/21 02:00 01/13/21 06:00 Temperature 36.9 C 36.9 C Pulse Rate 68 82 Respiratory Rate 16 16 Blood Pressure 135/77 123/85 Pulse Oximetry 94 99 Intake/Output Intake/Output: Intake & Output 01/10/21 01/11/21 01/12/21 01/13/21 23:59 23:59 23:59 23:59 Intake Total 1200 1635 Output Total 900 1700 1200 200 Balance -900 -500 435 -200 Meds/Results Medications: Active Medications Generic Name Dose Route Start Last Admin Trade Name Freq PRN Reason Stop Dose Admin Acetaminophen 650 mg 01/11/21 20:10 Acetaminophen 325 Mg Tablet PO Q6H PRN Mild Pain (1-3) or Fever Hydrocodone Bitart/Acetaminophen 1 tab 01/11/21 20:10 01/13/21 09:45 Hydrocodone/Acetaminophen (*Crx) 7.5-325 Mg Tablet PO 1 tab Q3H PRN Administration Pain Rated 4-6 Aspirin 81 mg 01/12/21 09:00 01/13/21 08:31 Aspirin 81 Mg Enteric Tablet PO 02/11/21 08:59 81 mg DAILY ANIBAL Administration Carbidopa/Levodopa 3 tablet 01/12/21 11:00 01/13/21 06:11 Carbidopa/Levodopa 25/100 Mg Tablet PO 3 tablet 0700,1100,1500,1900 ANIBAL Administration Diazepam 5 mg 01/11/21 20:10 Diazepam (*Crx) 5 Mg Tablet PO Q8H PRN Muscle Spasm Docusate Sodium 100 mg 01/12/21 09:00 01/13/21 08:31 Docusate Sodium 100 Mg Capsule PO 100 mg BID ANIBAL Administration Fondaparinux 2.5 mg 01/13/21 09:00 01/13/21 08:30 Fondaparinux Sodium 2.5 Mg/0.5 Ml Syringe SUB-Q 2.5 mg DAILY ANIBAL Administration Magnesium Hydroxide 60 ml 01/12/21 09:00 01/13/21 08:30 Magnesium Hydroxide Susp 30 Ml Udc PO 60 ml DAILY ANIBAL Administration Magnesium Hydroxide 30 ml 01/11/21 20:10 Magnesium Hydroxide Susp 30 Ml Udc PO BID PRN Constipation Mineral Oil 60 ml 01/12/21 09:00 01/13/21 08:29 Mineral Oil 30 Ml Udc PO 60 ml DAILY ANIBAL Administration Morphine Sulfate 3 mg 01/11/21 20:10 Morphine Sulfate (*Crx) 4 Mg/Ml Inj IV PUSH Q3H PRN Pain Rated 7-10 Naloxone HCl 0.1 mg 01/11/21 20:10 Naloxone Hcl 0.4 Mg/Ml Vial IV PUSH Q2M PRN Opiate Reversal Pantoprazole Sodium 40 mg 01/11/21 20:10 01/12/21 08:21 Pantoprazole 40 Mg Tablet PO 40 mg HS PRN Administration Indigestion Pramipexole Dihydrochloride 0.5 mg 01/12/21 15:00 01/13/21 06:11 Pramipexole 0.5 Mg Tablet PO 0.5 mg QID@0700,1100,1500,1900 ANIBAL Administration Pseudoephedrine HCl 15 mg 01/12/21 09:00 Pseudoephedrine Hcl 30 Mg Tablet PO DAILY PRN CONGESTION Trazodone HCl 50 mg 01/11/21 21:00 01/12/21 20:32 Trazodone Hcl 50 Mg Tablet PO 50 mg HS ANIBAL Administration Radiology Results: ITS Impressions Hip/Pelvis X-Ray 01/10/21 14:25 Impression: 1: Comminuted mildly displaced left femoral intertrochanteric fracture with varus angulation. Abdomen/Pelvis CT 01/10/21 16:35 IMPRESSION: 1. Small bowel mass causing chronic obstruction, severe proximal dilation. Moderate amount of colonic fluid, diarrhea distal to this. Calcified mesenteric mass. 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 2. Continued progression of extensive bibasilar groundglass airspace disease, some differential considerations above. 3.
[2021-01-13 13:30] VITALS: BP 90/65; PULSE 89; RESP 16; TEMP 36.8; O2SAT 100
[2021-01-13] MEDS: BISACODYL 10 MG SUPPOSITORY RECTAL (13:45)
[2021-01-13 14:27] LABS: EDCOVIDSCREEN Negative (Negative)
== END 2021-01-13 15:53 | DRG 481 ==
LOC: ANHED 15:54 → ANH2MED 17:22
PROVIDERS: Nurse Practitioner; Orthopaedic Surgery; Admitting Provider Internal Medicine; Emergency Provider Emergency Medicine; Visit Provider Physician Assistant
PROC: 0QS734Z Reposition Left Upper Femur with Internal Fixation Device, Percutaneous Approach (ICD-10-PCS; CPT 27245; principal; 2021-01-11 16:00)
DX: S72.142A Displaced intertrochanteric fracture of left femur, initial encounter for closed fracture (principal); J84.9 Interstitial pulmonary disease, unspecified; K56.600 Partial intestinal obstruction, unspecified as to cause; W18.39XA Other fall on same level, initial encounter; Z20.822 Contact with and (suspected) exposure to COVID-19; D3A.098 Benign carcinoid tumors of other sites; G20 Parkinson's disease; I10 Essential (primary) hypertension; K21.9 Gastro-esophageal reflux disease without esophagitis; M81.0 Age-related osteoporosis without current pathological fracture; E78.5 Hyperlipidemia, unspecified; Z79.82 Long term (current) use of aspirin; Z79.899 Other long term (current) drug therapy; Z85.46 Personal history of malignant neoplasm of prostate; Z85.828 Personal history of other malignant neoplasm of skin; Z86.73 Personal history of transient ischemic attack (TIA), and cerebral infarction without residual deficits
CPT/HCPCS: 36415; 70450; 73502; 73700; 74018; 74177; 80048; 80053; 83615; 83690; 83735; 84439; 84443; 84480; 85025; 85027; 85610; 86850; 86900; 86901; 87426; 93005; 96374; 97110; 97161; 97166; 97530; 97535; 99285; A9270; C1713; C9113; C9803; J0330; J0690; J1100; J1644; J1652; J2270; J2590; J2704; J2710; J3010; J3360; J7120; Q9967

== ENCOUNTER 2021-01-26 18:31 | Inpatient (IN) | payer MEDICARE, SELFPAY ==
--- NOTE | ~2021-01-26 | XR_ITS ---
XR chest 1V portable 01/26/2021 19:44 Indication: Dyspnea. Weakness. Procedure: AP portable chest Comparison: Comparison to multiple prior studies sequentially, with oldest reviewed study dated 05/16. Findings: There is bibasilar airspace disease, compatible with pneumonia. No pleural effusion, edema or pneumothorax. No acute osseous abnormality. Impression: 1: Bibasilar airspace disease, compatible with pneumonia. Reviewed, dictated and finalized at location A. NSTITCH SEWING MACHINE OPERATOR Impression: 1: Bibasilar airspace disease, compatible with pneumonia.
--- NOTE | ~2021-01-26 | XR_ITS ---
EXAMINATION: XR chest 1V portable DATE: 02/03/2021 11:13 INDICATION: Shortness of breath TECHNIQUE: frontal view of the chest was obtained. COMPARISON: Chest radiograph dated 02/02/2021 FINDINGS: Nasogastric tube with distal tip in the region of the gastroesophageal junction and would recommend a dvancement. Left upper extremity peripherally inserted central venous catheter (PICC) tip at the sup erior cavoatrial junction. Increase in airspace opacities in the left mid and bilateral lower lung zones which could represent w orsening pneumonia, pulmonary edema or pneumonia. No pneumothorax or right-sided pleural effusion. Gr adient of hazy airspace opacity left lower lung zone which could represent a small posteriorly layeri ng left pleural effusion. Cardiomediastinal silhouette is within normal limits conifer AP technique a nd mild leftward rotation of the patient. IMPRESSION: 1. Nasogastric tube tip near the gastroesophageal junction and would recommend advancement by 10-15 c m. 2. Increasing opacities in the left mid and bilateral lower lung zones which could represent pulmonar y edema, atelectasis, pneumonia or some combination thereof. 3. Possible small left pleural effusion. Reviewed, dictated and finalized at location A. AIGN CONSULTANT IMPRESSION: 1. Nasogastric tube tip near the gastroesophageal junction and would recommend advancement by 10-15 cm. 2. Increasing opacities in the left mid and bilateral lower lung zones which co uld represent pulmonary edema, atelectasis, pneumonia or some combination there of. 3. Possible small left pleural effusion.
--- NOTE | ~2021-01-26 | CT_ITS ---
EXAMINATION: CT chest high resolution wo id DATE: 01/27/2021 09:37 INDICATION: Shortness of breath. Pneumonia. TECHNIQUE: Computed tomography (CT) of the chest was performed without intravenous contrast. The dose -length product was 202.64 mGy-cm. Automated exposure control and iterative reconstruction technique were employed. COMPARISON: Chest dated 01/26/2021 FINDINGS: There is extensive bilateral airspace disease of the mid and lower lungs, compatible with p neumonia. There is fluid in the superior pericardial recess. No significant lymphadenopathy. Cardiome kishor. No significant pleural or pericardial effusion. There is apical pleural thickening/scarring. No pneumothorax. No endobronchial lesions. IMPRESSION: 1. Extensive airspace disease of the mid and lower lungs bilaterally, consistent with pneumonia. Reviewed, dictated and finalized at location A. SPECIAL EDUCATION TEACHER IMPRESSION: 1. Extensive airspace disease of the mid and lower lungs bilaterally, consisten t with pneumonia.
--- NOTE | ~2021-01-26 | XR_ITS ---
EXAMINATION: XR chest 1V portable DATE: 02/04/2021 11:25 INDICATION: Pulmonary edema. TECHNIQUE: A single frontal view of the chest was obtained. COMPARISON: Chest single view 02/03/2021, chest CT 02/02/2021 FINDINGS: A calcified left lung nodule is consistent with old granulomatous disease. There are airspa ce opacities in the mid and lower lung zones with a perihilar and lower lung predominance. No pleural effusion or pneumothorax. The heart size is normal. A left upper extremity peripherally inserted jose angel tral venous catheter (PICC) is seen with tip in the superior vena cava. The nasogastric tube tip is i n the proximal duodenum. There are changes of vertebroplasty at 2 levels in lumbar spine. There is fr ee intraperitoneal gas, consistent with recent surgery. IMPRESSION: 1. Stable airspace opacities in the mid and lower lung zones, consistent with pneumonia. 2. Nasogastric tube tip in the proximal duodenum. Reviewed, dictated and finalized at location A. CTOR INVESTOR RELATIONS IMPRESSION: 1. Stable airspace opacities in the mid and lower lung zones, consistent with p neumonia. 2. Nasogastric tube tip in the proximal duodenum.
--- NOTE | ~2021-01-26 | XR_ITS ---
EXAMINATION: XR chest 1V portable DATE: 02/05/2021 04:28 INDICATION: Coarse breath sounds. TECHNIQUE: A single frontal view of the chest was obtained. COMPARISON: Chest single view 02/04/2021 FINDINGS: There are airspace opacities in all right lung zones and in left mid and lower lung zones. No pleural effusion or pneumothorax. The heart size is normal. The nasogastric tube tip is beyond the inferior margin of the radiograph, but at least to the stomach. A left upper extremity peripherally inserted central venous catheter (PICC) is seen with tip at the superior cavoatrial junction. There i s free intraperitoneal gas, consistent with recent surgery. IMPRESSION: 1. Diffuse lung disease with worsening on the right, consistent with pneumonia. Reviewed, dictated and finalized at location A. ENT DAY COORDINATOR
--- NOTE | ~2021-01-26 | XR_ITS ---
EXAMINATION: XR chest 1V portable EXAM DATE: 02/01/2021 11:24 INDICATION: Pneumonia, shortness breath, cough. TECHNIQUE: Portable AP frontal chest x-ray was obtained. Comparison is made to prior examination from 01/26/2021. FINDINGS: Interval development of large amount of free intraperitoneal gas, could be postoperative gi faye patient is postoperative day 2 for small bowel obstruction, small bowel and mesenteric masses. Fe eding tube is in position. Bibasilar airspace disease probably multisegmental pneumonia and atelectas is, appearance probably not significantly changed although the diaphragm is more elevated from free i ntraperitoneal gas. No pneumothorax. Cardiomediastinal silhouette is normal. Degenerative IMPRESSION: 1. Free intraperitoneal gas, most likely postoperative. 2. Multisegmental bibasilar pneumonia and atelectasis. 3. Feeding tube in position. Reviewed, dictated and finalized at location A. RESEARCH ENGINEER
--- NOTE | ~2021-01-26 | CT_ITS ---
EXAMINATION: CTA chest PE protocol EXAM DATE: 02/02/2021 00:34 INDICATION: unable to maintain O2 sats, 12L NC. TECHNIQUE: Spiral CTA of the chest (pulmonary arteries) was performed with 100 cc Omnipaque 350 intr avenous contrast injection. Images were acquired during the pulmonary arterial phase. Coronal maxi mum intensity projection 3D-reconstructions were created by the technologist on dedicated workstation . Axial, coronal and sagittal reformatted images were reviewed. The dose-length product (DLP) for t his examination was 446.04 mGy-cm. The exposure was tailored according to patient size (auto mA exp osure control), and iterative reconstruction (ASIR) was used as additional dose reduction technique. Comparison is made to prior examination from 01/27/2021. FINDINGS: Large amount of free intraperitoneal gas, pneumoperitoneum in patient who is postoperative day 3. Nasogastric tube is in position. There are no pulmonary emboli in the 1st through 3rd order (central and interlobar) pulmonary arterie s. Some loss of attenuation in the right basilar segmental pulmonary from respiratory motion, these regions not confidently evaluated. No Intraluminal filling defects identified. No thoracic aortic d issection. There is debris filling the left mainstem bronchus and left lower lobe bronchi with completely collap sed left lower lobe, some heterogeneous enhancement, combination of pneumonia and atelectasis. There is right basilar airspace disease, pneumonia and atelectasis in the right lower lobe, and groundglass airspace disease probably pneumonia in the left lower lobe. There are no pleural or pericardial effusions. There is no mediastinal, hilar or axillary lymphad enopathy. There is no pneumothorax. Heart normal in size. There is mild coronary arterial calci fication, arterial sclerosis. Renal lesions incompletely characterized but could be cysts and hemorr hagic cysts. Solid mass not excludable. Cholelithiasis. Mild compression fracture T11 and T12. 5 mm T 12 sclerotic focus probably bone island. Mild thoracic scoliosis. Compared to 01/27, the extensive left endobronchial debris has developed, left lower lobe has become completely collapsed. The pneumonia component itself probably not significantly changed. IMPRESSION: 1. Large amount of pneumoperitoneum. Clinical correlation. Feeding tube in position. 2. Bibasilar pneumonia and atelectasis, completely consolidated collapsed left lower lobe, left bron chial mucus plugging. 3. Cholelithiasis. Indistinct gallbladder wall probably reactive given other findings. 4. No pulmonary emboli suspected. 5. Indeterminate renal lesions. Reviewed, dictated and finalized at location D. ROLLER OPERATOR IMPRESSION: 1. Large amount of pneumoperitoneum. Clinical correlation. Feeding tube in pos ition. 2. Bibasilar pneumonia and atelectasis, completely consolidated collapsed left lower lobe, left bronchial mucus plugging. 3. Cholelithiasis. Indistinct gallbladder wall probably reactive given other f indings. 4. No pulmonary emboli suspected. 5. Indeterminate renal lesions.
--- NOTE | ~2021-01-26 | XR_ITS ---
EXAMINATION: XR abdomen NG/feed tube rechec INDICATION: Nasogastric tube recheck TECHNIQUE: Portable AP [id number] at 2141 hours COMPARISON: 2134 hours FINDINGS: The nasogastric tube is again seen to coil in the midesophagus and courses beyond the super ior margin of the radiograph. Dilated loops of bowel are noted in the partially visualized abdomen. T here are airspace opacities of the lung bases. Vertebroplasty change is seen in the lumbar spine. IMPRESSION: 1. Nasogastric tube coiling in the esophagus and coursing beyond the superior margin of the radiograp h. 2. Small bowel obstruction. Reviewed, dictated and finalized at location A. RVISOR DRYING AND WINDING IMPRESSION: 1. Nasogastric tube coiling in the esophagus and coursing beyond the superior m argin of the radiograph. 2. Small bowel obstruction.
--- NOTE | ~2021-01-26 | CT_ITS ---
EXAMINATION: CTA UE RT DATE: 02/04/2021 15:39 INDICATION: Right upper limb swelling. TECHNIQUE: Computed tomography (CT) of the right upper limb was performed with 100 mL Omnipaque 350 i ntravenous contrast. Automated exposure control and iterative reconstruction technique were employed. The dose-length product was 1451.91 mGy-cm. COMPARISON: None FINDINGS: There are airspace opacities and groundglass opacities in right lung middle lobe and lower lobe, consistent with pneumonia. There is a 2.0 cm cyst in the liver. There is subcutaneous edema in right forearm. Bone alignment is normal. No fracture. There is moderate osteoarthritis of acromioclav icular joint, mild osteoarthritis of glenohumeral joint, and moderate osteoarthritis of the elbow gela nt. There are loose bodies in the elbow joint. No elbow joint effusion. IMPRESSION: 1. Subcutaneous edema in the right forearm. No abscess. 2. Partially visualized pneumonia in right middle lobe and right lower lobe. 3. Polyarticular osteoarthritis. Reviewed, dictated and finalized at location A. WORKER HELPER SHOP
--- NOTE | ~2021-01-26 | XR_ITS ---
EXAMINATION: XR abdomen NG/feed tube insert INDICATION: Nasogastric tube placement TECHNIQUE: Portable AP KUB-NG at 2134 hours COMPARISON: 01/26/2021 FINDINGS: The nasogastric tube coils in the midesophagus and courses beyond the superior margin of th e radiograph. There are dilated loops of bowel in the partially imaged upper abdomen. Airspace opacit ies are present in the lung bases. IMPRESSION: 1. Nasogastric tube coiled in the esophagus and coursing above the superior margin of the radiograph. Follow-up radiograph is performed. Reviewed, dictated and finalized at location A. AN IMPRESSION: 1. Nasogastric tube coiled in the esophagus and coursing above the superior mar gin of the radiograph. Follow-up radiograph is performed.
--- NOTE | ~2021-01-26 | XR_ITS ---
XR abdomen obstructive series 01/26/2021 19:44 Indication: Diarrhea and abdomen pain Procedure: Supine and upright views of abdomen Comparison: Comparison to multiple prior studies sequentially, with oldest reviewed study dated 07/2020. Findings: Multiple moderately dilated small bowel loops, consistent with obstruction. Bibasilar airsp anne marie disease is present. Consider aspiration pneumonia. There are vertebroplasty changes in the upper lumbar spine. Impression: 1: Dilated small bowel loops, compatible with small bowel obstruction. 2: Bibasilar airspace disease, compatible with pneumonia. Consider aspiration in the appropriate set ting. Reviewed, dictated and finalized at location A. E D TECH Impression: 1: Dilated small bowel loops, compatible with small bowel obstruction. 2: Bibasilar airspace disease, compatible with pneumonia. Consider aspiration in the appropriate setting.
--- NOTE | ~2021-01-26 | XR_ITS ---
EXAMINATION: XR chest 1V portable EXAM DATE: 02/02/2021 08:59 INDICATION: Pulmonary edema SOB. TECHNIQUE: Portable AP frontal chest x-ray was obtained. Comparison is made to prior examination from 02/01/2021. FINDINGS: Again there is large amount of free intraperitoneal gas, probably postoperative but please clinically correlate. There is a nasogastric tube seen with tip collimated off the study, but below t he left hemidiaphragm. Elevated left hemidiaphragm, left lower lobe collapse with large amount of mucus plugging demonstrate d on CT from last night. Bibasilar multisegmental pneumonia. No pneumothorax. The bones are osteopeni c. There are bony degenerative changes. IMPRESSION: 1. Left lower lobe collapse. 2. Multisegmental bibasilar pneumonia. 3. Large amount of free intraperitoneal gas. Reviewed, dictated and finalized at location D. ET RECORDER
--- NOTE | ~2021-01-26 | US_ITS ---
EXAMINATION: US venous doppler UE RT DATE: 02/04/2021 17:38 INDICATION: Right upper limb swelling. TECHNIQUE: Grayscale ultrasound images without and with compression and Doppler ultrasound images of the right upper extremity veins were obtained. COMPARISON: None. FINDINGS: The visualized portions of the right internal jugular vein, subclavian vein, axillary vein, brachial veins, basilic vein, cephalic vein, radial vein, and ulnar vein are patent. IMPRESSION: 1. No deep venous thrombosis. Reviewed, dictated and finalized at location A. 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
--- NOTE | ~2021-01-26 | XR_ITS ---
EXAMINATION: XR abdomen/kub 1V INDICATION: Small bowel obstruction TECHNIQUE: Supine views of the abdomen were obtained on 2 radiographs. COMPARISON: 01/26/2021 FINDINGS: There are persistently dilated loops of small bowel without significant change. The distal small bowel and colon are relatively gasless. No free intraperitoneal gas is identified. Vertebroplas ty change is noted in the lumbar spine. Surgical clips in the pelvis are consistent with pelvic lymph node dissection. There is antegrade intramedullary manuel and interlocking intratrochanteric screw fixa tion of the left femur. IMPRESSION: 1. Small bowel obstruction, unchanged. Reviewed, dictated and finalized at location A. [employer]
--- NOTE | ~2021-01-26 | CT_ITS ---
EXAMINATION: CT abdomen pelvis wo con DATE: 01/27/2021 09:29 INDICATION: Small bowel obstruction TECHNIQUE: Computed tomography (CT) of the abdomen and pelvis was performed without intravenous contr ast. The dose-length product was 477.09 mGy-cm. Automated exposure control and iterative reconstructi on technique were employed. COMPARISON: CT dated 01/10/2021. FINDINGS: There is patchy groundglass opacities and airspace consolidation within both lungs, compati ble with pneumonia. No significant effusion. Cardiomegaly. There are gallstones. There is a liver cyst. The spleen, pancreas, adrenal glands are unremarkable. T here is diffusely dilated small bowel with bowel wall thickening and mesenteric edema. There are mult iple enlarged mesenteric lymph nodes. The colon is relatively decompressed. Mesenteric mass previousl y described is not well visualized due to lack of contrast. There is a 5 cm intraluminal lipoma of th e colon. There are several liver cysts. The spleen, adrenal glands and pancreas are unremarkable. The re is free fluid in the pelvis. There are changes of probable prior prostatectomy. There are multiple simple and complicated cysts of both kidneys. There are treated burst fractures of L1 and L2. There is mild loss of multiple lumbar vertebral body heights. No acute fracture line identified. There are nonobstructing left renal stones. IMPRESSION: 1. Small bowel obstruction with abnormal thickening of the small bowel as well as mesenteric edema an d mesenteric lymphadenopathy. No definite transition site identified. 2: Patchy bilateral airspace disease of the lung bases, consistent with pneumonia. 3: Left nephrolithiasis. Reviewed, dictated and finalized at location A. T IMPRESSION: 1. Small bowel obstruction with abnormal thickening of the small bowel as well as mesenteric edema and mesenteric lymphadenopathy. No definite transition site identified. 2: Patchy bilateral airspace disease of the lung bases, consistent with pneumon ia. 3: Left nephrolithiasis.
[2021-01-26 18:46] VITALS: BP 100/63; PULSE 78; RESP 18; TEMP 37.1; O2SAT 98
[2021-01-26 19:17] VITALS: BP 107/76
--- NOTE | 2021-01-26 19:18 | ED.GENADULT ---
HPI - General Adult General Chief complaint: Nausea/Vomiting/Diarrhea <Karie Roblero PA-C - Last Filed: 01/26/21 21:53> Stated complaint: diarrhea <JUVENAL Guzmán Last Filed: 01/26/21 21:53> Time Seen by Provider: 01/26/21 18:35 <Karie Roblero PA-C - Last Filed: 01/26/21 21:53> Source: patient and family () <Karie Roblero PA-C - Last Filed: 01/26/21 21:53> Mode of arrival: EMS <JUVENAL Guzmán Last Filed: 01/26/21 21:53> Limitations: physical limitation ( is primary historian) <Karie Roblero PA-C - Last Filed: 01/26/21 21:53> History of Present Illness HPI narrative: Brought in from [facility] today due to inability to eat or drink. 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 His tells me that he is having more difficulty swallowing over the past week and choked on his pills today. His speech has been muffled but in her observation is worsening. His states that 4 days ago he was able to stand and bear weight now he can barely move.He does have a history of Parkinson's and left hip fracture earlier in the month as well. <Karie Roblero PA-C - Last Filed: 01/26/21 21:53> Onset (ago): day(s) <Karie Roblero PA-C - Last Filed: 01/26/21 21:53> Related Data Home medications: Home Medications Medication Instructions Recorded Confirmed carbidopa-levodopa [Sinemet] 3 tablet PO QID@,,,01/21/19 01/16/21 pramipexole [Mirapex] 0.5 mg PO QID@,,,01/21/19 01/16/21 aspirin 81 mg PO DAILY 10/05/20 01/16/21 escitalopram oxalate [Lexapro] 20 mg PO DAILY 10/05/20 01/16/21 magnesium hydroxide [Milk of 60 ml PO DAILY 10/05/20 01/16/21 Magnesia] mineral oil 60 ml PO DAILY 10/05/20 01/16/21 pantoprazole 40 mg PO HS PRN 10/05/20 01/16/21 trazodone 50 mg PO HS 10/05/20 01/16/21 <Karie Roblero PA-C - Last Filed: 01/26/21 21:53> Allergies/adverse reactions: Allergies Allergy/AdvReac Type Severity Reaction Status Date / Time No Known Allergies Allergy Verified 01/11/21 15:10 <Karie Roblero PA-C - Last Filed: 01/26/21 21:53> Review of Systems Review of Systems: All systems reviewed & are unremarkable except as noted in HPI and below <Karie Roblero PA-C - Last Filed: 01/26/21 21:53> [facility] Past Medical History Medical History: Medical History Abnormal CT of the abdomen (~05/03/20) 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 Amblyopia of left eye Cerebrovascular accident Mild right-sided deficits, mainly in the leg. Chronic interstitial lung disease Noted on imaging though patient is asymptomatic he reports multiple occupational exposures. 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 Esophageal stricture Status post dilatation. Gastroesophageal reflux disease Hyperlipidemia Hypertension Kidney stone Osteoporosis Parkinsons disease Pelvis fracture Prostate cancer Status post open prostatectomy. Skin cancer <Karie Roblero PA-C - Last Filed: 01/26/21 21:53> Surgical History Surgical History: Surgical History History of eye surgery History of prostatectomy History of tonsillectomy <Karie Roblero PA-C - Last Filed: 01/26/21 21:53> Family History Family History: Family History Sibling Breast cancer Mother Heart disease <Karie Roblero PA-C - Last Filed: 01/26/21 21:53> Social History Social History: Social History Social History: Surrogate [email or web address]
[2021-01-26] MEDS: SODIUM CHLORIDE 0.9% IV 1,000 ML 999 ML IV CONT ×2 (19:36→20:52)
[2021-01-26] MEDS: AMPICILLIN SULB 1.5 GM/NS 50ML 1.5 GM/50 ML VIAL IVPB (20:52)
--- NOTE | 2021-01-26 21:05 | PC.NURSE ---
Per ED MD, pt has a partial SBO. currently in room speaking with pt and family at bedside.
[2021-01-26 21:36] LABS: Anion Gap 9 mmol/L (8-16); Blood Urea Nitrogen 73 mg/dL (9-20); Carbon Dioxide 26 mmol/L (22-30); Chloride 107 mmol/L (98-107); Estimated Glomerular Filt Rate 42; Glucose 111 mg/dL (65-110); Lactic Acid Reflex 1.8 mmol/L (0.7-2.1); Potassium 3.3 mmol/L (3.4-5.0); Sodium 142 mmol/L (137-145)
--- NOTE | 2021-01-26 21:46 | PC.NURSE ---
NG tube placement attempted x 2 unsuccessfully. Portable x-ray for placement both show looped tube. Removed by this RN. ED MD aware of unsuccessful placement.
[2021-01-26 21:50] LABS: Hematocrit 29.5 % (42.0-52.0); Hemoglobin 9.5 g/dL (14.0-18.0); Mean Corpuscular HGB Conc 32.2 g/dl (32-36); Mean Corpuscular Hemoglobin 32.8 pg (26-34); Mean Corpuscular Volume 101.7 fl (80-100); Mean Platelet Volume 8.9 fl (7.4-10.4); Platelet Count Result 589 k/mm3 (150-375); Red Cell Distribution Width 15.1 % (11.5-14.5)
--- NOTE | 2021-01-26 21:50 | PM.IMHP ---
H&P: HPI History of Present Illness Date/Time: 01/26/21 21:50 Chief Complaint: ABDOMINAL PAIN Narrative: THIS IS A 75-YEAR-OLD MALE WITH PAST MEDICAL HISTORY SIGNIFICANT FOR PARKINSON'S DISEASE, RECURRENT SMALL-BOWEL OBSTRUCTION, PATIENT WAS REHABILITATION FACILITY WHERE HE HAS BEEN FOR A FEW DAYS AFTER HE HAD HIP REPLACEMENT SURGERY DUE TO FRACTURE. HE WAS BROUGHT IN TODAY DUE TO NAUSEA, VOMITING ,ABDOMINAL DISTENSION, DIARRHEA, TODAY HE SHOCK ON HIS PILLS WELL HAS NOT BEEN ABLE TO EAT OR DRINK. ACCORDING TO HE DID VERY WELL FOR THE VERY 1ST 3 DAYS AT THE REHAB CENTER BUT TODAY HE LOOKED DEHYDRATED AND WANTED TO BRING HIM TO THE EMERGENCY ROOM. PRELIMINARY WORKUP IN THE EMERGENCY ROOM WAS SIGNIFICANT FOR CHEST X-RAY SHOWED LUNG INFILTRATES, ABDOMINAL X-RAY SHOWED DILATED BOWEL LOOPS CONSISTENT WITH SMALL-BOWEL OBSTRUCTION AND BIBASILAR INFILTRATES OF THE LUNG. DECISION HAS BEEN MADE TO ADMIT THE PATIENT FOR FURTHER MANAGEMENT EVALUATION AND TREATMENT. Review of Systems Review of Systems: NAUSEA ,VOMITING ,DIARRHEA ,ABDOMINAL DISTENSION. Constitutional: Constitutional: Denies chills, Reports fatigue, Denies fever(s), Reports lethargy, Reports poor appetite and Reports weakness Eyes: Eyes: Denies change in vision ENT: Reports dysphagia, Denies nasal congestion, Denies nasal discharge, Denies nasal obstruction and Denies odynophagia Cardiovascular: Cardiovascular: Denies irregular heart rhythm, Denies leg edema, Denies lightheadedness, Denies radiating jaw, neck or arm pain, Denies palpitations, Denies dyspnea on exertion and Denies orthopnea Respiratory: Respiratory: Denies change in phlegm color, Denies cough, Denies excessive phlegm production, Denies dyspnea and Denies wheezing Gastrointestinal: Gastrointestinal: Reports abdominal pain, Denies dyspepsia, Denies heartburn, Reports diarrhea, Reports nausea and Reports vomiting Comments: ABDOMINAL DISTENSION Genitourinary: Genitourinary: Denies dysuria and Denies flank pain Musculoskeletal: Musculoskeletal: Denies arthralgias, Denies joint swelling, Denies limited range of motion and Denies muscle weakness Integumentary/Breasts: Skin/Breast: Denies rash Neurologic: Denies vertigo, Denies dizziness, Denies syncope, Denies focal weakness and Denies Sensory deficit (Neuro) Psychiatric: Psychiatric: Reports no additional psychiatric complaints and Reports as per HPI Endocrine: Endocrine: Reports no additional endocrine complaints and Reports as per HPI Hematologic/Lymphatic: Hematologic/Lymphatic: Reports no additional hematologic/lymphatic complaints and Reports as per HPI Allergic/Immunologic: Allergic/Immunologic: Reports no additional allergic/immunologic complaints and Reports as per HPI [facility] Past Medical History Medical History Abnormal CT of the abdomen (~05/03/20) 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 Amblyopia of left eye Cerebrovascular accident Mild right-sided deficits, mainly in the leg. Chronic interstitial lung disease Noted on imaging though patient is asymptomatic he reports multiple occupational exposures. 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 Esophageal stricture Status post dilatation. Gastroesophageal reflux disease Hyperlipidemia Hypertension Kidney stone Osteoporosis Parkinsons disease Pelvis fracture Prostate cancer Status post open prostatectomy. Skin cancer Surgical History Surgical History History of eye surgery History of prostatectomy History of tonsillectomy Family History Family History Sibling Breast cancer Mother Heart disease So
[2021-01-26 21:51] VITALS: BP 104/63; PULSE 86; RESP 20; O2SAT 92
[2021-01-26 21:53] LABS: Band Neutrophils Percent 8 % (0-6); Lymphocytes Absolute Manual 0.39 K/mm3 (1.1-4.5); Lymphocytes Percent Manual 3 % (18-44); Monocytes Percent Manual 10 % (3-9); Neutrophils Absolute Manual 11.31 K/mm3 (1.3-6.7); Neutrophils Percent Manual 79 % (46-73); Platelet Estimate Increased (Adequate); Total Cells Counted 100
[2021-01-26 21:54] LABS: Anisocytosis 1+ (NORMAL); Ovalocytes 1+ (NORMAL); Platelet Clumps Present
[2021-01-26 22:00] VITALS: RESP 20
--- NOTE | 2021-01-26 22:40 | ADMGEN ---
This patient, All Bernabe, was admitted to Medical Room 241-01. Patient/family oriented to hospital policies and general routines including ID bracelet, bed and alarms, visiting hours, pain management, procedures, bathroom and other care routines, personal items, smoking policy, room service/diet, and visiting hours. Information on how to activate the Rapid Response Team has been discussed. Patient/Family are encouraged to report perceived risks to care and to ask questions if they do not understand what they are told or what they should do.
[2021-01-26 22:54] LABS: Add Urine Microscopic? YES; Appearance Urine Cloudy (Clear); Bacteria Urine Trace /hpf; Bilirubin Urine Negative (Negative); Blood Urine 1+ (Negative); Color Urine Amber (Yellow); Glucose Urine UA Negative (Negative); Ketones Urine Trace mg/dL (Negative); Leukocyte Esterase Ur Negative LEU/UL (Negative); Mucus Urine Few /lpf; Nitrate Urine Negative (Negative); Protein Urine 1+ mg/dL (Negative); Specific Grav Ur 1.025 (1.001-1.035); Squamous Epithelial Cell Urine Rare /hpf (Few)
[2021-01-26 22:59] VITALS: BP 111/63; PULSE 90; RESP 16; TEMP 36.8; O2SAT 93; BMI 24.5
[2021-01-26] MEDS: SODIUM CHLORIDE 0.9% IV 1,000 ML 125 ML IV CONT (23:00)
[2021-01-27] MEDS: DEXTROSE 5%/0.45% SOD CHL 1,000 ML 75 ML IV CONT (03:33)
[2021-01-27 05:00] VITALS: BP 105/57; PULSE 84; RESP 20; TEMP 36.1; O2SAT 91
[2021-01-27 08:33] VITALS: RESP 20; O2SAT 92
--- NOTE | 2021-01-27 09:17 | PM.IMPN ---
Progress Note: A&P Assessment and Plan (1) SBO (small bowel obstruction): Code(s): K56.609 - Unspecified intestinal obstruction, unspecified as to partial versus complete obstruction Status: Acute Assessment and Plan: Patient came in with nausea, vomiting, diarrhea and abdominal pain. AST and alk-phos were elevated at the acute rehab facility prior to arrival. Also showing signs of dehydration with a creatinine 1.6, BUN 73. Abdominal x-ray on arrival to the ER showed Dilated small bowel loops, compatible with small bowel obstruction. Patient was placed NPO ER tried to place NG tube but was unsuccessful Currently is resting comfortably without any nausea, vomiting, abdominal pain at this time. He does report passing gas. CT abdomen pelvis has been ordered for further evaluation General surgery has been consulted in there input is greatly appreciated Continue monitoring. Keep NPO at this time. IV fluids for hydration. IV antiemetics and pain meds as needed. (2) Aspiration pneumonia due to vomit: Code(s): J69.0 - Pneumonitis due to inhalation of food and vomit Status: Acute Assessment and Plan: Patient presented with leukocytosis at 14,000, elevated neutrophils and 8% bands and on chest x-ray he has findings of bibasilar airspace disease, compatible with pneumonia and aspiration pneumonia in the right setting. Patient had been having nausea, vomiting so he could have aspirated as well as choking on a pill prior to arrival. Patient was placed on IV Unasyn for treatment of aspiration pneumonia Will leave NPO at this time due to small-bowel obstruction Prior to feeding the patient again we will have speech therapy do a bedside evaluation 1 small-bowel obstruction improves Blood cultures pending Patient is resting comfortably at 91% on room air. Will obtain CT Chest for further evaluation Continue monitoring. (3) GERD (gastroesophageal reflux disease): Qualifiers: Esophagitis presence: esophagitis presence not specified Qualified Code(s): K21.9 - Gastro-esophageal reflux disease without esophagitis Code(s): K21.9 - Gastro-esophageal reflux disease without esophagitis Status: Chronic Assessment and Plan: Continue with PPI IV twice daily (4) CVA (cerebral vascular accident): Code(s): I63.9 - Cerebral infarction, unspecified Status: Acute Assessment and Plan: Stable without any new residual defects. (5) Parkinson disease: Code(s): G20 - Parkinson's disease Status: Acute Assessment and Plan: Will have to hold his Parkinson's medications at this time due to small-bowel obstruction. (6) MONIQUE (acute kidney injury): Code(s): N17.9 - Acute kidney failure, unspecified Status: Acute Assessment and Plan: Most likely due to acute dehydration from nausea, vomiting, diarrhea as well as underlying infection. Continue with IV fluid hydration at this time Recheck labs this morning Continue monitoring. Time Spent With Patient Time with patient: 25 - 35 minutes Subjective Date/time seen: 01/27/21 09:17 Interval history: Date of service 01/27/2021: Patient states he has become weak over the last few days along with associated nausea could vomiting, diarrhea and abdominal pain. Patient also reports having a few episode where he is swallowing and has a coughing fit. He has not had a cough otherwise reported or shortness of breath. Patient also reports chills, denies fever. Denies chest pain, lightheadedness, dizziness, leg swelling, calf pain, or any other symptoms at this time. Review of Systems Review of Systems: All systems
[2021-01-27 09:29] LABS: Basophils Percent Auto 0.1 % (0.2-1.2); Eosinophils Percent Auto 0.1 % (0-4.4); Hematocrit 28.5 % (42.0-52.0); Hemoglobin 9.3 g/dL (14.0-18.0); Immature Granulocyte Absolute 0.03 K/mm3 (0.00-0.031); Immature Granulocyte Percent A 0.3 % (0-0.5); Lymphocytes Absolute Auto 0.61 K/mm3 (0.9-3.2); Lymphocytes Percent Auto 5.6 % (18.3-44.2); Mean Corpuscular HGB Conc 32.6 g/dl (32-36); Mean Corpuscular Volume 101.1 fl (80-100); Mean Platelet Volume 8.8 fl (7.4-10.4); Monocytes Percent Auto 8.9 % (2.6-8.5); Neutrophils Absolute Auto 9.2 K/mm3 (1.3-6.7); Platelet Count Result 583 k/mm3 (150-375); Red Blood Count 2.82 M/mm3 (4.6-6.20); White Blood Count 10.8 K/mm3 (4.5-10.0)
[2021-01-27 09:44] LABS: Alanine Aminotransferase 8 U/L (4-50); Albumin Level 2.6 g/dL (3.5-5.1); Alkaline Phosphatase 199 U/L (38-126); Anion Gap 6 mmol/L (8-16); Aspartate Amino Transferase 22 U/L (17-59); Bilirubin,Total 0.4 mg/dL (0.2-1.3); Blood Urea Nitrogen 64 mg/dL (9-20); Calcium 7.7 mg/dL (8.4-10.2); Carbon Dioxide 24 mmol/L (22-30); Chloride 108 mmol/L (98-107); Estimated CRCL calculation 43 ml/min; Estimated Glomerular Filt Rate 54; Glucose 117 mg/dL (65-110); Magnesium 2.9 mg/dL (1.6-2.3); Potassium 2.8 mmol/L (3.4-5.0); Sodium 138 mmol/L (137-145)
[2021-01-27] MEDS: AMPICILLIN SULB 3 GM/NS 100 ML 3 GM/100 ML VIAL IVPB ×3 (09:58→20:54)
[2021-01-27] MEDS: PANTOPRAZOLE SODIUM IV 40 MG VIAL IV PUSH ×2 (10:39→20:54)
--- NOTE | 2021-01-27 11:20 | PM.CNGS ---
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 The patient has had multiple episodes of small-bowel obstruction secondary to small bowel mass. Given his medical issues, including recent hip surgery, these obstructions have been treated conservatively. The patient had been doing well in rehab prior to this most recent episode. At this point, the patient and his would like to explore surgical options given the multiple episodes of obstructions. Review of Systems Review of Systems: ROS unobtainable: Yes unobtainable due to medical condition PMFSH Past Medical History Medical History Abnormal CT of the abdomen (~05/03/20) 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 Amblyopia of left eye Cerebrovascular accident Mild right-sided deficits, mainly in the leg. Chronic interstitial lung disease Noted on imaging though patient is asymptomatic he reports multiple occupational exposures. 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 Esophageal stricture Status post dilatation. Gastroesophageal reflux disease Hyperlipidemia Hypertension Kidney stone Osteoporosis Parkinsons disease Pelvis fracture Prostate cancer Status post open prostatectomy. Skin cancer Surgical History Surgical History History of eye surgery History of prostatectomy History of tonsillectomy Family History Family History Sibling Breast cancer Mother Heart disease Social History Social History Social History: Surrogate decision maker: Marni Bernabe, . The patient retired from [employer]. The patient has 2 children. He is a lifelong nonsmoker. He does not use any alcohol marijuana or illicit drugs. Code status: Full code. Smoking status: Never smoker Second hand tobacco smoke exposure: Yes Alcohol intake: unknown Substance use: never Substance use type: does not use Additional living arrangements comments: The patient lives with his in [place]. Additional occupation/education comments: Retired. Spiritual care concerns: No Meds Home Medications and Allergies Home Medications Medication Instructions Recorded Confirmed Type carbidopa-levodopa [Sinemet] 3 tablet PO QID@,,,01/21/19 01/26/21 History pramipexole [Mirapex] 0.5 mg PO QID@,,,01/21/19 01/26/21 History aspirin 81 mg PO DAILY 10/05/20 01/26/21 History escitalopram oxalate [Lexapro] 20 mg PO DAILY 10/05/20 01/26/21 History magnesium hydroxide [Milk of 60 ml PO DAILY 10/05/20 01/26/21 History Magnesia] mineral oil 60 ml PO DAILY 10/05/20 01/26/21 History pantoprazole 40 mg PO HS PRN 10/05/20 01/26/21 History trazodone 50
[2021-01-27 11:25] VITALS: BP 110/66; PULSE 80; RESP 16; TEMP 36.5; O2SAT 91
[2021-01-27 13:52] VITALS: BP 111/63; PULSE 92; RESP 16; TEMP 35.9; O2SAT 93
[2021-01-27 16:07] LABS: Potassium 3.1 mmol/L (3.4-5.0)
[2021-01-27 18:40] VITALS: BP 115/71; PULSE 103; RESP 16; TEMP 37; O2SAT 92
[2021-01-27 20:00] VITALS: BP 119/73; PULSE 100; RESP 16; TEMP 36.9; O2SAT 94
[2021-01-28] VITALS: BP 147/84; PULSE 92; RESP 18; TEMP 36.7; O2SAT 97
[2021-01-28] MEDS: AMPICILLIN SULB 3 GM/NS 100 ML 3 GM/100 ML VIAL IVPB ×4 (03:09→20:29)
[2021-01-28 04:00] VITALS: BP 142/82; PULSE 101; RESP 18; TEMP 36.9; O2SAT 97
[2021-01-28 05:34] LABS: Basophils Absolute Auto 0.1 K/mm3 (0.0-0.1); Basophils Percent Auto 0.8 % (0.2-1.2); Eosinophils Percent Auto 0.1 % (0-4.4); Hematocrit 29.4 % (42.0-52.0); Hemoglobin 9.7 g/dL (14.0-18.0); Immature Granulocyte Absolute 0.04 K/mm3 (0.00-0.031); Immature Granulocyte Percent A 0.4 % (0-0.5); Lymphocytes Percent Auto 6.8 % (18.3-44.2); Mean Corpuscular Hemoglobin 32.3 pg (26-34); Monocytes Percent Auto 9.6 % (2.6-8.5); Neutrophils Absolute Auto 8.5 K/mm3 (1.3-6.7); Neutrophils Percent Auto 82.3 % (45.5-73.1); Platelet Count Result 618 k/mm3 (150-375); Red Cell Distribution Width 15.1 % (11.5-14.5); White Blood Count 10.4 K/mm3 (4.5-10.0)
[2021-01-28 05:47] LABS: Alanine Aminotransferase 11 U/L (4-50); Albumin Level 2.6 g/dL (3.5-5.1); Alkaline Phosphatase 210 U/L (38-126); Anion Gap 8 mmol/L (8-16); Aspartate Amino Transferase 24 U/L (17-59); Bilirubin,Total 0.5 mg/dL (0.2-1.3); Blood Urea Nitrogen 59 mg/dL (9-20); Carbon Dioxide 24 mmol/L (22-30); Chloride 114 mmol/L (98-107); Estimated CRCL calculation 46 ml/min; Estimated Glomerular Filt Rate 59; Glucose 123 mg/dL (65-110); Potassium 3.2 mmol/L (3.4-5.0); Sodium 146 mmol/L (137-145)
[2021-01-28 08:00] VITALS: BP 131/69; PULSE 104; RESP 16; TEMP 36.6; O2SAT 91
--- NOTE | 2021-01-28 08:08 | PM.PNGS ---
Progress Note: A&P Assessment and Plan (1) Small bowel mass: Code(s): K63.89 - Other specified diseases of intestine Status: Acute Assessment and Plan: multiple episodes of obstruction, cont clears, plan for OR tomorrow (2) Aspiration pneumonia due to vomit: Code(s): J69.0 - Pneumonitis due to inhalation of food and vomit Status: Acute Assessment and Plan: stable, oxygenating well on RA, abx Subjective Subjective Date/Time Seen: 01/28/21 08:08 no acute issues this am, hawa clears, +bowel fxn Review of Systems Review of Systems: All systems reviewed & are unremarkable except as noted in HPI and below Exam Const: General: cooperative, comfortable and no acute distress Nutritional Appearance: average body habitus Resp: Effort & Inspection: normal respiratory effort Auscultation: diminished lung sounds Cardio: Rate: regular rate Rhythm: regular rhythm GI: Inspection: normal to inspection and distended GI Palp: Yes Soft to palpation and No Tenderness to palpation present (GI) Objective Data Vital Signs Vital Signs: Vital Signs - 24 hr 01/27/21 08:33 01/27/21 11:25 01/27/21 13:52 Temperature 36.5 C 35.9 C L Pulse Rate 80 92 Respiratory Rate 20 16 16 Blood Pressure 110/66 111/63 Pulse Oximetry 92 91 93 01/27/21 18:40 01/27/21 20:00 01/28/21 00:00 Temperature 37.0 C 36.9 C 36.7 C Pulse Rate 103 H 100 92 Respiratory Rate 16 16 18 Blood Pressure 115/71 119/73 147/84 H Pulse Oximetry 92 94 97 01/28/21 04:00 Temperature 36.9 C Pulse Rate 101 H Respiratory Rate 18 Blood Pressure 142/82 H Pulse Oximetry 97 Intake/Output Intake/Output: Intake & Output 01/25/21 01/26/21 01/27/21 01/28/21 23:59 23:59 23:59 23:59 Intake Total 2049 1579 700 Output Total 2074 Balance 2049 -495 700 Meds/Results Medications: Active Medications Generic Name Dose Route Start Last Admin Trade Name Freq PRN Reason Stop Dose Admin Acetaminophen 650 mg 01/28/21 07:34 Acetaminophen 325 Mg Tablet PO Q4H PRN Mild Pain (Scale Score 1-3) Hydrocodone Bitart/Acetaminophen 1 tab 01/28/21 07:34 Hydrocodone/Acetaminophen (*Crx) 7.5-325 Mg Tablet PO Q4-6H PRN Pain 4-5 Bisacodyl 10 mg 01/28/21 07:34 Bisacodyl 10 Mg Suppository RECTAL DAILY PRN constipation Carbidopa/Levodopa 3 tablet 01/28/21 07:35 Carbidopa/Levodopa 25/100 Mg Tablet PO QID@,,, [facility] Enoxaparin Sodium 40 mg 01/28/21 09:00 Enoxaparin 40 Mg/0.4 Ml Syringe SUB-Q DAILY [facility] Escitalopram Oxalate 20 mg 01/28/21 09:00 Escitalopram Oxalate 10 Mg Tablet PO DAILY [facility] Ampicillin Sodium/Sulbactam Sodium 3 gm in 100 mls @ 200 mls/hr 01/27/21 09:00 01/28/21 03:39 Unasyn 3 Gm/Ns 100 Ml IVPB Infused Q6H [facility] Infusion Acetaminophen 1,000 mg in 100 mls @ 400 mls/hr 01/27/21 13:35 Ofirmev 1,000 Mg Ivpb IVPB 01/28/21 09:28 Q6H PRN Pain Rated 1-5 Lactated Ringer's 1,000 mls @ 75 mls/hr 01/28/21 07:30 Lr - Lactated Ringers Iv IV CONT .[id number] [facility] Morphine Sulfate 2 mg 01/27/21 09:29 Morphine Sulfate (*Crx) 2 Mg/Ml Inj IV PUSH Q4H PRN Pain Rated 6-10 Ondansetron HCl 4 mg 01/27/21 09:29 Ondansetron Inj 4 Mg/2 Ml Vial IV PUSH Q6H PRN Nausea And Vomiting Pantoprazole Sodium 40 mg 01/27/21 09:20 01/27/21 20:54 Pantoprazole Sodium Iv 40 Mg Vial IV PUSH 40 mg Q12HR [facility] Administration Pramipexole Dihydrochloride 0.5 mg 01/28/21 07:35 Pramipexole 0.5 Mg Tablet PO QID@07,,, [facility] Pseudoephedrine HCl 15 mg 01/28/21 09:00 Pseudoephedrine Hcl 30 Mg Tablet PO DAILY [facility] Trazodone HCl 50 mg 01/28/21 21:00 Trazodone Hcl 50 Mg Tablet PO [facility] Radiology Results: ITS Impressions Chest X-Ray 01/26/21 19:46 Impression: 1: Bibasilar airspace disease, compatible with pneumonia. Abdomen X-Ray 01/27/21 08:20 IMPRESSION:
[2021-01-28] MEDS: POTASSIUM CHLORIDE 20 MEQ TABLET 40 MEQ PO (08:21)
[2021-01-28] MEDS: LACTATED RINGERS 1,000 ML 75 ML IV CONT (08:22)
[2021-01-28 08:23] VITALS: RESP 16; O2SAT 93
[2021-01-28] MEDS: CARBIDOPA/LEVODOPA 25/100 MG TABLET 3 TABLET PO ×4 (08:23→19:32)
[2021-01-28] MEDS: ESCITALOPRAM OXALATE 10 MG TABLET 20 MG PO (08:23)
[2021-01-28] MEDS: ENOXAPARIN 40 MG/0.4 ML SYRINGE SUB-Q (08:23)
[2021-01-28] MEDS: PRAMIPEXOLE 0.5 MG TABLET PO ×4 (08:23→19:33)
[2021-01-28] MEDS: PANTOPRAZOLE SODIUM IV 40 MG VIAL IV PUSH ×2 (08:24→20:29)
--- NOTE | 2021-01-28 08:25 | WPDANESEPP ---
Anes - Eval Pre Procedure Procedure: Exploratory Laparotomy, Possible Bowel Resection Date/Time: 01/28/21 08:25 Surgeon: Naveed Richardson Preop Diagnosis: Small Bowel Obstruction secondary to mass Pre Op Diagnosis: small bowel obstruction, pneumonia Patient Data Age: 75 Gender: M Height: 1.73 m Weight: 73 kg Last Vital Signs Temp 98.4 F 01/28/21 04:00 Pulse 101 H 01/28/21 04:00 Resp 18 01/28/21 04:00 BP 142/82 H 01/28/21 04:00 Pulse Ox 97 01/28/21 04:00 Allergies Allergy/AdvReac Type Severity Reaction Status Date / Time No Known Allergies Allergy Verified 01/26/21 23:25 Home Medications Medication Instructions Recorded Confirmed Type carbidopa-levodopa [Sinemet] 3 tablet PO QID@,,,01/21/19 01/26/21 History pramipexole [Mirapex] 0.5 mg PO QID@,,,01/21/19 01/26/21 History aspirin 81 mg PO DAILY 10/05/20 01/26/21 History escitalopram oxalate [Lexapro] 20 mg PO DAILY 10/05/20 01/26/21 History magnesium hydroxide [Milk of 60 ml PO DAILY 10/05/20 01/26/21 History Magnesia] mineral oil 60 ml PO DAILY 10/05/20 01/26/21 History pantoprazole 40 mg PO HS PRN 10/05/20 01/26/21 History trazodone 50 mg PO HS 10/05/20 01/26/21 History bisacodyl 10 mg RECTAL DAILY PRN #12 ea 01/13/21 01/26/21 Rx acetaminophen 650 mg PO Q4H PRN 01/26/21 01/26/21 History docusate sodium 100 mg PO BID 01/26/21 01/26/21 History fondaparinux [Arixtra] 2.5 mg SUBCUT DAILY 01/26/21 01/26/21 History hydrocodone-acetaminophen [[place]] 1 tablet PO Q4-6H PRN 01/26/21 01/26/21 History pseudoephedrine HCl [Suphedrin] 15 mg PO DAILY 01/26/21 01/26/21 History Laboratory Tests 1101/27/21 01/27/21 09:09 09:09 15:54 WBC 10.8 K/mm3 H K/mm3 (4.5-10.0) RBC 2.82 M/mm3 L M/mm3 (4.6-6.20) Hgb 9.3 g/dL L g/dL (14.0-18.0) Hct 28.5 % L % (42.0-52.0) MCV 101.1 fl H fl (80-100) MCH 33.0 pg pg (26-34) MCHC 32.6 g/dl g/dl (32-36) RDW 15.0 % H % (11.5-14.5) Plt Count 583 k/mm3 H k/mm3 (150-375) MPV 8.8 fl fl (7.4-10.4) Immature Gran % (Auto) 0.3 % % (0-0.5) Neut % (Auto) 85.0 % H % (45.5-73.1) Lymph % (Auto) 5.6 % L % (18.3-44.2) Dolores % (Auto) 8.9 % H % (2.6-8.5) Eos % (Auto) 0.1 % % (0-4.4) Baso % (Auto) 0.1 % L % (0.2-1.2) Lymph # (Auto) 0.61 K/mm3 L K/mm3 (0.9-3.2) Dolores # (Auto) 1.0 K/mm3 H K/mm3 (0.1-0.6) Eos # (Auto) 0.0 K/mm3 K/mm3 (0-0.3) Baso # (Auto) 0.0 K/mm3 K/mm3 (0.0-0.1) Abs Immat Gran (auto) 0.03 K/mm3 K/mm3 (0.00-0.031) Absolute Neuts (auto) 9.2 K/mm3 H K/mm3 (1.3-6.7) Absolute Nucleated RBC 0.0 K/mm3 K/mm3 (0.0-0.012) Nucleated RBC % 0.0 % % (0.0-0.2) Sodium 138 mmol/L mmol/L (137-145) Potassium 2.8 mmol/L L* mmol/L 3.1 mmol/L L mmol/L (3.4-5.0) (3.4-5.0) Chloride 108 mmol/L H mmol/L (98-107) Carbon Dioxide 24 mmol/L mmol/L (22-30) Anion Gap 6 mmol/L L mmol/L (8-16) BUN 64 mg/dL H mg/dL (9-20) Creatinine 1.30 mg/dL mg/dL (0.7-1.3) Estim Creat Clear Calc 43 ml/min ml/min Estimated GFR 54 L (59 - ) Glucose 117 mg/dL H mg/dL (65-110) Calcium 7.7 mg/dL L mg/dL (8.4-10.2) Magnesium 2.9 mg/dL H mg/dL (1.6-2.3) Total Bilirubin 0.4 mg/dL mg/dL (0.2-1.3) AST 22 U/L U/L (17-59) ALT 8 U/L U/L (4-50) Alkaline Phosphatase 199 U/L H U/L (38-126) Total Protein 5.0 g/dL L g/dL (6.3-8.2) Albumin 2.6 g/dL L g/dL (3.5-5.1) 01/28/21 01/28/21 04:47 04:47 WBC 10.4 K/mm3 H K/mm3 (4.5-10.0) RBC 3.00 M/mm3 L M/mm3 (4.6-6.20) Hgb 9.7 g/dL L g/dL (14.0-18.0) Hct 29.4 % L % (42.0-52.0) MCV 98.0 fl fl
[2021-01-28] MEDS: PSEUDOEPHEDRINE HCL 30 MG TABLET 15 MG PO (08:34)
--- NOTE | 2021-01-28 09:01 | PM.IMPN ---
Progress Note: A&P Assessment and Plan (1) SBO (small bowel obstruction): Code(s): K56.609 - Unspecified intestinal obstruction, unspecified as to partial versus complete obstruction Status: Acute Assessment and Plan: Patient came in with nausea, vomiting, diarrhea and abdominal pain. AST and alk-phos were elevated at the acute rehab facility prior to arrival. Also showing signs of dehydration with a creatinine 1.6, BUN 73. Abdominal x-ray on arrival to the ER showed Dilated small bowel loops, compatible with small bowel obstruction. ER tried to place NG tube but was unsuccessful Currently is resting comfortably without any nausea, vomiting, he is having 6/10 abdominal pain. He continues to have some diarrhea and passing gas. CT abdomen pelvis showed Small bowel obstruction with abnormal thickening of the small bowel as well as mesenteric edema and mesenteric lymphadenopathy. No definite transition site identified. General surgery has been consulted and based on the patient recurrent small-bowel obstructions he has plans to undergo exploratory surgery tomorrow. Patient will be placed NPO after midnight. Continue monitoring. Keep NPO at this time. IV fluids for hydration. IV antiemetics and pain meds as needed. (2) Aspiration pneumonia due to vomit: Code(s): J69.0 - Pneumonitis due to inhalation of food and vomit Status: Acute Assessment and Plan: Patient presented with leukocytosis at 14,000, elevated neutrophils and 8% bands and on chest x-ray he has findings of bibasilar airspace disease, compatible with pneumonia and aspiration pneumonia in the right setting. Patient had been having nausea, vomiting so he could have aspirated as well as choking on a pill prior to arrival. CT chest showed extensive airspace disease of the mid and lower lungs bilaterally, consistent with pneumonia. Patient was placed on IV Unasyn for treatment of aspiration pneumonia GI has placed the patient on clear liquids. Speech therapy evaluated the patient and he tolerated everything well, except NO straws Since the patient will be undergoing a major abdominal surgery and most likely have an NG tube in for a few days, we may need to speech therapy to redo a bedside prior to him eating again due to his risks with Parkinson's, weakness, infection and undergoing surgery Blood cultures are negative today Patient is resting comfortably at 97% on room air. Continue monitoring. (3) GERD (gastroesophageal reflux disease): Qualifiers: Esophagitis presence: esophagitis presence not specified Qualified Code(s): K21.9 - Gastro-esophageal reflux disease without esophagitis Code(s): K21.9 - Gastro-esophageal reflux disease without esophagitis Status: Chronic Assessment and Plan: Continue with PPI IV twice daily (4) CVA (cerebral vascular accident): Code(s): I63.9 - Cerebral infarction, unspecified Status: Acute Assessment and Plan: Stable without any new residual defects. (5) Parkinson disease: Code(s): G20 - Parkinson's disease Status: Acute Assessment and Plan: Since he is on clears I will restart his Parkinson's medications. (6) MONIQUE (acute kidney injury): Code(s): N17.9 - Acute kidney failure, unspecified Status: Acute Assessment and Plan: Most likely due to acute dehydration from nausea, vomiting, diarrhea as well as underlying infection. Creatinine on arrival was 1.6, improved to 1.2, still with elevated BUN so will continue some light IV fluid hydration. Continue monitoring. (7) Hypokalemia: Code(s): E87.6 - Hypokalemia Status: Acute
--- NOTE | 2021-01-28 09:20 | PCSTNOTE ---
Please refer to the Bedside Swallow Evaluation in the EMR. Please note, silent aspiration cannot be ruled out at bedside.
[2021-01-28 13:28] LABS: Magnesium 3.1 mg/dL (1.6-2.3); Potassium 3.6 mmol/L (3.4-5.0)
[2021-01-28] MEDS: HYDROcodone/acetaminophen (*CRX) 7.5-325 MG TABLET 1 TAB PO (14:46)
[2021-01-28 17:40] VITALS: BP 125/78; PULSE 102; RESP 16; TEMP 36.4; O2SAT 91
[2021-01-28 20:00] VITALS: BP 147/83; PULSE 98; RESP 16; TEMP 36.9; O2SAT 95
[2021-01-28] MEDS: traZODone HCL 50 MG TABLET PO (20:30)
[2021-01-29] VITALS (7 sets, daily range): BP systolic 118–136; BP diastolic 62–87; PULSE 95–115; RESP 16–18; TEMP 36.1–36.9; O2SAT 92–97; BMI 24.5
[2021-01-29] MEDS: LACTATED RINGERS 1,000 ML 75 ML IV CONT ×2 (00:01→14:06)
[2021-01-29] MEDS: AMPICILLIN SULB 3 GM/NS 100 ML 3 GM/100 ML VIAL IVPB ×4 (03:02→20:46)
[2021-01-29 06:01] LABS: Basophils Absolute Auto 0.1 K/mm3 (0.0-0.1); Basophils Percent Auto 0.6 % (0.2-1.2); Eosinophils Percent Auto 0.1 % (0-4.4); Hematocrit 29.4 % (42.0-52.0); Hemoglobin 9.4 g/dL (14.0-18.0); Immature Granulocyte Absolute 0.11 K/mm3 (0.00-0.031); Immature Granulocyte Percent A 0.8 % (0-0.5); Lymphocytes Absolute Auto 0.88 K/mm3 (0.9-3.2); Lymphocytes Percent Auto 6.5 % (18.3-44.2); Mean Corpuscular Hemoglobin 32.1 pg (26-34); Mean Corpuscular Volume 100.3 fl (80-100); Mean Platelet Volume 9.1 fl (7.4-10.4); Monocytes Absolute Auto 1.2 K/mm3 (0.1-0.6); Monocytes Percent Auto 8.4 % (2.6-8.5); Neutrophils Absolute Auto 11.4 K/mm3 (1.3-6.7); Neutrophils Percent Auto 83.6 % (45.5-73.1); Platelet Count Result 562 k/mm3 (150-375); Red Blood Count 2.93 M/mm3 (4.6-6.20); Red Cell Distribution Width 15.4 % (11.5-14.5); White Blood Count 13.6 K/mm3 (4.5-10.0)
[2021-01-29] MEDS: CARBIDOPA/LEVODOPA 25/100 MG TABLET 3 TABLET PO ×4 (06:19→18:59)
[2021-01-29 06:21] LABS: Alanine Aminotransferase 6 U/L (4-50); Albumin Level 2.7 g/dL (3.5-5.1); Alkaline Phosphatase 212 U/L (38-126); Anion Gap 4 mmol/L (8-16); Aspartate Amino Transferase 22 U/L (17-59); Bilirubin,Total 0.5 mg/dL (0.2-1.3); Blood Urea Nitrogen 42 mg/dL (9-20); Calcium 8.3 mg/dL (8.4-10.2); Carbon Dioxide 24 mmol/L (22-30); Chloride 117 mmol/L (98-107); Estimated CRCL calculation 55 ml/min; Estimated Glomerular Filt Rate > 60; Glucose 104 mg/dL (65-110); Potassium 3.4 mmol/L (3.4-5.0); Sodium 145 mmol/L (137-145)
[2021-01-29] MEDS: PRAMIPEXOLE 0.5 MG TABLET PO ×4 (06:22→18:59)
--- NOTE | 2021-01-29 06:58 | PM.IMPN ---
Progress Note: A&P Assessment and Plan (1) SBO (small bowel obstruction): Code(s): K56.609 - Unspecified intestinal obstruction, unspecified as to partial versus complete obstruction Status: Acute Assessment and Plan: Patient came in with nausea, vomiting, diarrhea and abdominal pain. AST and alk-phos were elevated at the acute rehab facility prior to arrival. Also showing signs of dehydration with a creatinine 1.6, BUN 73. Abdominal x-ray on arrival to the ER showed Dilated small bowel loops, compatible with small bowel obstruction. ER tried to place NG tube but was unsuccessful Currently is resting comfortably without any nausea, vomiting, he is having 3-4/10 abdominal pain. He is having more formed stool today. CT abdomen pelvis showed Small bowel obstruction with abnormal thickening of the small bowel as well as mesenteric edema and mesenteric lymphadenopathy. No definite transition site identified. General surgery has been consulted and based on the patient recurrent small-bowel obstructions he has plans to undergo exploratory surgery today with Dr. Lucio. NPO at this time. Continue monitoring. IV fluids for hydration. IV antiemetics and pain meds as needed. (2) Aspiration pneumonia due to vomit: Code(s): J69.0 - Pneumonitis due to inhalation of food and vomit Status: Acute Assessment and Plan: Patient presented with leukocytosis at 14,000, elevated neutrophils and 8% bands and on chest x-ray he has findings of bibasilar airspace disease, compatible with pneumonia and aspiration pneumonia in the right setting. Patient had been having nausea, vomiting so he could have aspirated as well as choking on a pill prior to arrival. CT chest showed extensive airspace disease of the mid and lower lungs bilaterally, consistent with pneumonia. Patient was placed on IV Unasyn for treatment of aspiration pneumonia Speech therapy evaluated the patient and he tolerated everything well, except NO straws Since the patient will be undergoing a major abdominal surgery and most likely have an NG tube in for a few days, we may need to speech therapy to redo a bedside prior to him eating again due to his risks with Parkinson's, weakness, infection and undergoing surgery Blood cultures are negative to date Patient is resting comfortably at 94% on room air. Continue monitoring. (3) GERD (gastroesophageal reflux disease): Qualifiers: Esophagitis presence: esophagitis presence not specified Qualified Code(s): K21.9 - Gastro-esophageal reflux disease without esophagitis Code(s): K21.9 - Gastro-esophageal reflux disease without esophagitis Status: Chronic Assessment and Plan: Continue with PPI IV twice daily (4) CVA (cerebral vascular accident): Code(s): I63.9 - Cerebral infarction, unspecified Status: Acute Assessment and Plan: Stable without any new residual defects. (5) Parkinson disease: Code(s): G20 - Parkinson's disease Status: Acute Assessment and Plan: Since he is on clears I will restart his Parkinson's medications. (6) MONIQUE (acute kidney injury): Code(s): N17.9 - Acute kidney failure, unspecified Status: Acute Assessment and Plan: Most likely due to acute dehydration from nausea, vomiting, diarrhea as well as underlying infection. Creatinine on arrival was 1.6, improved to 1.0, will continue some light IV fluid hydration. Continue monitoring. (7) Hypokalemia: Code(s): E87.6 - Hypokalemia Status: Acute Assessment and Plan: Hypokalemia at 3.4, will give IV potassium 40 mEQ prior to surgery. Magnesium was elevate
[2021-01-29] MEDS: PANTOPRAZOLE SODIUM IV 40 MG VIAL IV PUSH ×2 (08:14→20:46)
[2021-01-29] MEDS: ESCITALOPRAM OXALATE 10 MG TABLET 20 MG PO (08:14)
--- NOTE | 2021-01-29 11:27 | PM.PNGS ---
Progress Note: A&P Assessment and Plan (1) Small bowel mass: Code(s): K63.89 - Other specified diseases of intestine Status: Acute Assessment and Plan: plan for OR tomorrow at 1330, clears for now, NPO after MN Subjective Subjective Date/Time Seen: 01/29/21 11:27 Pt feels ok, no acute issues, hawa clears Review of Systems Review of Systems: All systems reviewed & are unremarkable except as noted in HPI and below Exam Const: General: cooperative, comfortable and no acute distress Chest: Chest palpation & inspection: normal inspection of the chest Resp: Effort & Inspection: normal respiratory effort Auscultation: clear to auscultation bilaterally Cardio: Jugular venous distension: no JVD Rate: regular rate Rhythm: regular rhythm GI: Inspection: normal to inspection and distended GI Palp: Yes Soft to palpation, No Tenderness to palpation present (GI), No Guarding due to palpation present (GI) and No Rigid due to palpation Objective Data Vital Signs Vital Signs: Vital Signs - 24 hr 01/28/21 17:40 01/28/21 20:00 01/29/21 00:00 Temperature 36.4 C 36.9 C 36.6 C Pulse Rate 102 H 98 103 H Respiratory Rate 16 16 18 Blood Pressure 125/78 147/83 H 136/82 Pulse Oximetry 91 95 97 01/29/21 04:00 01/29/21 08:00 Temperature 36.7 C 36.9 C Pulse Rate 95 99 Respiratory Rate 16 16 Blood Pressure 131/76 128/82 Pulse Oximetry 94 93 Intake/Output Intake/Output: Intake & Output 01/26/21 01/27/21 01/28/21 01/29/21 23:59 23:59 23:59 23:59 Intake Total 2049 1580 2360 1100 Output Total 2075 600 500 Balance 2050 -495 1760 600 Meds/Results Medications: Active Medications Generic Name Dose Route Start Last Admin Trade Name Freq PRN Reason Stop Dose Admin Acetaminophen 650 mg 01/28/21 07:34 Acetaminophen 325 Mg Tablet PO Q4H PRN Mild Pain (Scale Score 1-3) Hydrocodone Bitart/Acetaminophen 1 tab 01/28/21 07:34 01/28/21 14:46 Hydrocodone/Acetaminophen (*Crx) 7.5-325 Mg Tablet PO 1 tab Q4-6H PRN Administration Pain 4-5 Bisacodyl 10 mg 01/28/21 07:34 Bisacodyl 10 Mg Suppository RECTAL DAILY PRN constipation Carbidopa/Levodopa 3 tablet 01/28/21 07:35 01/29/21 10:58 Carbidopa/Levodopa 25/100 Mg Tablet PO 3 tablet QID@07,,, ANIBAL Administration Enoxaparin Sodium 40 mg 01/28/21 09:00 01/29/21 08:10 Enoxaparin 40 Mg/0.4 Ml Syringe SUB-Q Not Given DAILY ANIBAL Escitalopram Oxalate 20 mg 01/28/21 09:00 01/29/21 08:14 Escitalopram Oxalate 10 Mg Tablet PO 20 mg DAILY ANIBAL Administration Ampicillin Sodium/Sulbactam Sodium 3 gm in 100 mls @ 200 mls/hr 01/27/21 09:00 01/29/21 10:53 Unasyn 3 Gm/Ns 100 Ml IVPB 200 mls/hr Q6H ANIBAL Administration Lactated Ringer's 1,000 mls @ 75 mls/hr 01/28/21 07:30 01/29/21 10:57 Lr - Lactated Ringers Iv IV CONT 0 mls/hr .[id number] ANIBAL Infusion Lactated Ringer's 1,000 mls @ 30 mls/hr 01/29/21 09:00 Lr - Lactated Ringers Iv IV CONT .Q24H ANIBAL Morphine Sulfate 2 mg 01/27/21 09:29 Morphine Sulfate (*Crx) 2 Mg/Ml Inj IV PUSH Q4H PRN Pain Rated 6-10 Ondansetron HCl 4 mg 01/27/21 09:29 Ondansetron Inj 4 Mg/2 Ml Vial IV PUSH Q6H PRN Nausea And Vomiting Pantoprazole Sodium 40 mg 01/27/21 09:20 01/29/21 08:14 Pantoprazole Sodium Iv 40 Mg Vial IV PUSH 40 mg Q12HR ANIBAL Administration Pramipexole Dihydrochloride 0.5 mg 01/28/21 07:35 01/29/21 10:58 Pramipexole 0.5 Mg Tablet PO 0.5 mg QID@07,,, ANIBAL Administration Pseudoephedrine HCl 15 mg 01/28/21 09:00 01/29/21 08:15 Pseudoephedrine Hcl 30 Mg Tablet PO Not Given DAILY ANIBAL Trazodone HCl 50 mg 01/28/21 21:00 01/28/21 20:30 Trazodone Hcl 50 Mg Tablet PO 50 mg HS ANIBAL Administration Radiology Results: ITS Impressions Chest X-Ray 01/26/21 19:46 Impression: 1: Bibasilar airspace disease, compatible with pneumonia. Abdomen/Pel
--- NOTE | 2021-01-29 14:02 | PCOTNOTE ---
Attempted to evaluate, Pt. getting surgery tomorrow. Spoke with hospitalist, who is cancelling orders and will reorder tomorrow.
[2021-01-29] MEDS: HYDROcodone/acetaminophen (*CRX) 7.5-325 MG TABLET 1 TAB PO (14:05)
[2021-01-29] MEDS: traZODone HCL 50 MG TABLET PO (20:46)
[2021-01-30] VITALS (17 sets, daily range): BP systolic 96–130; BP diastolic 59–88; PULSE 65–117; RESP 18–26; TEMP 36.4–37.7; O2SAT 88–97
[2021-01-30] MEDS: AMPICILLIN SULB 3 GM/NS 100 ML 3 GM/100 ML VIAL IVPB ×4 (03:04→20:11)
[2021-01-30] MEDS: LACTATED RINGERS 1,000 ML 75 ML IV CONT (03:07)
[2021-01-30 07:23] LABS: Hemoglobin 9.1 g/dL (14.0-18.0); Mean Corpuscular HGB Conc 32.5 g/dl (32-36); Mean Corpuscular Hemoglobin 32.2 pg (26-34); Mean Corpuscular Volume 98.9 fl (80-100); Mean Platelet Volume 9.4 fl (7.4-10.4); Platelet Count Result 515 k/mm3 (150-375); Red Blood Count 2.83 M/mm3 (4.6-6.20); Red Cell Distribution Width 15.7 % (11.5-14.5); White Blood Count 14.3 K/mm3 (4.5-10.0)
[2021-01-30 07:26] LABS: Alanine Aminotransferase 6 U/L (4-50); Albumin Level 2.4 g/dL (3.5-5.1); Alkaline Phosphatase 192 U/L (38-126); Anion Gap 8 mmol/L (8-16); Aspartate Amino Transferase 24 U/L (17-59); Bilirubin,Total 0.4 mg/dL (0.2-1.3); Blood Urea Nitrogen 37 mg/dL (9-20); Calcium 8.2 mg/dL (8.4-10.2); Carbon Dioxide 23 mmol/L (22-30); Chloride 123 mmol/L (98-107); Estimated CRCL calculation 50 ml/min; Estimated Glomerular Filt Rate > 60; Glucose 108 mg/dL (65-110); Potassium 3.8 mmol/L (3.4-5.0); Sodium 154 mmol/L (137-145)
[2021-01-30 08:30] LABS: Band Neutrophils Percent 7 % (0-6); Lymphocytes Absolute Manual 1.57 K/mm3 (1.1-4.5); Monocytes Absolute Manual 1.14 K/mm3 (0.1-0.90); Monocytes Percent Manual 8 % (3-9); Neutrophils Absolute Manual 11.58 K/mm3 (1.3-6.7); Neutrophils Percent Manual 74 % (46-73); Nucleated Red Blood Cells 1 %; Total Cells Counted 100
[2021-01-30 08:31] LABS: Platelet Estimate Increased (Adequate)
[2021-01-30] MEDS: PANTOPRAZOLE SODIUM IV 40 MG VIAL IV PUSH ×2 (08:47→22:22)
[2021-01-30] MEDS: MORPHINE SULFATE (*CRX) 2 MG/ML INJ IV PUSH (10:28)
[2021-01-30] MEDS: PRAMIPEXOLE 0.5 MG TABLET PO (12:00)
[2021-01-30] MEDS: CARBIDOPA/LEVODOPA 25/100 MG TABLET 3 TABLET PO (12:00)
[2021-01-30] MEDS: ESCITALOPRAM OXALATE 10 MG TABLET 20 MG PO (12:00)
--- NOTE | 2021-01-30 12:19 | PM.IMPN ---
Progress Note: A&P Assessment and Plan (1) SBO (small bowel obstruction): Code(s): K56.609 - Unspecified intestinal obstruction, unspecified as to partial versus complete obstruction Status: Acute Assessment and Plan: Patient came in with nausea, vomiting, diarrhea and abdominal pain. AST and alk-phos were elevated at the acute rehab facility prior to arrival. Also showing signs of dehydration with a creatinine 1.6, BUN 73. Abdominal x-ray on arrival to the ER showed Dilated small bowel loops, compatible with small bowel obstruction. ER tried to place NG tube but was unsuccessful CT abdomen pelvis showed Small bowel obstruction with abnormal thickening of the small bowel as well as mesenteric edema and mesenteric lymphadenopathy. No definite transition site identified. General surgery has been consulted and based on the patient recurrent small-bowel obstructions he has plans to undergo exploratory surgery today with Dr. Lucio. NPO at this time. Continue monitoring. IV fluids for hydration. IV antiemetics and pain meds as needed. (2) Aspiration pneumonia due to vomit: Code(s): J69.0 - Pneumonitis due to inhalation of food and vomit Status: Acute Assessment and Plan: Patient presented with leukocytosis at 14,000, elevated neutrophils and 8% bands and on chest x-ray he has findings of bibasilar airspace disease, compatible with pneumonia and aspiration pneumonia in the right setting. Patient had been having nausea, vomiting so he could have aspirated as well as choking on a pill prior to arrival. CT chest showed extensive airspace disease of the mid and lower lungs bilaterally, consistent with pneumonia. Patient was placed on IV Unasyn for treatment of aspiration pneumonia Speech therapy evaluated the patient and he tolerated everything well, except NO straws Since the patient will be undergoing a major abdominal surgery and most likely have an NG tube in for a few days, we may need to speech therapy to redo a bedside prior to him eating again due to his risks with Parkinson's, weakness, infection and undergoing surgery Blood cultures are negative to date Patient is resting comfortably at 94% on room air. Continue monitoring. (3) GERD (gastroesophageal reflux disease): Qualifiers: Esophagitis presence: esophagitis presence not specified Qualified Code(s): K21.9 - Gastro-esophageal reflux disease without esophagitis Code(s): K21.9 - Gastro-esophageal reflux disease without esophagitis Status: Chronic Assessment and Plan: Continue with PPI IV twice daily (4) CVA (cerebral vascular accident): Code(s): I63.9 - Cerebral infarction, unspecified Status: Acute Assessment and Plan: Stable without any new residual defects. (5) Parkinson disease: Code(s): G20 - Parkinson's disease Status: Acute Assessment and Plan: Restart his Parkinson's medications when no longer NPO. (6) MONIQUE (acute kidney injury): Code(s): N17.9 - Acute kidney failure, unspecified Status: Acute Assessment and Plan: Most likely due to acute dehydration from nausea, vomiting, diarrhea as well as underlying infection. Creatinine on arrival was 1.6, improved to 1.0, will continue some light IV fluid hydration. Continue monitoring. (7) Hypokalemia: Code(s): E87.6 - Hypokalemia Status: Acute Assessment and Plan: Hypokalemia at 3.4, will give IV potassium 40 mEQ prior to surgery. Magnesium was elevated at 3.1 yesterday. Continue monitoring and replenish if needed. Subjective Date/time seen: 01/30
--- NOTE | 2021-01-30 12:35 | WPDANESEPPF ---
Anes - Initial Pre Proc Eval Procedure: Operation Date: 01/30/21 13:30 Proposed Procedures p Exploratory Laparotomy, Possible Small Bowel Resection - Riky Richardson DO Date/Time: 01/30/21 12:35 Surgeon: Sindi Almanzar PA-C Pre Op Diagnosis: small bowel obstruction, pneumonia Patient Data Age: 75 Gender: M Height: 1.73 m Weight: 73 kg Last Vital Signs Temp 36.4 C L 01/30/21 09:40 Pulse 86 01/30/21 09:40 Resp 20 01/30/21 09:40 BP 111/68 01/30/21 09:40 Pulse Ox 92 01/30/21 09:40 Allergies Allergy/AdvReac Type Severity Reaction Status Date / Time No Known Allergies Allergy Verified 01/26/21 23:25 Home Medications Medication Instructions Recorded Confirmed Type carbidopa-levodopa [Sinemet] 3 tablet PO QID@,,,01/21/19 01/26/21 History pramipexole [Mirapex] 0.5 mg PO QID@,,,01/21/19 01/26/21 History aspirin 81 mg PO DAILY 10/05/20 01/26/21 History escitalopram oxalate [Lexapro] 20 mg PO DAILY 10/05/20 01/26/21 History magnesium hydroxide [Milk of 60 ml PO DAILY 10/05/20 01/26/21 History Magnesia] mineral oil 60 ml PO DAILY 10/05/20 01/26/21 History pantoprazole 40 mg PO HS PRN 10/05/20 01/26/21 History trazodone 50 mg PO HS 10/05/20 01/26/21 History bisacodyl 10 mg RECTAL DAILY PRN #12 ea 01/13/21 01/26/21 Rx acetaminophen 650 mg PO Q4H PRN 01/26/21 01/26/21 History docusate sodium 100 mg PO BID 01/26/21 01/26/21 History fondaparinux [Arixtra] 2.5 mg SUBCUT DAILY 01/26/21 01/26/21 History hydrocodone-acetaminophen [[place]] 1 tablet PO Q4-6H PRN 01/26/21 01/26/21 History pseudoephedrine HCl [Suphedrin] 15 mg PO DAILY 01/26/21 01/26/21 History Laboratory Tests 01/30/21 01/30/21 07:03 07:03 WBC 14.3 K/mm3 H K/mm3 (4.5-10.0) RBC 2.83 M/mm3 L M/mm3 (4.6-6.20) Hgb 9.1 g/dL L g/dL (14.0-18.0) Hct 28.0 % L % (42.0-52.0) MCV 98.9 fl fl (80-100) MCH 32.2 pg pg (26-34) MCHC 32.5 g/dl g/dl (32-36) RDW 15.7 % H % (11.5-14.5) Plt Count 515 k/mm3 H k/mm3 (150-375) MPV 9.4 fl fl (7.4-10.4) Immature Gran % (Auto) Not Reportable Neut % (Auto) Not Reportable Lymph % (Auto) Not Reportable Long % (Auto) Not Reportable Eos % (Auto) Not Reportable Baso % (Auto) Not Reportable Lymph # (Auto) Not Reportable Long # (Auto) Not Reportable Eos # (Auto) Not Reportable Baso # (Auto) Not Reportable Abs Immat Gran (auto) Not Reportable Absolute Neuts (auto) Not Reportable Absolute Nucleated RBC Not Reportable Total Counted 100 Neutrophils % (Manual) 74 % H % (46-73) Band Neutrophils % 7 % H % (0-6) Lymphocytes % (Manual) 11.0 % L % (18-44) Monocytes % (Manual) 8 % % (3-9) Nucleated RBC % Not Reportable Abs Neuts (Manual) 11.58 K/mm3 H K/mm3 (1.3-6.7) Abs Lymphs (Manual) 1.57 K/mm3 K/mm3 (1.1-4.5) Abs Monocytes (Manual) 1.14 K/mm3 H K/mm3 (0.1-0.90) Nucleated RBCs 1 % % Platelet Estimate Increased (Adequate) Sodium 154 mmol/L H mmol/L (137-145) Potassium 3.8 mmol/L mmol/L (3.4-5.0) Chloride 123 mmol/L H mmol/L (98-107) Carbon Dioxide 23 mmol/L mmol/L (22-30) Anion Gap 8 mmol/L mmol/L (8-16) BUN 37 mg/dL H mg/dL (9-20) Creatinine 1.10 mg/dL mg/dL (0.7-1.3) Estim Creat Clear Calc 50 ml/min ml/min Estimated GFR > 60 (59 - ) Glucose 108 mg/dL mg/dL (65-110) Calcium 8.2 mg/dL L mg/dL (8.4-10.2) Total Bilirubin 0.4 mg/dL mg/dL (0.2-1.3) AST 24 U/L U/L (17-59) ALT 6 U/L U/L (4-50) Alkaline Phosphatase 192 U/L H U/L (38-126) Total Protein 5.0 g/dL L g/dL (6.3-8.2) Albumin 2.4 g/dL L g/dL (3.5-5.1) Patient hx anesthesia problems: none Family
--- NOTE | 2021-01-30 12:54 | WPDHPUPDATE1 ---
History and Physical Update Update Date/Time: 01/30/21 12:54 History and Physical has been reviewed, including an updated exam of the patient. There are NO changes in the patient's condition. Risks, benefits, and alternatives have been discussed and questions answered. Patient agrees to proceed with procedure.
[2021-01-30] MEDS: LACTATED RINGERS 1,000 ML 30 ML IV CONT ×2 (13:06→15:34)
--- NOTE | 2021-01-30 13:06 | SUR.PREOP ---
1300; DR HAWLEY NOTIFIED OF PT'S VS. BP 96/67, HR 117, BREATHING SOMEWHAT LABORED, O2 2L NC APPLIED. HOB ELEVATED. WILL ATTEMPT ANOTHER IV SITE PER DR HAWLEY
--- NOTE | 2021-01-30 14:44 | PCSTNOTE ---
Therapy not attempted due to surgical procedure today.
--- NOTE | 2021-01-30 15:41 | W.PM.PROC2 ---
Procedure Note - Detailed Date of Procedure 01/30/21 Pre-op Diagnosis small bowel obstruction, small bowel mass Post-op Diagnosis same Procedure Performed 1. Exploratory laparotomy 2. 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 He has been in the hospital multiple times over the past 2 years with partial small-bowel obstructions. These generally resolved with NG decompression and bowel rest. He had been trying to modify his diet to avoid recurrent obstructions, but now he presents with a near complete obstruction. Discussions were made with the patient and his about treatment options and decision was made to proceed with exploratory laparotomy with possible small bowel resection. Findings Exploratory laparotomy was performed. The patient was found to have a mass in the mid to distal ileum appeared to be causing a near complete obstruction. He also had evidence of mass along the mesentery, but this was very bulky and extending close to the superior mesenteric artery. I felt that it was to risky to remove the entire mesenteric mass, therefore this was left in place. The proximal bowel was very dilated and thickened. I did small-bowel resection near the mass but the ileum proximal to this still appeared dusky and possibly ischemic. As I traced further proximal, the jejunum appeared healthy and viable, therefore I resected another segment of the ileum until I was at the point healthy appearing bowel with good blood flow. A [id number] anastomosis was performed. The patient still had about 300 cm of healthy appearing small bowel remaining. The specimen was sent to the lab for pathology. Description of Procedure Procedure as well as risks, benefits, and alternatives were discussed with the patient and his . Written consent was obtained and placed in chart prior to procedure. Patient was brought back to surgical suite. He was placed supine on operating table. Time-out was done to confirm patient and procedure. He was then intubated by the Anesthesia Department. His abdomen was prepped and draped in sterile fashion using chlorhexidine prep. A 15 cm vertical midline incision was made using a 10 blade scalpel. Electrocautery was used for hemostasis and for dissection down to the linea alba. The linea alba was then incised with electrocautery. The fascia was then lifted anteriorly and the peritoneum was entered using Metzenbaum scissors. The fascial and peritoneal opening was then extended throughout the length of the skin incision using electrocautery. The abdominal cavity was then carefully inspected and an Steve wound protector was placed. The dilated small bowel was identified and traced distally to the small bowel mass. This was delivered up through the incision and carefully inspected. There was about 500 cc ascites that was aspirated, but there did not appear to be any evidence of perforation. I chose an area of the ileum just proximal to the mass and a window was created in the mesentery using a hemostat and a SRINI 100 mm blue load stapler was advanced across the small-bowel and clamped and fired. I then identified an area just distal to this where the bowel was more decompressed and a SRINI 75 mm blue load stapler was advanced across this portion of the ileum and clamped and fired. The mesentery of the involved segment was then taken down using LigaSure bipolar cautery. Enterotomies were then made on the anti mesenteric portion the 2 limbs of bowel and a SRINI 75 mm blue load stapler was advanced through each enterotomy in the bowel was clamped together and [id number] fashion. Stapler was fired to create our anastomosis. The enterotomy was then closed using a TA 60 mm stapler. The anastomosis was then inspected and the proximal bowel appeared somewhat dusky and isc
--- NOTE | 2021-01-30 17:10 | PC.NURSE ---
This patient, All Bernabe, was received from [[id number]] on 01/30/21 at 1710. Patient/family oriented to unit policies and routines received patient from PACU
[2021-01-30] MEDS: LACTATED RINGERS 1,000 ML 150 ML IV CONT (17:50)
[2021-01-31] VITALS (12 sets, daily range): BP systolic 108–139; BP diastolic 70–89; PULSE 69–110; RESP 14–21; TEMP 36.1–36.9; O2SAT 91–98; BMI 10.0
[2021-01-31] MEDS: LACTATED RINGERS 1,000 ML 150 ML IV CONT ×2 (00:28→06:50)
[2021-01-31] MEDS: AMPICILLIN SULB 3 GM/NS 100 ML 3 GM/100 ML VIAL IVPB ×4 (03:36→19:58)
[2021-01-31] MEDS: MORPHINE SULFATE (*CRX) 2 MG/ML INJ IV PUSH ×2 (03:51→19:15)
[2021-01-31 04:53] LABS: Basophils Absolute Auto 0.1 K/mm3 (0.0-0.1); Basophils Percent Auto 0.6 % (0.2-1.2); Eosinophils Percent Auto 0.1 % (0-4.4); Hematocrit 28.4 % (42.0-52.0); Hemoglobin 8.7 g/dL (14.0-18.0); Immature Granulocyte Absolute 0.16 K/mm3 (0.00-0.031); Immature Granulocyte Percent A 1.4 % (0-0.5); Lymphocytes Absolute Auto 0.85 K/mm3 (0.9-3.2); Lymphocytes Percent Auto 7.6 % (18.3-44.2); Mean Corpuscular HGB Conc 30.6 g/dl (32-36); Mean Corpuscular Hemoglobin 32.8 pg (26-34); Mean Corpuscular Volume 107.2 fl (80-100); Mean Platelet Volume 10.2 fl (7.4-10.4); Monocytes Absolute Auto 0.6 K/mm3 (0.1-0.6); Neutrophils Absolute Auto 9.5 K/mm3 (1.3-6.7); Neutrophils Percent Auto 85.3 % (45.5-73.1); Nucleated Red Blood Cells Perc 0.2 % (0.0-0.2); Platelet Count Result 404 k/mm3 (150-375); Red Blood Count 2.65 M/mm3 (4.6-6.20); Red Cell Distribution Width 16.2 % (11.5-14.5); White Blood Count 11.2 K/mm3 (4.5-10.0)
[2021-01-31 05:15] LABS: Alanine Aminotransferase 7 U/L (4-50); Albumin Level 2.4 g/dL (3.5-5.1); Alkaline Phosphatase 181 U/L (38-126); Anion Gap 7 mmol/L (8-16); Aspartate Amino Transferase 29 U/L (17-59); Bilirubin,Total 0.4 mg/dL (0.2-1.3); Blood Urea Nitrogen 42 mg/dL (9-20); Calcium 7.7 mg/dL (8.4-10.2); Carbon Dioxide 23 mmol/L (22-30); Chloride 121 mmol/L (98-107); Estimated CRCL calculation 50 ml/min; Estimated Glomerular Filt Rate > 60; Glucose 103 mg/dL (65-110); Potassium 4.1 mmol/L (3.4-5.0); Sodium 151 mmol/L (137-145)
[2021-01-31] MEDS: DEXTROSE 5% 1,000 ML 1,000 ML 100 ML IV CONT ×2 (09:16→18:44)
[2021-01-31] MEDS: PANTOPRAZOLE SODIUM IV 40 MG VIAL IV PUSH ×2 (11:17→19:58)
[2021-01-31] MEDS: ENOXAPARIN 40 MG/0.4 ML SYRINGE SUB-Q (11:17)
--- NOTE | 2021-01-31 11:52 | PCNFU ---
Nutrition Follow-Up Complete: Altered GI function as related to SBO as evidenced by NPO/Clear liquids x 4 days Goal: Meet estimated nutritional needs Patient is progressing towards goal. We will continue current goal. Pt current nutrition is NPO. Nutrition recommendation: Advancing diet as tolerated per MD orders. Last recorded weight is 80.3 kg, up from 73 kg on admit. Bowel Motility:+BM reported 01/30 Labs Reviewed:BUN 42, Na 151, Hct 28.4,Alb 2.4,Hgb 8.7 Meds Noted: Morphine Sulfate, Lovenox, Protonix. Skin: WNL Additional Notes: Patient had ileal resection on 01/30. Ice chips started today. Monitoring: will monitor every 3 days.
--- NOTE | 2021-01-31 13:02 | PM.PNGS ---
Progress Note: A&P Assessment and Plan (1) Small bowel mass: Code(s): K63.89 - Other specified diseases of intestine Status: Acute Assessment and Plan: Surgically stable. OK to transfer from ICU. Await return of bowel function. PT/OT ordered. (2) SBO (small bowel obstruction): Code(s): K56.609 - Unspecified intestinal obstruction, unspecified as to partial versus complete obstruction Status: Acute (3) Parkinson disease: Code(s): G20 - Parkinson's disease Status: Acute Subjective Subjective Date/Time Seen: 01/31/21 13:02 Interval history: Pain controlled. Passing flatus. Had a BM right after surgery before leaving OR, but not since then. Remaining stable in ICU and no acute events overnight. Exam GI: Inspection: incision (dressing dry) GI Palp: Yes Soft to palpation and Yes Tenderness to palpation present (GI) (incisional) Auscultation: normal bowel sounds Objective Data Vital Signs Vital Signs: Vital Signs - 24 hr 01/30/21 13:20 01/30/21 15:34 01/30/21 15:45 Temperature 36.8 C 37.2 C Pulse Rate 116 H 74 88 Respiratory Rate 24 H 25 H 24 H Blood Pressure 123/59 L 128/72 Pulse Oximetry 94 92 94 01/30/21 16:00 01/30/21 16:15 01/30/21 16:30 Temperature 37.5 C 37.7 C H Pulse Rate 80 88 91 Respiratory Rate 24 H 23 H 22 H Blood Pressure 121/71 120/88 117/66 Pulse Oximetry 95 95 96 01/30/21 16:45 01/30/21 17:15 01/30/21 17:30 Temperature Pulse Rate 92 99 94 Respiratory Rate 23 H 22 H 23 H Blood Pressure 118/63 126/84 128/80 Pulse Oximetry 93 90 95 01/30/21 17:45 01/30/21 18:00 01/30/21 20:00 Temperature 36.7 C Pulse Rate 94 96 89 Respiratory Rate 20 26 H Blood Pressure 128/80 114/75 Pulse Oximetry 95 95 01/30/21 22:00 01/31/21 00:00 01/31/21 02:00 Temperature 36.9 C Pulse Rate 65 81 78 Respiratory Rate 21 H 17 19 Blood Pressure 108/68 108/73 119/75 Pulse Oximetry 96 97 97 01/31/21 03:26 01/31/21 04:00 01/31/21 06:00 Temperature 36.9 C Pulse Rate 78 90 75 Respiratory Rate 19 21 H 17 Blood Pressure 127/89 125/76 Pulse Oximetry 97 95 96 01/31/21 08:00 01/31/21 10:00 Temperature 36.3 C L Pulse Rate 86 101 H Respiratory Rate 14 18 Blood Pressure 135/83 119/76 Pulse Oximetry 96 92 Intake/Output Intake/Output: Intake & Output 01/28/21 01/29/21 01/30/21 01/31/21 23:59 23:59 23:59 23:59 Intake Total 2360 3450 2200 2100 Output Total 600 500 615 575 Balance 1760 2950 1585 1525 Meds/Results Medications: Active Medications Generic Name Dose Route Start Last Admin Trade Name Freq PRN Reason Stop Dose Admin Enoxaparin Sodium 40 mg 01/28/21 09:00 01/31/21 11:17 Enoxaparin 40 Mg/0.4 Ml Syringe SUB-Q 40 mg DAILY ANIBAL Administration Ampicillin Sodium/Sulbactam Sodium 3 gm in 100 mls @ 200 mls/hr 01/27/21 09:00 01/31/21 09:16 Unasyn 3 Gm/Ns 100 Ml IVPB 200 mls/hr Q6H ANIBAL Administration Dextrose 1,000 mls @ 100 mls/hr 01/31/21 08:30 01/31/21 09:16 Dextrose 5% 1,000 Ml IV CONT 100 mls/hr .Q10H ANIBAL Administration Morphine Sulfate 2 mg 01/30/21 17:03 01/31/21 03:51 Morphine Sulfate (*Crx) 2 Mg/Ml Inj IV PUSH 2 mg Q2H PRN Administration Pain Rated 4-6 Morphine Sulfate 4 mg 01/30/21 17:03 Morphine Sulfate (*Crx) 4 Mg/Ml Inj IV PUSH Q2H PRN Pain Rated 7-10 Ondansetron HCl 4 mg 01/27/21 09:29 Ondansetron Inj 4 Mg/2 Ml Vial IV PUSH Q6H PRN Nausea And Vomiting Pantoprazole Sodium 40 mg 01/27/21 09:20 01/31/21 11:17 Pantoprazole Sodium Iv 40 Mg Vial IV PUSH 40 mg Q12HR ANIBAL Administration Radiology Results: ITS Impressions Chest X-Ray 01/26/21 19:46 Impression: 1: Bibasilar airspace disease, compatible with pneumonia. Abdomen/Pelvis CT 01/27/21 14:29 IMPRESSION: 1. Small bowel obstruction with abnormal thickening of the small bowel as well as mesenteric edema and mesenteric lymphadenopathy. No definite transi
--- NOTE | 2021-01-31 13:12 | WPDCNINT ---
Assessment and Plan Assessment and plan (1) Hypotension: Code(s): I95.9 - Hypotension, unspecified Status: Acute Assessment and Plan: Patient was intraop operatively hypertensive but has maintained stable vital signs post arrival to ICU Hemoglobin is stable Remove arterial line Continue IV fluids (2) SBO (small bowel obstruction): Code(s): K56.609 - Unspecified intestinal obstruction, unspecified as to partial versus complete obstruction Status: Acute Assessment and Plan: Status post Exploratory laparotomy Ileal resection with [id number] ileal anastomosis Currently NPO and NG tube in place Management per surgery P.r.n. morphine for pain control Continue Unasyn (3) Parkinson's disease: Code(s): G20 - Parkinson's disease Status: Acute Assessment and Plan: His few meds on hold at this time per General surgery. (4) Postoperative pain: Code(s): G89.18 - Other acute postprocedural pain Status: Acute Assessment and Plan: P.r.n. morphine (5) Electrolyte abnormality: Code(s): E87.8 - Other disorders of electrolyte and fluid balance, not elsewhere classified Status: Acute Assessment and Plan: Elevated sodium and chloride. I have changed IV fluids to D5 water Repeat BMP ordered for later today Additional Plan DVT prophylaxis -Lovenox Code Status - Full Code PT OT, incentive spirometry, transfer out of ICU today Tube Draw Helper Consult Note Consult date: 01/31/21 HPI: All Bernabe is a 75 year old male with past medical history of Parkinson's disease, recurrent small-bowel obstruction who was in rehab for hip replacement surgery was admitted to [facility] on 01/26 with nausea vomiting and abdominal distension. Patient was again diagnosed with small-bowel obstruction and General surgery was consulted. Patient was started on IV fluids and IV antibiotics. 01/30 patient underwent Exploratory laparotomy and Ileal resection with nliz-[id number] ileal anastomosis. The patient was admitted to ICU for closer monitoring as patient was hypertensive during the case. Overnight patient remained hemodynamically stable and did not require any vasopressors and was on IV fluids. This morning when I saw the patient he states that he has abdominal pain which is 4/10 severe. Pain is at the surgical site does not radiate anywhere else sharp in quality no aggravating or relieving factors. 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 Amblyopia of left eye Cerebrovascular accident Mild right-sided deficits, mainly in the leg. Chronic interstitial lung disease Noted on imaging though patient is asymptomatic he reports multiple occupational exposures. 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 Esophageal stricture Status post dilatation. Gastroesophageal reflux disease Hip fracture requiring operative repair Left hip Gamma Nail 01/11/21 Hyperlipidemia Hypertension Kidney stone Osteoporosis Parkinsons disease Pelvis fracture Prostate cancer Status post open prostatectomy. Skin cancer Surgical History Surgical History History of eye surgery History of hip surgery left gamma nail 01/11/21 History of prostatectomy History of tonsillectomy Family History Family History Sibling Breast cancer Mot
[2021-01-31 20:34] LABS: Anion Gap 4 mmol/L (8-16); Blood Urea Nitrogen 33 mg/dL (9-20); Calcium 7.8 mg/dL (8.4-10.2); Carbon Dioxide 27 mmol/L (22-30); Chloride 119 mmol/L (98-107); Estimated CRCL calculation 50 ml/min; Estimated Glomerular Filt Rate > 60; Glucose 121 mg/dL (65-110); Potassium 3.7 mmol/L (3.4-5.0); Sodium 150 mmol/L (137-145)
--- NOTE | 2021-01-31 21:52 | PC.NURSE ---
This patient, All Bernabe, was transferred to [ 256] on 01/31/21 at 2130. Personal belongings sent with patient. Report given to [Talat RN ]. Appropriate documentation sent with patient.
[2021-02-01] VITALS (13 sets, daily range): BP systolic 123–127; BP diastolic 74–76; PULSE 72–90; RESP 12–20; TEMP 36.6–37.4; O2SAT 84–100; BMI 11.0
[2021-02-01] MEDS: AMPICILLIN SULB 3 GM/NS 100 ML 3 GM/100 ML VIAL IVPB ×4 (03:11→21:25)
[2021-02-01] MEDS: MORPHINE SULFATE (*CRX) 2 MG/ML INJ IV PUSH ×2 (03:11→13:04)
[2021-02-01] MEDS: DEXTROSE 5% 1,000 ML 1,000 ML 100 ML IV CONT (05:43)
[2021-02-01 06:13] LABS: Hematocrit 26.6 % (42.0-52.0); Mean Corpuscular HGB Conc 30.1 g/dl (32-36); Mean Corpuscular Hemoglobin 31.9 pg (26-34); Mean Platelet Volume 10.1 fl (7.4-10.4); Platelet Count Result 377 k/mm3 (150-375); Red Blood Count 2.51 M/mm3 (4.6-6.20); Red Cell Distribution Width 15.9 % (11.5-14.5)
[2021-02-01 06:18] LABS: Alanine Aminotransferase 14 U/L (4-50); Albumin Level 2.4 g/dL (3.5-5.1); Alkaline Phosphatase 175 U/L (38-126); Anion Gap 3 mmol/L (8-16); Aspartate Amino Transferase 29 U/L (17-59); Bilirubin,Total 0.2 mg/dL (0.2-1.3); Blood Urea Nitrogen 28 mg/dL (9-20); Calcium 7.8 mg/dL (8.4-10.2); Carbon Dioxide 25 mmol/L (22-30); Chloride 118 mmol/L (98-107); Estimated CRCL calculation 55 ml/min; Estimated Glomerular Filt Rate > 60; Glucose 115 mg/dL (65-110); Magnesium 2.2 mg/dL (1.6-2.3); Potassium 3.6 mmol/L (3.4-5.0); Sodium 146 mmol/L (137-145)
[2021-02-01] MEDS: PANTOPRAZOLE SODIUM IV 40 MG VIAL IV PUSH ×2 (08:26→21:35)
[2021-02-01] MEDS: ENOXAPARIN 40 MG/0.4 ML SYRINGE SUB-Q (08:26)
--- NOTE | 2021-02-01 10:48 | PM.PNGS ---
Progress Note: A&P Assessment and Plan (1) Small bowel mass: Code(s): K63.89 - Other specified diseases of intestine Status: Acute Assessment and Plan: POD2 and doing fair. NG tube with minimal output and reporting flatus. Will remove NG tube and trial clear liquids. Will give one time dose of Lasix IV for gentle diuresis. PT/OT following. Will try to get up to the chair today. Pathology pending. Repeat labs tomorrow. (2) SBO (small bowel obstruction): Code(s): K56.609 - Unspecified intestinal obstruction, unspecified as to partial versus complete obstruction Status: Acute (3) Parkinson disease: Code(s): G20 - Parkinson's disease Status: Acute Assessment and Plan: Could resume home medications if he tolerates clear liquids. Additional Plan I have discussed the patient's case and plan of care with Dr. Richardson. Subjective Subjective Date/Time Seen: 02/01/21 09:48 Post Op day: 2 (Ex lap, small bowel resection) Patient reports: no new complaints, flatus, no bowel movement and afebrile Interval history: This is a 75 yo M known to our service for multiple previous small bowel obstructions suspected to be secondary to a mesenteric/small bowel mass, with hx of Parkinson's and recent hip fracture s/p gamma manuel placement to left hip on 01/11. He was discharged to rehab following his hip surgery and returned with evidence of another small bowel obstruction. Patient is now POD2 ex lap with small bowel resection by Dr. Richardson. Chart reviewed. Patient seen and examined this morning. He reports feeling well today. Post-op pain well-controlled. Reports flatus. No other specific complaints at this time. No family at the bedside during my exam. Still on 2L O2 via nasal cannula. Minimal NG output over the past 24 hours. Review of Systems Review of Systems: All systems reviewed & are unremarkable except as noted in HPI and below Constitutional: Constitutional: Reports as per HPI, Reports no additional constitutional complaints, Denies chills and Denies fever(s) Cardiovascular: Cardiovascular: Reports no additional cardiovascular complaints and Denies chest pain Respiratory: Respiratory: Reports no additional respiratory complaints, Denies cough and Denies dyspnea Gastrointestinal: Gastrointestinal: Reports as per HPI and Reports no additional gastrointestinal complaints Exam Const: General: comfortable and no acute distress Orientation/consciousness: patient oriented x3 HENMT: Mouth: Yes moist mucous membranes Resp: Effort & Inspection: not labored and no respiratory distress Auscultation: crackles on the right at the base, rales on the right at the base, no wheezes and diminished lung sounds on the left in the lower lung rosado Cardio: Rate: regular rate Rhythm: regular rhythm GI: Inspection: incision (incision clean and dry) GI Palp: Yes Soft to palpation, Yes Tenderness to palpation present (GI) (incisional) and No Guarding due to palpation present (GI) Auscultation: Hypoactive bowel sounds present Urinary Catheter: Urinary Catheter: patent and draining and urine clear Skin: General skin exam: normal color Extrem: General: no calf tenderness and edema bilateral (hands 2-3+ pitting, lower legs mild 1+ pitting edema) Other: decreased motor R LE Psych: Mental Status: mental status grossly normal Insight: Fair insight present (Psych) Judgement: Fair judgement present (Psych) Objective Data Vital Signs Vital Signs: Vital Signs - 24 hr 01/31/21 12:00 01/31/21 14:00 01/31/21 16:00 Temperature Pulse Rate 75 69 76 Respiratory Rate 19 18 16 Blood Pressure 114/71 135/70 129/72 Pulse Oximetry 96 97 97 01/31/21 20:00 01/31/21 22:06 02/01/21 06:49 Temperature 97.9 F 96.9 F L Pulse Rate 73 78 Respiratory Rate 17 20 Blood Pressure 126/76 139/73 Pulse Oximetry 91 93 90 02/01/21 08:00 Temperature Pulse Rate Respiratory Rate Blood Pressure Pulse Oximetry
--- NOTE | 2021-02-01 11:05 | PM.IMPN ---
Progress Note: A&P Assessment and Plan (1) Acute respiratory failure: Code(s): J96.00 - Acute respiratory failure, unspecified whether with hypoxia or hypercapnia Status: Acute Assessment and Plan: Currently patient is stable hemodynamically but requiring high volume of oxygen 12 L per nasal cannula. Patient presented mild transient tachycardia in the 101-110 range on 01/31/2021. He has been on DVT prophylaxis with Lovenox. We will perform portable chest Xray, stat ABG and continuous pulse ox monitoring. Patient receiving single dose of IV Lasix for gentle diuresis today. Continue close monitoring of respiratory status. Currently he is not wheezing. (2) Hypotension: Code(s): I95.9 - Hypotension, unspecified Status: Acute Assessment and Plan: Patient was intraop operatively hypotensive but has maintained stable vital signs post arrival to ICU Hemoglobin is stable. Currently patient is stable and afebrile with a blood pressure of 139/73 and temperature of 96.9? F. (3) SBO (small bowel obstruction): Code(s): K56.609 - Unspecified intestinal obstruction, unspecified as to partial versus complete obstruction Status: Acute Assessment and Plan: Status post Exploratory laparotomy Ileal resection with [id number] ileal anastomosis. POD2. Currently NPO and NG tube in place with suction Management per surgery. plan to remove NG tube and perform a trial of clear liquids today. P.r.n. morphine for pain control. Surgery within a single dose of Lasix for gentle diuresis. Will monitor his BMP closely. Continue Unasyn. Physical therapy and occupational therapy following. Patient continued to require high volume of oxygen at 12 L. Will perform stat Chest x-ray. (4) Parkinson's disease: Code(s): G20 - Parkinson's disease Status: Acute Assessment and Plan: p.o. medication currently on hold O postop day 2. Resume a home medication when all intake is tolerated. (5) Postoperative pain: Code(s): G89.18 - Other acute postprocedural pain Status: Acute Assessment and Plan: P.r.n. morphine. Management per surgery. (6) Electrolyte abnormality: Code(s): E87.8 - Other disorders of electrolyte and fluid balance, not elsewhere classified Status: Acute Assessment and Plan: Mild hypernatremia, improving. Continue free water. Monitor serum sodium daily. chloride remained elevated at 118. This is likely secondary to normal saline administration. Continue free water. Additional Plan DVT prophylaxis -Lovenox Code Status - Full Code Subjective Date/time seen: Narrative. All Bernabe is a 75 year old gentleman with past medical history of Parkinson's disease, recurrent small-bowel obstruction who was in rehab for hip replacement surgery was admitted to [facility] on 01/26 with nausea vomiting and abdominal distension, diagnosed with small-bowel obstruction. On 01/30 patient underwent exploratory laparotomy and Ileal resection with [id number]-mr-[id number] ileal anastomosis. Postoperatively, the patient was admitted to ICU for closer monitoring as patient was hypotensive during the case. Overnight patient remained hemodynamically stable and did not require any vasopressors and was on IV fluids. 02/01/21 11:05 S: the patient is examined at the bedside. He is lethargic. He did not have any complaints. He did not appear to be in any distress. Review of Systems Review of Systems: All systems reviewed & are unremarkable except as noted in HPI and below Exam Const: General: comfortable and no acute distress HENMT: Mouth: Yes Abnormal oral and palatal mucosa present Other: NG tube connected to suction in place. Eyes: General: appearance normal, both eyes and all related structures Sclera: sclerae normal Neck: Neck: supple and no JVD Resp: Auscultation: clear to auscultation bilaterally, no crackles, no rales and no rhonchi Other:
--- NOTE | 2021-02-01 11:49 | PC.NURSE ---
PT and OT were working with the patient and getting him to the chair when they noted that the patient was having some difficulty catching his breath. This nurse was called to the patients room and oxygen requirements were increased. Patient was 93% on 4L NC but sitting in the chair the patient on 4L was only 84%. Oxygen was increased to 7L NC and saturation only came up to 86%. The patient was transitioned to 12L high flow NC and placed back into the bed, patient oxygen saturation is now 93%. Dr. Dinh was called by this nurse and is bedside to assess patient and place orders. Family bedside and updated throughout the entire process.
--- NOTE | 2021-02-01 13:59 | PCSTNOTE ---
Patient is asleep at this time; respiratory therapist entered room to take blood gases with needle and patient did not awaken during this procedure. Therapist left swallowing exercises with who stated that she did not think patient would be able to tolerate exercises at this time due to presence of pneumonia which turned up following surgery. Right now, this speech pathologist will monitor but may discontinue skilled ST if patient unable to participate.
[2021-02-01 14:02] LABS: Alveolar/Arterial O2 Gradient 309.2 mmHg; Base Excess ABG 2.6 mEq/l (+/-2.0); Fractional Inspired Oxygen 68 %; HCO3 ABG 26.1 mEq/l (22.0-26.0); Oxygen Saturation ABG 98.9 % (95.0-100.0); PCO2 ABG 35.6 mmHg (35.0-45.0); PO2 ABG 137.2 mmHg (80.0-100.0); PO2 FiO2 Ratio Arterial Blood 2.02 %; pH ABG 7.483 (7.350-7.450)
[2021-02-01 14:05] LABS: Device HIGH FLOW NASAL CANN; Modified Allen's Test Pass; Site Drawn LEFT RADIAL; Total Hemoglobin 7.9 g/dL (12.0-18.0)
[2021-02-01] MEDS: FUROSEMIDE INJ 40 MG/4 ML VIAL 20 MG IV PUSH (14:35)
[2021-02-01] MEDS: IPRATROPIUM BR 0.02% INH SOLN 0.5 MG/2.5 ML VIAL INHALATION (23:53)
[2021-02-01] MEDS: ALBUTEROL SULFATE NEB 2.5 MG/0.5 ML INH 5 MG INHALATION (23:53)
[2021-02-02] VITALS (22 sets, daily range): BP systolic 108–115; BP diastolic 60–70; PULSE 87–109; RESP 24–36; TEMP 36.8–37.3; O2SAT 83–99
[2021-02-02 03:07] LABS: Alveolar/Arterial O2 Gradient 637.8 mmHg; Fractional Inspired Oxygen 100 %; HCO3 ABG 23.8 mEq/l (22.0-26.0); Oxygen Content ABG 6.1 %vol (16.0-22.0); Oxygen Saturation ABG 88.6 % (95.0-100.0); PCO2 ABG 28.2 mmHg (35.0-45.0); PO2 FiO2 Ratio Arterial Blood 0.47 %
[2021-02-02 03:09] LABS: pH ABG 7.544 (7.350-7.450)
[2021-02-02 03:12] LABS: Device HIGH FLOW NASAL CANN; Modified Allen's Test Pass; Oxyhemoglobin 85.2 % THb (90.0-100.0); Site Drawn LEFT RADIAL
[2021-02-02] MEDS: AMPICILLIN SULB 3 GM/NS 100 ML 3 GM/100 ML VIAL IVPB ×4 (03:26→20:40)
--- NOTE | 2021-02-02 03:41 | PC.NURSE ---
Addendum entered by Talat Treviño RN 02/02/21 03:42: Dr. Fink notified pt unable to maintain O2 sats >90% on 15L [place]. Bipap and ABGs ordered. ABGs showing multiple critical results which were reported verbally to MD at bedside. Dr Fink placed pt on CPAP settings while at bedside and will enter orders to reflect changes. Pt will not be transferred to higher acuity at this time, will attempt to place pt back on [place] NC at 0600, pt will be transferred if unable to maintain >90% when placed back on H[place]low NC. Original Note: Pt unable to maintain O2 sats >90% on 15L [place] NC,
--- NOTE | 2021-02-02 04:06 | PM.EVENT ---
Event Note Event Note Event Note: 02/02/2021 at 03:10 Nursing staff called as the patient was requiring 15 L high-flow nasal cannula and satting 88%. The patient had had progressive increased oxygen requirement throughout the day. He had a CTA of the chest performed which demonstrated mucous plugging of the left lower bronchus for resulting in left lower lobe lung collapse and persistent right middle lobe and right lower lobe pneumonia. CT also demonstrated some mild pneumomediastinum and some moderate pneumoperitoneum consistent with patient's history of recent laparotomy with bowel resection. I went and evaluated the patient. He was tachypneic with respiratory rate around 30. I had previously ordered BiPAP. However the patient was pulling large tidal volumes on BiPAP and ABG x-ray demonstrated the patient was hyperventilating. Subsequently change the patient to CPAP of 10 and while I was at the bedside was able to wean the patient's FiO2 down to 70% he was still satting greater than 95%. I left instructions to titrate FiO2 to maintain O2 sats greater than 92%. Given that the patient had evidence of mucus plugging Pulmozyme was also ordered as well as CPT with IPV. 30 minute spent in critical care activities. This case had a high probability of a clinically significant, sudden, or life threatening deterioration of this patient's condition which required my full and direct attention, intervention and personal management.
[2021-02-02 04:30] LABS: Hemoglobin 8.8 g/dL (14.0-18.0); Mean Corpuscular HGB Conc 30.3 g/dl (32-36); Mean Corpuscular Volume 105.5 fl (80-100); Mean Platelet Volume 10.4 fl (7.4-10.4); Platelet Count Result 449 k/mm3 (150-375); Red Blood Count 2.75 M/mm3 (4.6-6.20); Red Cell Distribution Width 15.3 % (11.5-14.5); White Blood Count 18.5 K/mm3 (4.5-10.0)
[2021-02-02 04:40] LABS: Alanine Aminotransferase 16 U/L (4-50); Albumin Level 2.6 g/dL (3.5-5.1); Alkaline Phosphatase 205 U/L (38-126); Anion Gap 9 mmol/L (8-16); Aspartate Amino Transferase 25 U/L (17-59); Bilirubin,Total 0.4 mg/dL (0.2-1.3); Blood Urea Nitrogen 22 mg/dL (9-20); Carbon Dioxide 26 mmol/L (22-30); Chloride 115 mmol/L (98-107); Estimated CRCL calculation 60 ml/min; Estimated Glomerular Filt Rate > 60; Glucose 92 mg/dL (65-110); Potassium 3.2 mmol/L (3.4-5.0); Sodium 150 mmol/L (137-145)
[2021-02-02 04:41] LABS: Lactic Acid Reflex 1.8 mmol/L (0.7-2.1)
--- NOTE | 2021-02-02 06:25 | PC.NURSE ---
Pt did not tolerate transition to [place] NC, desat to 84% on 15L. Dr Fink notified and pt will be transferred to higher acuity. Pt placed back on CPAP and saturating >95%
--- NOTE | 2021-02-02 07:49 | PCOTNOTE ---
Per RN, pt. on continuous BIPAP, potentially moving to IMU, not appropriate for therapy today. Continue plan of care tomorrow if appropriate.
--- NOTE | 2021-02-02 07:53 | PM.IMPN ---
Progress Note: A&P Assessment and Plan (1) Acute respiratory failure: Code(s): J96.00 - Acute respiratory failure, unspecified whether with hypoxia or hypercapnia Status: Acute Assessment and Plan: Currently patient is stable hemodynamically but requiring high volume of oxygen 15 L per nasal cannula. Patient desaturated to 84-86 overnight and had to be started on noninvasive ventilation with BiPAP overnight. Chest x-ray revealed multi segmental bibasilar pneumonia and atelectasis. Patient already on appropriate antibiotic with unasyn. (2) Hypotension: Code(s): I95.9 - Hypotension, unspecified Status: Acute Assessment and Plan: Patient was intraop operatively hypotensive but has maintained stable vital signs post arrival to ICU Hemoglobin is stable. Currently patient is stable and afebrile with a blood pressure of 108/70 and temperature of 96.9? F. (3) SBO (small bowel obstruction): Code(s): K56.609 - Unspecified intestinal obstruction, unspecified as to partial versus complete obstruction Status: Acute Assessment and Plan: Status post Exploratory laparotomy ileal resection with [id number]-ao-kieo ileal anastomosis. POD3. Currently NPO and NG tube in place with suction. Management per surgery. Plan to remove NG tube and perform a trial of clear liquids today. P.r.n. morphine for pain control. Give a single dose of Lasix 20 mg IV for gentle diuresis. Will monitor his BMP closely. Continue Unasyn. Physical therapy and occupational therapy when able. Patient continued to require high volume of oxygen at 15 L. Transfer to ICU. (4) Parkinson's disease: Code(s): G20 - Parkinson's disease Status: Acute Assessment and Plan: p.o. medication currently on hold postop day 3. Resume a home medication when oral intake is tolerated. (5) Postoperative pain: Code(s): G89.18 - Other acute postprocedural pain Status: Acute Assessment and Plan: P.r.n. morphine. Management per surgery. (6) Electrolyte abnormality: Code(s): E87.8 - Other disorders of electrolyte and fluid balance, not elsewhere classified Status: Acute Assessment and Plan: Hypernatremia He is worsening at 1:50 a.m. today. Give free water. Hypokalemia has been supplemented. Monitor serum sodium a this afternoon. Chloride remains elevated at 115. Subjective Date/time seen: 02/02/21 07:53 S: Patient is examined at the bedside. He did not tolerate addition to high-flow nasal cannula and desaturated overnight. Patient started on non disease ventilation with BiPAP. He will be transferred to higher level of care. At the time of my evaluation patient is awake alert on BiPAP. He did not seem in any distress. Interval history: Disease a 75-year-old gentleman with a past medical history including but not limited to Parkinson's disease, recurrent small-bowel obstruction admitted for aspiration pneumonia and small bowel obstruction. Today patient is postop 3 (Ex lap, small bowel resection). Review of Systems Review of Systems: All systems reviewed & are unremarkable except as noted in HPI and below Constitutional: Constitutional: Denies chills, Reports fatigue, Denies fever(s), Reports lethargy, Reports poor appetite and Reports weakness Eyes: Eyes: Denies change in vision ENT: Reports dysphagia, Denies vertigo, Denies dizziness, Denies nasal congestion, Denies nasal discharge, Denies nasal obstruction and Denies odynophagia Cardiovascular: Cardiovascular: Denies syncope, Denies irregular heart rhythm, Denies leg edema, Denies lightheadedness, Denies radiating jaw, neck or arm pain, Denies palpitations, Denies dyspnea, Denies dyspnea on exertion and Denies orthopnea Respiratory: Respiratory: Denies change in phlegm color, Denies cough, Denies excessive phlegm production, Denies dyspnea, Denies dyspnea on exertion and Denies wheezing Gastrointestinal: Gastroint
[2021-02-02] MEDS: ENOXAPARIN 40 MG/0.4 ML SYRINGE SUB-Q (08:22)
[2021-02-02] MEDS: PANTOPRAZOLE SODIUM IV 40 MG VIAL IV PUSH ×2 (08:22→20:47)
[2021-02-02 08:54] LABS: Alveolar/Arterial O2 Gradient 386.8 mmHg; Base Excess ABG 2.8 mEq/l (+/-2.0); Fractional Inspired Oxygen 70 %; HCO3 ABG 25.4 mEq/l (22.0-26.0); Oxygen Content ABG 12.4 %vol (16.0-22.0); Oxygen Saturation ABG 96.8 % (95.0-100.0); Oxyhemoglobin 94.1 % THb (90.0-100.0); PCO2 ABG 31.6 mmHg (35.0-45.0); PO2 ABG 78.3 mmHg (80.0-100.0); PO2 FiO2 Ratio Arterial Blood 1.12 %; Total Hemoglobin 9.3 g/dL (12.0-18.0)
[2021-02-02 08:56] LABS: Device CPAP; Modified Allen's Test Pass; Site Drawn LEFT RADIAL; pH ABG 7.523 (7.350-7.450)
[2021-02-02 08:57] LABS: CPAP 10 cmH2O
[2021-02-02] MEDS: ALBUTEROL SULFATE NEB 2.5 MG/0.5 ML INH 5 MG INHALATION ×3 (09:34→22:16)
[2021-02-02] MEDS: IPRATROPIUM BR 0.02% INH SOLN 0.5 MG/2.5 ML VIAL INHALATION ×3 (09:34→22:16)
[2021-02-02] MEDS: DEXTROSE 5% IN WATER 250 ML 125 ML IV CONT (11:11)
[2021-02-02] MEDS: KCL 20 MEQ/SW 100 ML 100 ML 50 MEQ IVPB (11:12)
--- NOTE | 2021-02-02 11:30 | PM.PNGS ---
Progress Note: A&P Assessment and Plan (1) Small bowel mass: Code(s): K63.89 - Other specified diseases of intestine Status: Acute Assessment and Plan: Patient still having respiratory issues and on CPAP. NG remains. Will place back to low int suction while on CPAP. Await improvement in pulmonary status before starting enteral feedings. Place PICC line and start TPN today. Patient will need another Barium swallow eval once his respiratory status improves, then can hopefully remove NG and start diet. Continue PT/OT. Discussed with , overall prognosis is guarded but will see how next couple days are. (2) SBO (small bowel obstruction): Code(s): K56.609 - Unspecified intestinal obstruction, unspecified as to partial versus complete obstruction Status: Acute (3) Acute respiratory failure: Code(s): J96.00 - Acute respiratory failure, unspecified whether with hypoxia or hypercapnia Status: Acute Subjective Subjective Date/Time Seen: 02/02/21 11:30 Interval history: Patient had worsening respiratory issues overnight. Bowels moving and says he is hungry. Denies worsening abdominal pain or bloating. Was on CPAP when I first examined him this AM. Now getting Pulmozyme treatment with respiratory mask. Exam Const: General: cooperative and awake GI: Inspection: non-distended and incision (intact with jocelyne) GI Palp: Yes Soft to palpation, Yes Tenderness to palpation present (GI) (minimal incisional tenderness), No Guarding due to palpation present (GI) and No Rebound tenderness present Auscultation: normal bowel sounds Objective Data Vital Signs Vital Signs: Vital Signs - 24 hr 02/01/21 12:00 02/01/21 14:10 02/01/21 16:00 Temperature 36.6 C Pulse Rate 76 72 74 Respiratory Rate 12 Blood Pressure 127/74 Pulse Oximetry 96 02/01/21 21:00 02/01/21 21:04 02/01/21 21:08 Temperature 37.4 C Pulse Rate 77 80 Respiratory Rate 20 Blood Pressure 123/76 Pulse Oximetry 99 100 02/01/21 21:33 02/01/21 23:54 02/02/21 00:00 Temperature Pulse Rate 90 87 Respiratory Rate 20 Blood Pressure Pulse Oximetry 93 02/02/21 02:43 02/02/21 03:52 02/02/21 04:00 Temperature 37.3 C Pulse Rate 98 103 H 103 H Respiratory Rate 28 H 32 H Blood Pressure 108/70 Pulse Oximetry 94 96 02/02/21 09:30 02/02/21 09:48 Temperature Pulse Rate 106 H 104 H Respiratory Rate 32 H 28 H Blood Pressure Pulse Oximetry 94 Intake/Output Intake/Output: Intake & Output 01/30/21 01/31/21 02/01/21 02/02/21 23:59 23:59 23:59 23:59 Intake Total 2200 3860 1400 200 Output Total 615 1195 2375 1200 Balance 1585 7685 -390 -1000 Meds/Results Medications: Active Medications Generic Name Dose Route Start Last Admin Trade Name Freq PRN Reason Stop Dose Admin Albuterol 5 mg 02/01/21 23:43 02/02/21 09:34 Albuterol Sulfate Neb 2.5 Mg/0.5 Ml Inh INHALATION 5 mg Q6HRT ANIBAL Administration Dornase Gael 2.5 mg 02/02/21 01:25 Dornase Gael Inh Soln 1 Mg/Ml 2.5 Ml Amp INHALATION Q12HRT ANIBAL Enoxaparin Sodium 40 mg 01/28/21 09:00 02/02/21 08:22 Enoxaparin 40 Mg/0.4 Ml Syringe SUB-Q 40 mg DAILY ANIBAL Administration Ampicillin Sodium/Sulbactam Sodium 3 gm in 100 mls @ 200 mls/hr 01/27/21 09:00 02/02/21 08:55 Unasyn 3 Gm/Ns 100 Ml IVPB Infused Q6H [facility] Infusion Dextrose 1,000 mls @ 50 mls/hr 02/02/21 11:27 Dextrose 10% IV CONT .Q20H PRN if PN is interrupted Multivitamins 2.5 ml/ 2,005 mls @ 60 mls/hr 02/02/21 11:30 Multivitamins 2.5 ml/ Amino IV CONT Acids/Electrolytes/Dextrose .Q24H [facility] Protocol Fat Emulsion Intravenous 250 mls @ 20.833 mls/hr 02/02/21 11:30 Lipids 20% IVPB Q24H ANIBAL Ipratropium [place] 0.5 mg 02/01/21 23:44 02/02/21 09:34 Ipratropium Br 0.02% Inh Soln 0.5 Mg/2.5 Ml Vial INHALATION 0.5 mg Q6HRT ANIBAL Administration Miconazole Nitrate 1 applic 02/01/21 14
[2021-02-02 12:06] LABS: Partial Thromboplastin Time 36.4 SECONDS (22.3-36.8)
[2021-02-02 12:10] LABS: Transferrin 97 mg/dL (206-381)
--- NOTE | 2021-02-02 12:23 | PCSTNOTE ---
Please refer to the Bedside Swallow Evaluation in the EMR. Please note, silent aspiration cannot be ruled out at bedside.
[2021-02-02 12:39] LABS: Glucose Point of Care 83 mg/dl (65-105)
--- NOTE | 2021-02-02 12:57 | PCNFU ---
Nutrition Follow-Up Complete: Altered GI function as related to SBO as evidenced by NPO/Clear liquids x 4 days Goal: Meet estimated nutritional needs Patient has limited progress towards goal. We will continue current goal. Pt current nutrition is NPO. Last recorded weight is 77.2 kg, up from 73 kg on admit. Bowel Motility:+BM reported 02/01 Labs Reviewed:BUN 22, Na 150, K 3.2,Hct 29.0,Hgb 8.8 Meds Noted:Lovenox, Protonix,Morphine Sulfate, Clinimix 5/15 at 60 ml/hr, 20% of Lipid Emulsion. Skin:WNL Additional Notes: Patient remains on NPO x 8 days. Patient on non rebreather mask, NGT to suction. Plans for PICC for TPN starting today. Bedside Swallow ordered today recommending MBS. Patient will remain NPO at this time. TPN at 60 ml/hr will providing patient with 1522 kcals/72 gms protein. Meeting 77% of caloric needs at this time. Agree with diet orders. Monitoring:will monitor every Friday and Friday.
--- NOTE | 2021-02-02 13:27 | PCPTNOTE ---
Attempted to see patient for PT, per nursing hold on therapy this date due to patient's medical status.
[2021-02-02 14:25] LABS: Anion Gap 9 mmol/L (8-16); Blood Urea Nitrogen 22 mg/dL (9-20); Calcium 7.7 mg/dL (8.4-10.2); Carbon Dioxide 25 mmol/L (22-30); Chloride 117 mmol/L (98-107); Estimated CRCL calculation 55 ml/min; Estimated Glomerular Filt Rate > 60; Glucose 109 mg/dL (65-110); Potassium 3.1 mmol/L (3.4-5.0); Sodium 151 mmol/L (137-145)
[2021-02-02] MEDS: LIDOCAINE HCL 1% PF INJ 5 ML VIAL INFILTRATE (16:30)
[2021-02-02 18:30] LABS: Glucose Point of Care 67 mg/dl (65-105)
[2021-02-02] MEDS: AMINO ACIDS 5%/D15W/E-LYTES/CA 2,000 ML with MULTIVITAMINS-12 INJ VIAL 1 2.5 ML, MULTIV... 60 ML IV CONT (18:33)
[2021-02-02] MEDS: FAT EMULSIONS IV 20% 250 ML 20.83 ML IVPB (18:34)
--- NOTE | 2021-02-02 18:58 | PC.NURSE ---
accucheck for [address] Dinh. Will be given a one time order for 1/2 amp of D50 and to recheck blood sugar
[2021-02-02] MEDS: DEXTROSE 50% 25 GM/50 ML SYRINGE IV PUSH (19:17)
--- NOTE | 2021-02-02 19:45 | PC.NURSE ---
patient unable to turn due to respiratory status. spoke with hospitalist and will wait to replace mepilex on coccyx. will pass on to ocean freight manager. patient placed on specialty mattress to help prevent worsening of wound
[2021-02-02] MEDS: CENTRAL LINE FLUSH 10 ML IV PUSH (20:47)
[2021-02-02 21:17] LABS: Alveolar/Arterial O2 Gradient 602.2 mmHg; Fractional Inspired Oxygen 100 %; HCO3 ABG 24.4 mEq/l (22.0-26.0); Oxyhemoglobin 94.2 % THb (90.0-100.0); PCO2 ABG 30.7 mmHg (35.0-45.0); PO2 ABG 80.1 mmHg (80.0-100.0); Site Drawn LEFT RADIAL; Total Hemoglobin 10.5 g/dL (12.0-18.0); pH ABG 7.519 (7.350-7.450)
[2021-02-02 21:18] LABS: Device CPAP; Modified Allen's Test Pass
[2021-02-02 21:19] LABS: CPAP 10 cmH2O
[2021-02-02 22:06] LABS: Glucose Point of Care 86 mg/dl (65-105)
[2021-02-02] MEDS: DORNASE ALFA INH SOLN 1 MG/ML 2.5 ML AMP 2.5 MG INHALATION (22:16)
[2021-02-03] VITALS (27 sets, daily range): BP systolic 102–117; BP diastolic 52–63; PULSE 73–115; RESP 22–34; TEMP 36.7–38; O2SAT 95–100
[2021-02-03] MEDS: IPRATROPIUM BR 0.02% INH SOLN 0.5 MG/2.5 ML VIAL INHALATION ×4 (02:38→20:36)
[2021-02-03] MEDS: ALBUTEROL SULFATE NEB 2.5 MG/0.5 ML INH 5 MG INHALATION ×4 (02:38→20:35)
[2021-02-03] MEDS: AMPICILLIN SULB 3 GM/NS 100 ML 3 GM/100 ML VIAL IVPB ×4 (04:00→20:57)
[2021-02-03] MEDS: CENTRAL LINE FLUSH 10 ML IV PUSH ×3 (04:01→21:00)
[2021-02-03 06:05] LABS: Anion Gap 7 mmol/L (8-16); Blood Urea Nitrogen 23 mg/dL (9-20); Calcium 7.8 mg/dL (8.4-10.2); Carbon Dioxide 27 mmol/L (22-30); Chloride 117 mmol/L (98-107); Estimated CRCL calculation 60 ml/min; Estimated Glomerular Filt Rate > 60; Glucose 99 mg/dL (65-110); Phosphorus 3.4 mg/dL (2.5-4.5); Potassium 3.9 mmol/L (3.4-5.0); Sodium 151 mmol/L (137-145); Triglycerides 132 mg/dL (<150)
[2021-02-03 06:09] LABS: Hematocrit 27.3 % (42.0-52.0); Hemoglobin 8.5 g/dL (14.0-18.0); Mean Corpuscular HGB Conc 31.1 g/dl (32-36); Mean Corpuscular Hemoglobin 32.6 pg (26-34); Mean Corpuscular Volume 104.6 fl (80-100); Mean Platelet Volume 11.2 fl (7.4-10.4); Platelet Count Result 365 k/mm3 (150-375); Red Blood Count 2.61 M/mm3 (4.6-6.20); Red Cell Distribution Width 15.5 % (11.5-14.5)
[2021-02-03 06:33] LABS: Glucose Point of Care 73 mg/dl (65-105)
[2021-02-03] MEDS: PANTOPRAZOLE SODIUM IV 40 MG VIAL IV PUSH ×2 (08:02→21:00)
[2021-02-03] MEDS: ENOXAPARIN 40 MG/0.4 ML SYRINGE SUB-Q (08:02)
[2021-02-03 08:16] LABS: Glucose Point of Care 138 mg/dl (65-105)
[2021-02-03] MEDS: DORNASE ALFA INH SOLN 1 MG/ML 2.5 ML AMP 2.5 MG INHALATION ×2 (09:05→20:36)
--- NOTE | 2021-02-03 09:55 | PM.IMPN ---
Progress Note: A&P Assessment and Plan (1) Acute respiratory failure: Code(s): J96.00 - Acute respiratory failure, unspecified whether with hypoxia or hypercapnia Status: Acute Assessment and Plan: Currently patient is stable hemodynamically but requiring high volume of oxygen 15 L per nasal cannula. Patient desaturated to 84-86 overnight and had to be started on noninvasive ventilation with BiPAP overnight. Chest x-ray revealed multi segmental bibasilar pneumonia and atelectasis. Patient already on appropriate antibiotic with unasyn. left lung collaspe with right lower lobe pneumonia noted on CTA will add PEP therapy already on pulmozyme. might not tolerate vest but will start if able. (2) Hypotension: Code(s): I95.9 - Hypotension, unspecified Status: Acute Assessment and Plan: Patient was intraop operatively hypotensive but has maintained stable vital signs post arrival to ICU Hemoglobin is stable. (3) SBO (small bowel obstruction): Code(s): K56.609 - Unspecified intestinal obstruction, unspecified as to partial versus complete obstruction Status: Acute Assessment and Plan: Status post Exploratory laparotomy ileal resection with [id number] ileal anastomosis. POD3. Currently NPO and NG tube in place with suction. Management per surgery. Plan to remove NG tube and perform a trial of clear liquids today. P.r.n. morphine for pain control. Give a single dose of Lasix 20 mg IV for gentle diuresis. Will monitor his BMP closely. Continue Unasyn. Physical therapy and occupational therapy when able. Patient continued to require high volume of oxygen at 15 L. Transfer to ICU. On TPN (4) Parkinson's disease: Code(s): G20 - Parkinson's disease Status: Acute Assessment and Plan: p.o. medication currently on hold postop day 3. Resume a home medication when oral intake is tolerated. (5) Postoperative pain: Code(s): G89.18 - Other acute postprocedural pain Status: Acute Assessment and Plan: P.r.n. morphine. Management per surgery. (6) Electrolyte abnormality: Code(s): E87.8 - Other disorders of electrolyte and fluid balance, not elsewhere classified Status: Acute Assessment and Plan: Hypernatremia Give free water. Hypokalemia has been supplemented. Monitor serum sodium a this afternoon. Chloride remains elevated at 115. Subjective Date/time seen: 02/03/21 09:55 Interval history: 75-year-old gentleman with a past medical history including but not limited to Parkinson's disease, recurrent small-bowel obstruction admitted for aspiration pneumonia and small bowel obstruction. patient is postop Ex lap, small bowel resection. no overngiht events, patient awake and alert but weak voice, follows commands, ng twith suction in place, no abdominal pain or chest pain. reports breathign is better. was on NRM but took him off and was saturating well. 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 of Systems Review of Systems: All systems reviewed & are unremarkable except as noted in HPI and below Exam Narrative: Const: General: cooperative, comfortable, no acute distress, well developed, alert, awake and ill appearing Nutritional Appearance: thin Orientation/consciousness: patient oriented x3 HENMT: Head: normal to inspection, normocephalic and atraumatic Ears: hearing grossly normal bilaterally General nose exam: Normal external nose present Face and sinus: normal facial exam Mouth: Yes dry mucous membranes and Yes Abnormal oral and palatal mucosa present Eyes: General: appearance normal, both eyes and all related structures Alignment and Position: alignment normal Sclera: sclerae normal Pupils: Equal, round and reactive pupils present EOM: EOMs intact bilaterally Neck: Neck: normal visual inspection, full ROM, no lymphadenopathy, supple and no JVD Thyroid: thyroid normal Lymphatic: no lymphadenopathy noted Resp: Effor
[2021-02-03] MEDS: DEXTROSE 5% 1,000 ML 1,000 ML 125 ML IV CONT ×2 (11:16→20:56)
[2021-02-03 12:28] LABS: Glucose Point of Care 202 mg/dl (65-105)
--- NOTE | 2021-02-03 13:43 | PC.NURSE ---
spoke with pharmacy about changing time for fat emulsions and amino acids. fat emulsions and amino acids were ordered around 1200 on 02/02. pt did not get PICC line until around 1730 and they were not started until 1800. pharmacist said they cannot change time for when they are due in computer even though I hung them later than when they were ordered yesterday due to waiting for a PICC. pharmacist said to just restart them now and waste the rest of current bag so that the timing is lined up from now on.
--- NOTE | 2021-02-03 13:50 | PCOTNOTE ---
On 02/03/21, the student, Hemalatha Mae, provided care and completed [facility] documentation on this patient. I have reviewed the student's documentation and agree with the findings.
--- NOTE | 2021-02-03 14:20 | PC.NURSE ---
spoke with Dr. Acharya at patient bedside. will change time for lipids to be hung at 1800. will also advance NG tube [address] Acharya
[2021-02-03 14:56] LABS: Glucose Point of Care 181 mg/dl (65-105)
--- NOTE | 2021-02-03 14:56 | PM.PNGS ---
Progress Note: A&P Assessment and Plan (1) Acute respiratory failure: Code(s): J96.00 - Acute respiratory failure, unspecified whether with hypoxia or hypercapnia Status: Acute Assessment and Plan: stable on CPAP. Continue NG tube but will advance about 4-6 inches as it is only in the distal esophagus. Hold off on eating until pulmonary status is better. May wish to consider tube feeds per NG tube. 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 Subjective Subjective Date/Time Seen: 02/03/21 14:56 Post Op day: 4 Patient reports: no new complaints ( Patient only nods, has CPAP and not really verbalized) and fever Review of Systems Review of Systems: ROS unobtainable: Yes unobtainable due to medical condition Exam Const: General: comfortable, no acute distress, alert, awake, anxious and lethargic Nutritional Appearance: thin Limitations: physical limitations GI: Inspection: incision ( dry and healing well) and scaphoid GI Palp: Yes Soft to palpation, No Tenderness to palpation present (GI), No Hernia present and No Palpable mass present Auscultation: normal bowel sounds Objective Data Vital Signs Vital Signs: Vital Signs - 24 hr 02/02/21 16:00 02/02/21 19:40 02/02/21 20:00 Temperature Pulse Rate 96 100 Respiratory Rate Blood Pressure Pulse Oximetry 94 93 02/02/21 20:45 02/02/21 21:02 02/02/21 21:15 Temperature 36.8 C Pulse Rate 104 H 108 H Respiratory Rate 36 H Blood Pressure 115/60 Pulse Oximetry 83 L 98 98 02/02/21 21:40 02/02/21 22:16 02/02/21 22:21 Temperature Pulse Rate 107 H 107 H Respiratory Rate 28 H 28 H Blood Pressure Pulse Oximetry 97 98 02/02/21 22:26 02/03/21 00:00 02/03/21 02:39 Temperature Pulse Rate 109 H 115 H 102 H Respiratory Rate 26 H 33 H Blood Pressure Pulse Oximetry 02/03/21 02:42 02/03/21 02:45 02/03/21 04:00 Temperature Pulse Rate 102 H 99 113 H Respiratory Rate 33 H 34 H Blood Pressure Pulse Oximetry 97 02/03/21 04:06 02/03/21 08:00 02/03/21 09:25 Temperature 37.6 C H Pulse Rate 114 H 100 101 H Respiratory Rate 30 H 26 H 27 H Blood Pressure 103/60 Pulse Oximetry 95 99 02/03/21 09:29 02/03/21 09:36 02/03/21 10:18 Temperature Pulse Rate 101 H 100 100 Respiratory Rate 27 H 22 H 24 H Blood Pressure Pulse Oximetry 99 98 02/03/21 10:47 02/03/21 12:00 02/03/21 13:57 Temperature 38.0 C H Pulse Rate 92 89 Respiratory Rate Blood Pressure Pulse Oximetry 99 02/03/21 14:34 Temperature Pulse Rate 89 Respiratory Rate 24 H Blood Pressure Pulse Oximetry 99 Intake/Output Intake/Output: Intake & Output 01/31/21 02/01/21 02/02/21 02/03/21 23:59 23:59 23:59 23:59 Intake Total 3860 1400 400 450 Output Total 1195 2375 5000 1375 Balance 2665 -975 -4600 -925 Meds/Results Medications: Active Medications Generic Name Dose Route Start Last Admin Trade Name Freq PRN Reason Stop Dose Admin Albuterol 5 mg 02/01/21 23:43 02/03/21 09:25 Albuterol Sulfate Neb 2.5 Mg/0.5 Ml Inh INHALATION 5 mg Q6HRT ANIBAL Administration Dornase Gael 2.5 mg 02/02/21 01:25 02/02/21 22:16 Dornase Gael Inh Soln 1 Mg/Ml 2.5 Ml Amp INHALATION 2.5 mg Q12HRT ANIBAL Administration Enoxaparin Sodium 40 mg 01/28/21 09:00 02/03/21 08:02 Enoxaparin 40 Mg/0.4 Ml Syringe SUB-Q 40 mg DAILY ANIBAL Administration Ampicillin Sodium/Sulbactam
[2021-02-03] MEDS: MORPHINE SULFATE (*CRX) 2 MG/ML INJ IV PUSH ×2 (15:49→18:10)
[2021-02-03 16:55] LABS: Glucose Point of Care 164 mg/dl (65-105)
[2021-02-03] MEDS: AMINO ACIDS 5%/D15W/E-LYTES/CA 2,000 ML with MULTIVITAMINS-12 INJ VIAL 1 2.5 ML, MULTIV... 60 ML IV CONT (18:28)
[2021-02-03] MEDS: FAT EMULSIONS IV 20% 250 ML 20.83 ML IVPB (18:28)
[2021-02-04] VITALS (29 sets, daily range): BP systolic 97–116; BP diastolic 56–60; PULSE 66–120; RESP 16–38; TEMP 36.8–38.6; O2SAT 88–100
[2021-02-04 00:03] LABS: Glucose Point of Care 124 mg/dl (65-105)
[2021-02-04] MEDS: ALBUTEROL SULFATE NEB 2.5 MG/0.5 ML INH 5 MG INHALATION ×3 (02:14→16:19)
[2021-02-04] MEDS: IPRATROPIUM BR 0.02% INH SOLN 0.5 MG/2.5 ML VIAL INHALATION ×3 (02:14→16:20)
[2021-02-04] MEDS: AMPICILLIN SULB 3 GM/NS 100 ML 3 GM/100 ML VIAL IVPB ×2 (02:34→08:00)
[2021-02-04] MEDS: DEXTROSE 5% 1,000 ML 1,000 ML 125 ML IV CONT ×2 (05:27→16:11)
[2021-02-04] MEDS: CENTRAL LINE FLUSH 10 ML IV PUSH ×3 (05:28→20:31)
[2021-02-04 06:10] LABS: Alanine Aminotransferase 14 U/L (4-50); Albumin Level 2.1 g/dL (3.5-5.1); Alkaline Phosphatase 154 U/L (38-126); Anion Gap 8 mmol/L (8-16); Aspartate Amino Transferase 23 U/L (17-59); Bilirubin,Total 0.3 mg/dL (0.2-1.3); Blood Urea Nitrogen 25 mg/dL (9-20); Calcium 7.5 mg/dL (8.4-10.2); Carbon Dioxide 27 mmol/L (22-30); Chloride 113 mmol/L (98-107); Estimated CRCL calculation 67 ml/min; Estimated Glomerular Filt Rate > 60; Glucose 230 mg/dL (65-110); Magnesium 2.2 mg/dL (1.6-2.3); Phosphorus 2.5 mg/dL (2.5-4.5); Potassium 2.9 mmol/L (3.4-5.0); Sodium 148 mmol/L (137-145)
[2021-02-04 06:12] LABS: Hematocrit 23.7 % (42.0-52.0); Hemoglobin 7.3 g/dL (14.0-18.0); Mean Corpuscular HGB Conc 30.8 g/dl (32-36); Mean Corpuscular Hemoglobin 32.4 pg (26-34); Mean Corpuscular Volume 105.3 fl (80-100); Mean Platelet Volume 11.9 fl (7.4-10.4); Platelet Count Result 281 k/mm3 (150-375); Red Blood Count 2.25 M/mm3 (4.6-6.20); Red Cell Distribution Width 15.5 % (11.5-14.5); White Blood Count 23.7 K/mm3 (4.5-10.0)
[2021-02-04 06:22] LABS: Glucose Point of Care 165 mg/dl (65-105)
[2021-02-04 07:56] LABS: Glucose Point of Care 173 mg/dl (65-105)
[2021-02-04] MEDS: PANTOPRAZOLE SODIUM IV 40 MG VIAL IV PUSH ×2 (08:00→20:31)
[2021-02-04] MEDS: ENOXAPARIN 40 MG/0.4 ML SYRINGE SUB-Q (08:00)
[2021-02-04] MEDS: KCL 20 MEQ/SW 100 ML 100 ML 50 MEQ IVPB ×2 (09:14→11:53)
--- NOTE | 2021-02-04 10:08 | PM.PNGS ---
Progress Note: A&P Assessment and Plan (1) Leukocytosis: Code(s): D72.829 - Elevated white blood cell count, unspecified Status: Acute Assessment and Plan: White blood cell count continues to rise. Patient had some low-grade fever as well. Etiology is not clear. Patient is on Unasyn antibiotics. Pulmonary status seems to be improving. Continue to monitor. (2) Acute respiratory failure: Code(s): J96.00 - Acute respiratory failure, unspecified whether with hypoxia or hypercapnia Status: Acute Assessment and Plan: Currently very comfortable off CPAP during the daytime. 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 Patient has benign abdomen with normal appearing wound and good bowel sounds. Continue NG for now but possibly removed tomorrow. (4) SBO (small bowel obstruction): Code(s): K56.609 - Unspecified intestinal obstruction, unspecified as to partial versus complete obstruction Status: Acute (5) Parkinson's disease: Code(s): G20 - Parkinson's disease Status: Chronic Subjective Subjective Date/Time Seen: 02/04/21 10:08 Post Op day: 5 Patient reports: no new complaints, no bowel movement and fever (38.0 yesterday afternoon otherwise afebrile) Interval history: Patient was on CPAP through the night but is tolerating having his CPAP off today with good oxygenation. He is more alert and nods to questions more readily. Some verbalization as well. Denies abdominal pain. No bowel movement yesterday or today. Review of Systems Review of Systems: ROS unobtainable: Yes unobtainable due to medical condition Exam Const: General: comfortable, no acute distress, alert, awake and tired appearing Nutritional Appearance: thin Resp: Effort & Inspection: normal respiratory effort, no audible wheezes, not labored, no retractions and no stridor GI: Inspection: non-distended, incision (Dry, intact, appears to be healing well.) and scaphoid GI Palp: Yes Soft to palpation, Yes Tenderness to palpation present (GI) (Minimal tenderness), No Guarding due to palpation present (GI) and No Rebound tenderness present Auscultation: normal bowel sounds Extrem: General: no calf tenderness and no edema Objective Data Vital Signs Vital Signs: Vital Signs - 24 hr 02/03/21 10:18 02/03/21 10:47 02/03/21 12:00 Temperature Pulse Rate 100 92 89 Respiratory Rate 24 H Blood Pressure Pulse Oximetry 98 99 02/03/21 13:57 02/03/21 14:30 02/03/21 14:34 Temperature 38.0 C H 37.6 C H Pulse Rate 86 89 Respiratory Rate 24 H 24 H Blood Pressure 115/63 Pulse Oximetry 100 99 02/03/21 15:00 02/03/21 15:07 02/03/21 16:00 Temperature Pulse Rate 96 93 80 Respiratory Rate 24 H 22 H Blood Pressure Pulse Oximetry 98 98 02/03/21 18:15 02/03/21 20:00 02/03/21 20:35 Temperature 36.9 C Pulse Rate 84 74 92 Respiratory Rate 25 H 22 H Blood Pressure 117/62 Pulse Oximetry 100 02/03/21 20:47 02/03/21 20:50 02/03/21 21:01 Temperature Pulse Rate 77 73 Respiratory Rate 22 H 22 H Blood Pressure Pulse Oximetry 97 02/03/21 21:04 02/03/21 22:00 02/04/21 00:00 Temperature 36.7 C Pulse Rate 105 H 115 H 103 H Respiratory Rate 24 H 30 H Blood Pressure 102/52 L Pulse Oximetry 97 100 02/04/21 02:15 02/04/21 02:25 02/04/21 04:00 Temperature Pulse Rate 102 H 109 H 101 H Respiratory Rate 23 H 24 H Blood Pressure Pulse Oximetry 100 02/04/21 06:00 02/04/21 06:08 02/04/21 06:15 Temperature 36.9 C Pulse Rate 84 Respiratory Rate 28 H Blood Pressure 116/60 Pulse Oximetry 92 93 94 02/04/21 06:26 02/04/21 06:41 02/04/21 09:15 Temperature Pulse Rate 80 Respiratory Rate 28 H Blood Pressure 97/56 L Pulse Oximetry 95 96 92 02/04/21 09:48 Temperature 37.
[2021-02-04] MEDS: DORNASE ALFA INH SOLN 1 MG/ML 2.5 ML AMP 2.5 MG INHALATION (10:30)
[2021-02-04 11:09] LABS: Lactic Acid Reflex 2.7 mmol/L (0.7-2.1)
--- NOTE | 2021-02-04 11:25 | PM.IMPN ---
Progress Note: A&P Assessment and Plan (1) Acute respiratory failure: Code(s): J96.00 - Acute respiratory failure, unspecified whether with hypoxia or hypercapnia Status: Acute Assessment and Plan: Improvement of oxygen requirement, down to 5 L of oxygen. Patient maintain his saturation overnight and tolerated his BiPAP. Repeat Chest x-ray revealed multi segmental bibasilar pneumonia and atelectasis. Patient already on appropriate antibiotic with unasyn. A lleft lung collaspe with right lower lobe pneumonia noted on CTA. PEP therapy was started; patient already on pulmozyme. Will attempt vibratory vest today. (2) Hypotension: Code(s): I95.9 - Hypotension, unspecified Status: Acute Assessment and Plan: Patient was intraop operatively hypotensive but has maintained stable vital signs post arrival to ICU. He has been stable on the floor duringb last 3 shifts. Today the patient present orthostatic hypotension likely related to dysautonomia in the setting of the advanced Parkinson disease. However patient presents significant leukocytosis at 23.7 with left shift. Will send a basic workup including chest x-ray, blood culture, lactic acid. Unasyn was discontinued the patient was started on Zosyn. (3) SBO (small bowel obstruction): Code(s): K56.609 - Unspecified intestinal obstruction, unspecified as to partial versus complete obstruction Status: Acute Assessment and Plan: Status post Exploratory laparotomy ileal resection with [id number] ileal anastomosis. POD4. Currently NPO and NG tube in place with suction. Management per surgery. Plan to remove NG tube and perform a trial of clear liquids today. P.r.n. morphine for pain control. Give a single dose of Lasix 20 mg IV for gentle diuresis. Will monitor his BMP closely. Patient currently started on Zosyn. (4) Parkinson's disease: Code(s): G20 - Parkinson's disease Status: Chronic Assessment and Plan: Speech therapy for bedside swallow evaluation. Resume a home medication when oral intake is tolerated. (5) Postoperative pain: Code(s): G89.18 - Other acute postprocedural pain Status: Acute Assessment and Plan: P.r.n. morphine. Management per surgery. (6) Electrolyte abnormality: Code(s): E87.8 - Other disorders of electrolyte and fluid balance, not elsewhere classified Status: Acute Assessment and Plan: Persistent Hypernatremia continue free water. Hypokalemia has been supplemented. Monitor serum sodium this afternoon. Chloride remains elevated at 113. Subjective Date/time seen: 02/04/21 11:25 S: Interval: 75-year-old gentleman with a past medical history including but not limited to Parkinson's disease, recurrent small-bowel obstruction admitted for aspiration pneumonia and small bowel obstruction. patient is postop Ex lap, small bowel resection. There were no overnight events; mild fever yesterday at 100.4F. Today the patient is seen at the bedside; patient awake and alert but weak voice, follows commands, NG tube with suction in place, no abdominal pain or chest pain. reports breathing is better. Today he was hypotensive when OOBC and febrile at 100.3F. Review of Systems Review of Systems: All systems reviewed & are unremarkable except as noted in HPI and below Constitutional: Constitutional: Denies chills, Reports fatigue, Denies fever(s), Reports lethargy, Reports poor appetite and Reports weakness Eyes: Eyes: Denies change in vision ENT: Reports dysphagia, Denies vertigo, Denies dizziness, Denies nasal congestion, Denies nasal discharge, Denies nasal obstruction and Denies odynophagia Cardiovascular: Cardiovascular: Denies syncope, Denies irregular heart rhythm, Denies leg edema, Denies lightheadedness, Denies radiating jaw, neck or arm pain, Denies palpitations, Denies dyspnea, Denies dyspnea on exertion and Denies orthopnea Respiratory: Respiratory: Den
[2021-02-04 12:11] LABS: Glucose Point of Care 134 mg/dl (65-105)
[2021-02-04 13:46] LABS: Hemoglobin 7.1 g/dL (14.0-18.0); Immature Platelet Fraction Pct 12.5 % (0.9-11.2); Mean Corpuscular HGB Conc 30.9 g/dl (32-36); Mean Corpuscular Volume 103.6 fl (80-100); Mean Platelet Volume 12.2 fl (7.4-10.4); Platelet Count Result 231 k/mm3 (150-375); Red Blood Count 2.22 M/mm3 (4.6-6.20); Red Cell Distribution Width 15.3 % (11.5-14.5); White Blood Count 22.3 K/mm3 (4.5-10.0)
[2021-02-04 14:02] LABS: Reflex Lactic Acid Yes or No Add Lactic
[2021-02-04 14:19] LABS: Band Neutrophils Percent 32 % (0-6); Lymphocytes Absolute Manual 0.66 K/mm3 (1.1-4.5); Monocytes Absolute Manual 0.22 K/mm3 (0.1-0.90); Monocytes Percent Manual 1 % (3-9); Neutrophils Percent Manual 64 % (46-73); Total Cells Counted 100
[2021-02-04 14:20] LABS: Dohle Bodies Present (NORMAL); Platelet Clumps Present; Platelet Estimate Adequate (Adequate)
[2021-02-04 15:19] LABS: Lactic Acid 1.9 mmol/L (0.7-2.1)
[2021-02-04 16:59] LABS: Glucose Point of Care 85 mg/dl (65-105)
[2021-02-04] MEDS: AMINO ACIDS 5%/D15W/E-LYTES/CA 2,000 ML with MULTIVITAMINS-12 INJ VIAL 1 2.5 ML, MULTIV... 60 ML IV CONT (17:53)
[2021-02-04] MEDS: FAT EMULSIONS IV 20% 250 ML 20.83 ML IVPB (17:54)
--- NOTE | 2021-02-04 20:54 | PM.EVENT ---
Event Note Event Note Event Note: 02/04/2021 at 8:50 p.m. Nursing staff called as patient is having fevers of 101.4. The patient is tachycardic and tachypneic with respiratory rate of 30. The patient is refusing to leave BiPAP in place. He is on 13 L high-flow nasal cannula. The patient's labs were reviewed and demonstrated worsening leukocytosis and bandemia. The patient's antibiotics were switched to Zosyn today. I have provided orders for IV acetaminophen. Given his pneumonia possible element of postobstructive pneumonia and the fact that he has been hospitalized for so long at this point will add vancomycin to cover for possible healthcare associated pneumonia. Clinical condition: Unstable Prognosis: Poor
[2021-02-04 23:57] LABS: Glucose Point of Care 148 mg/dl (65-105)
[2021-02-05] VITALS: PULSE 88
[2021-02-05] MEDS: DEXTROSE 5% 1,000 ML 1,000 ML 125 ML IV CONT (03:12)
[2021-02-05 04:00] VITALS: PULSE 160
--- NOTE | 2021-02-05 04:10 | PC.NURSE ---
notified of patients condition and decided to have pt have comfort care. DNR status. Dr Fink made aware and orders received
[2021-02-05 04:21] LABS: Alveolar/Arterial O2 Gradient 446.2 mmHg; Base Excess ABG -3.1 mEq/l (+/-2.0); Fractional Inspired Oxygen 72 %; HCO3 ABG 19.1 mEq/l (22.0-26.0); Oxygen Content ABG 9.9 %vol (16.0-22.0); PCO2 ABG 25.1 mmHg (35.0-45.0); PO2 FiO2 Ratio Arterial Blood 0.56 %; Total Hemoglobin 9.3 g/dL (12.0-18.0)
[2021-02-05 04:22] LABS: Oxygen Saturation ABG 81.5 % (95.0-100.0)
[2021-02-05 04:23] LABS: Device HIGH FLOW NASAL CANN; Modified Allen's Test Pass; Oxyhemoglobin 75.5 % THb (90.0-100.0); PO2 ABG 40.3 mmHg (80.0-100.0); Site Drawn RIGHT RADIAL
[2021-02-05 04:25] VITALS: RESP 32; TEMP 37.9
[2021-02-05] MEDS: MORPHINE SULFATE (*CRX) 4 MG/ML INJ 1 MG IV PUSH (04:56)
--- NOTE | 2021-02-05 06:45 | PC.NURSE ---
Called into patient room at bedside pt with out pulse and no respirations. Dr Fink notified.
--- NOTE | 2021-02-09 13:05 | PM.DDS ---
Discharge Summary Date and Time Date of : 02/05/21 Time of : 06:15 Provider Pronounced By: Alix Sorensen Probable Cause of Probable Cause of : Acute respiratory failure Septic shock Healthcare associated pneumonia Summary Hospital Course: 75-year-old gentleman with a past medical history including but not limited to Parkinson's disease, recurrent small-bowel obstruction admitted for aspiration pneumonia and small bowel obstruction. patient is postop Ex lap, small bowel resection. There were no overnight events; mild fever yesterday at 100.4F. Today the patient is seen at the bedside; patient awake and alert but weak voice, follows commands, NG tube with suction in place, no abdominal pain or chest pain. reports breathing is better. Today he was hypotensive when OOBC and febrile at 100.3F. 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
== END 2021-02-05 11:05 | disposition expired | DRG 329 ==
LOC: ANHED 21:53 → ANH2MED 01-27 03:53 → ANHICU 02-06 15:23
PROVIDERS: Internal Medicine; Nurse Practitioner; Physician Assistant; Surgery; Admitting Provider Internal Medicine; Emergency Provider Emergency Medicine; PCP Family Medicine; Visit Provider Physician Assistant
PROC: 0DTB0ZZ Resection of Ileum, Open Approach (ICD-10-PCS; CPT 49000; principal; 2021-01-30 13:30)
DX: K56.690 Other partial intestinal obstruction (principal); J69.0 Pneumonitis due to inhalation of food and vomit; J96.00 Acute respiratory failure, unspecified whether with hypoxia or hypercapnia; J18.9 Pneumonia, unspecified organism; A41.9 Sepsis, unspecified organism; R65.21 Severe sepsis with septic shock; N17.9 Acute kidney failure, unspecified; E87.0 Hyperosmolality and hypernatremia; R18.8 Other ascites; J84.9 Interstitial pulmonary disease, unspecified; C7A.8 Other malignant neuroendocrine tumors; R13.10 Dysphagia, unspecified; F32.A Depression, unspecified; K21.9 Gastro-esophageal reflux disease without esophagitis; E78.5 Hyperlipidemia, unspecified; I10 Essential (primary) hypertension; M81.0 Age-related osteoporosis without current pathological fracture; G20 Parkinson's disease; Z85.46 Personal history of malignant neoplasm of prostate; Z85.828 Personal history of other malignant neoplasm of skin; Z96.649 Presence of unspecified artificial hip joint; I69.341 Monoplegia of lower limb following cerebral infarction affecting right dominant side; E86.0 Dehydration; E87.6 Hypokalemia; G89.18 Other acute postprocedural pain; E87.8 Other disorders of electrolyte and fluid balance, not elsewhere classified; I95.89 Other hypotension; R00.0 Tachycardia, unspecified; Y95 Nosocomial condition
CPT/HCPCS: 36415; 36569; 36600; 71045; 71250; 71275; 73206; 74018; 74019; 74176; 80048; 80053; 81001; 82805; 82948; 83605; 83735; 84100; 84132; 84466; 84478; 85025; 85027; 85055; 85730; 87040; 87045; 87427; 88307; 88309; 88342; 92526; 92610; 93971; 94002; 94003; 94640; 94669; 96361; 96365; 97110; 97162; 97166; 97530; 97535; 99285; A9270; C1751; C9113; J0131; J0295; J1100; J1170; J1650; J1940; J2270; J2405; J2543; J2704; J2710; J3010; J3370; J3480; J7030; J7060; J7070; J7120; Q9967